=== PATIENT | male | born 1940 | race Caucasian/White ===

== ENCOUNTER 2016-11-15 19:16 | Inpatient (IN) ==
--- NOTE | 2016-11-15 20:10 | Emergency Department Note ---
Arrival - Arrival ED Nursing Triage Note: C/C Pt is being transferred from [facility] for Dx Bilat DVT in femoral arteries. Mode of Arrival: Stretcher - Arrival Chief Complaint: Extremity Problem Stated Complaint: DVT Time Seen by Provider: 11/15/16 19:52 - History of Present Illness HPI Narrative: Patient 76-year-old white male was transferred from [facility] with complaint of bilateral lower extremity pain. Patient was noted to have decreased flow in both superficial femoral arteries and was referred here to Dr. Stokes for further evaluation. Patient does have [id number] history of tobacco abuse but has quit smoking. He denies any trauma or injuries and states she is noticing increasing pain in his lower extremities with ambulation. (Juan J Jolly) Allergies/Adverse Reactions: Allergies Allergy/AdvReac Type Severity Reaction Status Date / Time No Known Allergies Allergy Unverified 11/15/16 19:31 Review of System - Review of System 12 point system: reviewed and no additional remarkable complaints except as stated - Review of System Cardiovascular: Absent: chest pain Gastrointestinal: Absent: abdominal pain, nausea, vomiting Musculoskeletal: Present: as per HPI, leg pain Medical,Surgical,& Family Hx - Medical History Cardio: History of: Hypertension Respiratory: History of: COPD, Respiratory Problems (Spotaneous Pneumo when young) Genitourinary: History of: Prostate Problems (BPH) Musculoskeletal: History of: Musculoskeletal Problems (left knee "cartiledge") - Surgical History Surgical History: noncontributory - Family History Family History: noncontributory - Social History Smoking Status: Current every day smoker Frequency of Alcohol Use: Frequently Type of Drug Use: None Exam - General General appearance: alert, in no apparent distress - Head Head exam: Present: normal inspection - Eye Eye exam: Present: PERRL, EOMI - ENT ENT exam: Present: normal exam, mucous membranes moist - Neck Neck exam: Present: normal inspection - Chest Chest inspection: Present: normal inspection - Respiratory Respiratory exam: Present: normal lung sounds bilaterally - Cardiovascular Cardiovascular exam: Present: regular rate, normal rhythm, normal heart sounds - Abdominal Exam Abdominal exam: Present: soft, normal bowel sounds. Absent: tenderness - Extremities Exam Extremities exam: Present: normal inspection, other (Pedal pulses are not palpable. Both feet are warm to touch) - Neurological Exam Neurological exam: Present: alert, oriented X3, CN II-XII intact. Absent: motor sensory deficit - Psychiatric Psychiatric exam: Present: normal affect - Skin Skin exam: Present: warm, dry Vital Signs: Vital Signs Temperature 100 F H 11/15/16 19:18 Pulse Rate 116 H 11/15/16 19:18 Respiratory Rate 18 11/15/16 19:18 Blood Pressure 117/68 11/15/16 19:18 O2 Sat by Pulse Oximetry 94 L 11/15/16 19:18 Course Course Narrative: Patient discussed with Dr. Jj and Dr. Yasir Wen. Patient be admitted and CTA will be ordered for the morning. CT of the abdomen and chest performed at the other facility are being reviewed by Dr. Wen. (Juan J Jolly) This patient was seen and examined. He has about a 1 month history of right foot numbness and difficulty moving his toes as well as intermittent sharp shooting pains in his right foot and his right buttock. He went to an outside hospital recently where it looked like he had evidence of urinary tract infection and also had chronic ischemic findings of his both feet and ultrasound Doppler with waveforms was performed showing what looked like chronic occlusions of both superficial femoral arteries that reconstituted in the tibial vessels and he did have flow in his feet. He was transferred here for further evaluation and management. Dr. Jolly has discussed the case with Dr. Stokes who agreed to admit the patient get a CT with runoff in the morning. I have examined the patient personally and he has no Doppler signal in his feet but he does have capillary refill and no evidence of acute limb threatening ischemia or gangrene. I do notice that his CK was elevated at the outside hospital but was improving on repeat labs. We will repeat his urinalysis here and get a repeat set of labs prior to another contrast load since he did get a CT scan with IV contrast of his chest abdomen and pelvis yesterday but his creatinine is normal so this should not be a problem to do a runoff CT on this admission. The patient was placed on Plavix and Pletal as well as heparin at the outside hospital. He does not appear to have anything that would require continuation of therapeutic anticoagulation at this time. ( Yasir Wen) Disposition Case discussed with: patient Time of Disposition: 20:12 Clinical Impression: Peripheral vascular disease
[2016-11-15] MEDS ORDERED: ONDANSETRON 4 MG/2 ML VIAL IV PRN (20:12)
[2016-11-15 20:42] LABS: Basophils % 0.1 % (0.0-0.8)
[2016-11-15 21:01] LABS: Hematocrit 51.7 VOL% (42.0-52.0); Hemoglobin 19.5 GM/DL (14.0-18.0); Immature Granulocytes % 0.5 %; Immature Granulocytes Absolute 0.04 #; Lymphocytes # 0.7 10*3/uL (1.4-4.0); Lymphocytes % 8.1 % (21.2-54.2); Mean Corpuscular HGB Conc 37.7 GM/DL (32-36); Mean Corpuscular Hemoglobin 40 PG (27-34); Mean Corpuscular Volume 105.3 FL (87-102); Mean Platelet Volume 9.6 FL (9.6-12.0); Monocytes # 0.5 10*3/uL (0.11-0.8); Monocytes % 5.6 % (1.7-12.7); Neutrophils # 7.1 10*3/uL (1.4-7.4); Neutrophils % 85.7 % (38.7-73.9); Platelet Count 150 T/CUMM (130-400); Red Blood Count 4.91 MC/CUMM (3.8-5.5); White Blood Count 8.2 T/CUMM (4-12)
[2016-11-15] MEDS ORDERED: ENOXAPARIN 60 MG/0.6 ML SYRINGE SUBCUT STA (21:01)
[2016-11-15] MEDS ORDERED: ENOXAPARIN 60 MG/0.6 ML SYRINGE ONE (21:05)
--- NOTE | 2016-11-15 21:05 | Event Note ---
The patient has no contraindications to therapeutic anticoagulation. I have gone over these with him including falls, recent surgery, head trauma. He has no hematuria. 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 He does have runoff to his posterior tibial artery on the left side to his foot but on the right side all 3 of his tibial arteries go out in his mid lower leg. Because of this we will go ahead and treat him with Lovenox therapeutic and allow Dr. Stokes review his images tomorrow.
--- NOTE | 2016-11-15 21:06 | Emergency Department Note ---
Marly Cordova Hilary, am scribing for, and in the presence of, Yasir Wen MD 20:22 . Behzad Cordova Hans, MD, personally performed the services described in this documentation, ascribed by Angeli Luke in my presence, and it is both accurate and complete . Arrival - Arrival Chief Complaint: Extremity Problem Stated Complaint: DVT ED Nursing Triage Note: C/C Pt is being transferred from [facility] for Dx Bilat DVT in femoral arteries. Mode of Arrival: Stretcher Limitations: No Limitations Source: Patient, RN Notes Reviewed Time Seen by Provider: 11/15/16 19:52 - History of Present Illness HPI Narrative: Pt is a 76 y/o male transferred from [facility] via EMS with Dx Bilat DVT in femoral arteries. Pt states that he hasn't had feeling in his feet or toes for 2 months and that he has had intermittent shooting pain down the backside of his legs when he bares weight on them. He reports this feeling getting progressively worse throughout the month and that he just "couldn't stand the pain". He also complaints or right buttocks pain but reports that it doesn't come with the leg pain. No other complaints or problems stated in the ED. Onset (ago): month(s) Consistency: intermittent Severity: moderate Severity scale (1-10): 2 Quality: sharp Allergies/Adverse Reactions: Allergies Allergy/AdvReac Type Severity Reaction Status Date / Time No Known Allergies Allergy Unverified 11/15/16 19:31 Review of System - Review of System 12 point system: reviewed and no additional remarkable complaints except as stated - Review of System Constitutional: Present: weakness. Absent: fever Cardiovascular: Absent: chest pain Musculoskeletal: Present: leg pain (bilaterally) Neurological: Present: weakness (in legs) Medical,Surgical,& Family Hx - Medical History Cardio: History of: Hypertension Respiratory: History of: COPD, Respiratory Problems (Spotaneous Pneumo when young) Genitourinary: History of: Prostate Problems (BPH) Musculoskeletal: History of: Musculoskeletal Problems (left knee "cartiledge") - Social History Smoking Status: Current every day smoker (a pack a day for 54 years) Frequency of Alcohol Use: Frequently Type of Drug Use: None Exam Vital Signs: Vital Signs Temperature 100 F H 07/28/17 19:18 Pulse Rate 116 H 11/15/16 19:18 Respiratory Rate 18 11/15/16 19:18 Blood Pressure 117/68 11/15/16 19:18 O2 Sat by Pulse Oximetry 94 L 11/15/16 19:18 - General General appearance: alert, in no apparent distress - Head Head exam: Present: atraumatic, normocephalic - Eye Eye exam: Present: normal appearance, PERRL, EOMI - ENT ENT exam: Present: mucous membranes moist, TM's normal bilaterally. Absent: mucous membranes dry - Neck Neck exam: Present: full ROM, trachea midline. Absent: tenderness - Chest Chest inspection: Present: symmetric chest wall rise - Respiratory Respiratory exam: Present: normal lung sounds bilaterally. Absent: respiratory distress - Cardiovascular Cardiovascular exam: Present: normal rhythm, tachycardia, normal heart sounds. Absent: murmur, rubs, gallop - Abdominal Exam Abdominal exam: Present: soft, normal bowel sounds. Absent: distention, tenderness - Extremities Exam Extremities exam: Present: full ROM, calf tenderness, other (Right leg is cooler than the left. 4/5 strength in toes and 5/5 dorsal. monophasic doppler in left but not in right leg. Palpable femoral artery. Capillary refill delayed but no doppler signal in right foot. ). Absent: tenderness - Back Exam Back exam: Present: full ROM. Absent: tenderness - Neurological Exam Neurological exam: Present: alert, oriented X3, CN II-XII intact. Absent: motor sensory deficit - Psychiatric Psychiatric exam: Present: normal affect, normal mood - Skin Skin exam: Present: warm, dry, intact, normal color. Absent: rash Course Course Narrative: Please see course narrative that was added to the note that was started by Dr. Jolly. Results - Labs CBC & BMP: 11/15/16 20:27 Lab Results: I have reviewed the patients labs Labs: Laboratory Tests 11/15/16 20:45 POC Creatinine 0.62 L POC Estimated GFR (eGFR) > 60 Disposition Clinical Impression: Peripheral vascular disease Disposition: Still a Patient Condition: Stable Time of Disposition: 21:06
[2016-11-15 21:20] LABS: Calcium 8.2 MG/DL (8.5-10.1); Magnesium 1.8 MG/DL (1.8-2.4); Osmolality,Calculated 270.8 MOS/KG (273-304); Potassium 3.1 MMOL/L (3.5-5.1)
[2016-11-16] MEDS: DEXTROSE 5% NACL 0.45% 1,000 ML IV SCH ×3 (00:07→16:50)
[2016-11-16] MEDS: ALBUTEROL/IPRATROPIUM 3 ML NEB RESP TX SCH ×4 (00:36→20:02)
[2016-11-16] MEDS: ACETAMINOPHEN 325 MG TABLET PO PRN (01:48)
[2016-11-16 04:26] LABS: Apearance,Urine CLEAR (Clear); Bilirubin,Urine Negative (Negative); Blood, Urine Large mg/dL (Negative); Glucose,Urine (UA) Negative (Negative); Ketones,Urine Negative (Negative); Nitrite,Urine Negative (Negative); Protein,Urine Negative; RBC,Urine 13 /HPF (0-4); Urine Color Yellow (Yellow); Urine Specific Gravity 1.006 (1.001-1.035); Urine Urobilinogen < 2.0 EU/DL (0.2-1.0); WBC,Urine 37 /HPF (0-6)
--- NOTE | 2016-11-16 08:10 | CT Report ---
CT angio abdomen/femoral Indication: Peripheral vascular disease. Right calf pain. Comparison: None. Technique: Following administration of intravenous contrast, multiple contiguous axial images were obtained from the mid to lower chest through the feet. Additionally, 3-D Volumetric reconstructions of the aorta and bilateral lower extremity arterial structures were performed. Coronal and sagittal MPR series were initially submitted. The CT examination was performed using one or more of the following dose reduction techniques: Automatic exposure control, adjustment of the mA and kV according to patient size, use of acute or iterative reconstruction techniques. Findings: Vascular findings: The right superficial femoral artery occludes at the origin. Branches of the deep femoral artery supplying intramuscular branches are widely patent and reconstituted flow is noted within the proximal to mid right popliteal artery. The right popliteal artery demonstrates diffuse disease with some areas of mild to moderate stenosis suggested. Below the level of the right knee, 3 vessel runoff to the right ankle is present with gradual diminution of contrast noted within the anterior tibial artery which is suggested to represent flow phenomenon. The left superficial femoral artery occludes at the origin. The left deep femoral artery is patent and provides multiple intramuscular collaterals. The left popliteal artery reconstitutes in the proximal to mid vessel and demonstrates moderate stenosis at the level of the femoral condyles. Flow level of the left knee, relatively minimal disease is present with three-vessel runoff to the left ankle demonstrated. Gradual diminution of contrast within the left anterior tibial artery likely represents flow phenomenon. Lower thoracic aorta demonstrates no significant abnormality. Suprarenal abdominal aorta demonstrates scattered intimal calcification. The celiac axis, common hepatic artery and proper hepatic artery, splenic artery, as well as superior mesenteric artery appear patent. There is moderate to severe stenosis of the splenic artery suggested within the mid vessel at the level of the pancreatic tail. The right renal artery demonstrates intimal calcification with multiple wilton renal arteries noted on the left. The infrarenal abdominal aorta demonstrates diffuse intimal calcification without evidence of aneurysm formation, significant stenosis, or occlusion. Common iliac arteries and external iliac arteries are widely patent. The distal common femoral arteries bilaterally demonstrate intimal calcification with minimal stenosis associated. Nonvascular findings: A large hiatal hernia is present within the chest. Centrilobular emphysematous changes appear moderately advanced. Heart size is normal. Dependently layering attenuation within the gallbladder fundus may reflect vicarious excretion of contrast or high attenuation sludge. No findings are present to suggest acute cholecystitis. Bilateral renal cysts are present. Numerous diverticula are present involving descending and sigmoid colon. No acute inflammatory changes to suggest acute diverticulitis are present. Serrano catheter decompresses the urinary bladder. The prostate appears upper limits of normal in size. Musculature of the lower extremities is bilaterally symmetric with no evidence of significant atrophy. Impression: 1. Bilateral superficial femoral artery occlusion is demonstrated with reperfusion of each popliteal artery arising from geniculate branches and deep muscular branches probably supplied from the deep femoral artery. 2. There appears to be relatively minimal disease below the level of each knee with three-vessel runoff likely. Gradual diminution of contrast within the anterior tibial arteries likely reflects flow phenomenon from flow limitation. 3. Nonvascular findings are present as detailed. 11/16/2016 8:01 AM PROCEDURE INTERPRETED AT [facility] DEPARTMENT OF RADIOLOGY Final Report Signed by: Dr. Brennen Pritchard
--- NOTE | 2016-11-16 09:12 | General Surg History&Physical ---
Assessment and Plan (1) Ischemia of right lower extremity Status: Acute Assessment and plan: Mr. Wilson appears to develop some acute on chronic ischemia of his right lower leg. He has tenderness but without swelling or firmness of the right calf he has coolness the foot and complains of paresthesia of the plantar surface of the foot he has good vein filling does not have clear evidence of deep vein thrombosis but I have some concerns that could be the onset of his acute pain. In review of the CT angiogram he appears to have acute appears to have chronic occlusion of both superficial femoral arteries but with reconstitution of contusion of the popliteals and flow into the tibial vessels at least to the ankle bilaterally. My plan will be to continue Lovenox and to get venous Dopplers this morning of the right leg to be certain there is not deep vein thrombosis. I have explained to Mr. Wilson that he is not in acute risk of limb loss but certainly a right femoral-popliteal bypass may be most appropriate to restore blood flow. I have also explained the necessity of smoking cessation which we will certainly began while here in the hospital. He has been admitted with a Serrano catheter states he has a history of BPH and takes Flomax and developed urinary retention while in the hospital layer I am going to try to take the Serrano catheter out and see if he can urinate without having to replace it during this hospitalization Current Visit: Yes History of Present Illness Chief complaint: painful right leg History of present illness: Mr. Robbins is a 76 year old male Referral [age]-year-old man who was hospitalized at [facility] by Dr. Becker with acute onset of right calf pain and numbness in his right foot he states this developed approximately a week ago. Reportedly there were ultrasounds and CT scans done and Haemophilus that indicated occlusion of the superficial femoral artery. Patient was transferred here yesterday to me after speaking with the hospital at [place] who was not sure that they had the ability to treat patient there. We have repeated a CT angiogram which basically shows an open aorta and iliacs to the common femoral bilateral occlusions of the superficial femorals with reconstitution of the popliteals and what looks like three-vessel runoff and to both lower ankles. Patient has acute pain in the calf and numbness and coolness in the right foot has no past history of deep vein thrombosis. I do not have any reports from [facility] that to tell me in the ultrasound of the veins were done there. Notably the patient has a long history of cigarette smoking and hypertension there is a family history of atherosclerosis he does not however give a history of heart disease heart failure or known pulmonary disease. He does report having some difficulties with BPH and urinary retention apparently had some difficulty when hospitalized and has come here with a Serrano catheter. Reports that he has had back troubles in the past that have caused him to have chronic pain Home Medications Medication Instructions Recorded Confirmed Type Amlodipine Besylate [Amlodipine 1 tablet PO DAILY 11/15/16 11/15/16 History Besylate] Cilostazol [Cilostazol] 1 tablet PO BID 11/15/16 11/15/16 History Fluoxetine HCl [Fluoxetine HCl] 1 caplet PO DAILY 11/15/16 11/15/16 History Hydrocodone/Acetaminophen 1 tablet PO BID PRN 11/15/16 11/15/16 History [Hydrocodon-Acetaminophn 10-325] Lisinopril/Hydrochlorothiazide 1 tablet PO DAILY 11/15/16 11/15/16 History [Lisinopril-Hctz 20-25 mg Tab] Tamsulosin HCl [Tamsulosin HCl] 1 caplet PO DAILY 11/15/16 11/15/16 History cephALEXin [Cephalexin] 1 capsule PO TID 11/15/16 11/15/16 History cloNIDine HCl [Clonidine HCl] 1 tablet PO DAILY 11/15/16 11/15/16 History Allergies Allergy/AdvReac Type Severity Reaction Status Date / Time No Known Allergies Allergy Unverified 11/15/16 19:31 Medical,Surgical,& Family Hx - Medical History Cardio: History of: Hypertension Psychological: History of: Anxiety Disorders, Depression HEENT: History of: Eye Problem ("drifting spots" in field of vision) Endocrine: History of: Dyslipidemia Respiratory: History of: COPD, Respiratory Problems (Spontaneous Pneumo when young (23 yr old)) Genitourinary: History of: Prostate Problems (BPH) Musculoskeletal: History of: Musculoskeletal Problems - Surgical History Abdominal Surgeries: Surgical HX of: Colonoscopy Orthopedic Surgeries: Surgical HX of;: Orthopedic Surgery (Avtar in right pinky, later removed) - Family History Family History: Reports;: Family Cancer (father, melanoma), Additional Family History (mother, aneurysm) - Social History Smoking Status: Current every day smoker Frequency of Alcohol Use: Frequently Type of Drug Use: None Exam - Constitutional Vitals: Period Temp Pulse Resp BP Sys/Sarmiento Pulse Ox Last 24 Hr 97.6 F-100 F 82-116 16-20 96-118/60-71 94-100 General appearance: mild distress, under weight - Head Head exam: Present: normal inspection - Eye Eye exam: Present: EOMI Pupils: Present: SAMEER - ENT Mouth exam: Present: normal voice - Neck Neck exam: Present: normal inspection, trachea midline - Respiratory Respiratory exam: Present: clear to auscultation bilaterally - Cardiovascular Cardiovascular exam: Present: carotid bruit (No carotid bruits), RRR - GI/Abdominal GI/Abdominal exam: Present: normal bowel sounds, soft - Expanded Right Lower Upper Leg exam: Present: normal inspection Knee exam: Present: normal inspection Lower leg exam: Present: tenderness Neuro vascular tendon exam: Present: decreased fine/light touch, extremity cold to touch, pulse deficit (Patient is tender in his calf complains of numbness on the plantar surface of the right foot the foot clearly is cooler than the left but does have reperfusion and is not acutely ischemic. He does not have any significant swelling or evidence of chronic venous stasis.) Gait: Present: not tested/not observed - Back Exam Back exam: Present: normal inspection - Neurological Exam Neurological exam: Present: alert, oriented X3 Speech: Present: normal - Skin Skin exam: Present: dry 12 point system: reviewed and no additional remarkable complaints except as stated Results - Labs CBC & BMP: 11/15/16 20:27 11/15/16 20:27
[2016-11-16] MEDS: PANTOPRAZOLE 40 MG TABLET PO SCH (09:16)
[2016-11-16] MEDS: ENOXAPARIN 60 MG/0.6 ML SYRINGE SUBCUT SCH ×2 (09:16→21:36)
[2016-11-16] MEDS: LISINOPRIL/HCTZ 20-25 MG TABLET PO SCH (10:39)
[2016-11-16] MEDS: amLODIPine 10 MG TABLET PO SCH (10:39)
[2016-11-16] MEDS: FLUoxetine 20 MG CAPSULE PO SCH (10:39)
[2016-11-16] MEDS: POTASSIUM CHLORIDE 20 MEQ TABLET PO SCH ×2 (10:40→21:37)
[2016-11-16] MEDS: TAMSULOSIN 0.4 MG CAPSULE PO SCH (10:40)
[2016-11-16] MEDS: cloNIDine 0.1 MG TABLET PO SCH (10:43)
--- NOTE | 2016-11-16 11:06 | Ultrasound Report ---
US venous doppler LE RT Indication: Acute right calf pain. Comparison: None. Technique: Using transcutaneous probe, color Doppler, spectral Doppler, and grayscale images prior to and following compression were obtained of the right lower extremity. Ultrasound images were captured and stored. Interrogated venous structures include the right common femoral vein, superficial femoral vein (proximal, mid, and distal), and popliteal vein. Findings: There is no evidence of thrombus within the interrogated right lower extremity venous structures. Spectral flow and color flow are present within the interrogated venous segments. Impression: 1. No evidence of venous thrombosis. 11/16/2016 11:03 AM PROCEDURE INTERPRETED AT [facility] DEPARTMENT OF RADIOLOGY Final Report Signed by: Dr. Brennen Pritchard
[2016-11-16] MEDS ORDERED: LORazepam 2 MG/1 ML VIAL IV PRN (18:51)
[2016-11-16] MEDS ORDERED: DIAZEPAM 10 MG/2 ML SYRINGE IM PRN (19:47)
--- NOTE | 2016-11-16 19:53 | Hospitalist Consult Note ---
Assessment and Plan (1) BPH (benign prostatic hyperplasia) Status: Acute Assessment and plan: The patient is admitted to the hospital with vascular insufficiency of the right lower extremity. The patient has developed agitation and symptoms which could be urinary retention. I am going to ask the nurses to obtain bladder scan and perform in and out bladder catheterization if the bladder is greater than 300 cc. Alternatively, the patient might be having withdrawal phenomena. I am going to order Valium oral and IM if necessary in order to improve agitation. Current Visit: Yes (2) Peripheral vascular disease Status: Acute Current Visit: Yes (3) Ischemia of right lower extremity Status: Acute Current Visit: Yes History of Present Illness - Data of Consult Patient: new to practice Consult date: 11/16/16 Requesting Physician: Joel Stokes - Consult Narrative Reason for consult: Agitation History of present illness: Mr. Robbins is a 76 year old male with history of benign prostatic hypertrophy. The patient was admitted to the hospital with concerns of arterial circulation insufficiency in the right leg. The patient has become anxious this afternoon and evening and less cooperative with care. The patient is sitting on toilet and trying to urinate repeatedly. The patient appears befuddled and mildly hypervigilant. The patient was not accusatory towards me or violent. The staff has noticed that he is tachycardic and blood pressure more elevated than before. Serrano catheter had been discontinued earlier in the day. CC: Joel Stokes MD - Home Medications and Allergies Home Medications: Home Medications Medication Instructions Recorded Confirmed Type Amlodipine Besylate [Amlodipine 1 tablet PO DAILY 11/15/16 11/15/16 History Besylate] Cilostazol [Cilostazol] 1 tablet PO BID 11/15/16 11/15/16 History Fluoxetine HCl [Fluoxetine HCl] 1 caplet PO DAILY 11/15/16 11/15/16 History Hydrocodone/Acetaminophen 1 tablet PO BID PRN 11/15/16 11/15/16 History [Hydrocodon-Acetaminophn 10-325] Lisinopril/Hydrochlorothiazide 1 tablet PO DAILY 11/15/16 11/15/16 History [Lisinopril-Hctz 20-25 mg Tab] Tamsulosin HCl [Tamsulosin HCl] 1 caplet PO DAILY 11/15/16 11/15/16 History cephALEXin [Cephalexin] 1 capsule PO TID 11/15/16 11/15/16 History cloNIDine HCl [Clonidine HCl] 1 tablet PO DAILY 11/15/16 11/15/16 History Allergies/Adverse Reactions: Allergies Allergy/AdvReac Type Severity Reaction Status Date / Time No Known Allergies Allergy Unverified 11/15/16 19:31 Medical,Surgical,& Family Hx - Medical History Cardio: History of: Hypertension Psychological: History of: Anxiety Disorders, Depression HEENT: History of: Eye Problem ("drifting spots" in field of vision) Endocrine: History of: Dyslipidemia Respiratory: History of: COPD, Respiratory Problems (Spontaneous Pneumo when young (23 yr old)) Genitourinary: History of: Prostate Problems (BPH) Musculoskeletal: History of: Musculoskeletal Problems - Surgical History Abdominal Surgeries: Surgical HX of: Colonoscopy Orthopedic Surgeries: Surgical HX of;: Orthopedic Surgery (Avtar in right pinky, later removed) - Family History Family History: Reports;: Family Cancer (father, melanoma), Additional Family History (mother, aneurysm) - Social History Smoking Status: Current every day smoker Frequency of Alcohol Use: Frequently Type of Drug Use: None Marital Status: Single Lives With:: Alone Functional capacity: independent ambulation 12 point system: reviewed and no additional remarkable complaints except as stated Exam - Constitutional Vitals: Period Temp Pulse Resp BP Sys/Sarmiento Pulse Ox Last 24 Hr 97.1 F-98.4 F 82-99 16-20 96-138/60-88 94-100 - Respiratory Respiratory exam: Present: clear to auscultation bilaterally - Cardiovascular Cardiovascular exam: Present: regular rate and rhythm - GI/Abdominal GI/Abdominal exam: Present: hypoactive bowel sounds - Neurological Exam Neurological exam: Present: alert, normal gait Results - Labs CBC & BMP: 11/15/16 20:27 11/15/16 20:27 Lab Results: I have reviewed the past 24 hour labs
[2016-11-16] MEDS ORDERED: ENOXAPARIN 60 MG/0.6 ML SYRINGE SUBCUT SCH (21:00)
[2016-11-16] MEDS: DIAZEPAM 5 MG TABLET PO PRN (21:37)
[2016-11-16] MEDS: CILOSTAZOL 100 MG TABLET PO SCH (21:37)
[2016-11-17] MEDS: ALBUTEROL/IPRATROPIUM 3 ML NEB RESP TX SCH ×5 (01:00→19:18)
[2016-11-17 03:17] LABS: Calcium 8.7 MG/DL (8.5-10.1); Magnesium 1.7 MG/DL (1.8-2.4); Osmolality,Calculated 263.2 MOS/KG (273-304); Potassium 3.4 MMOL/L (3.5-5.1)
[2016-11-17] MEDS: DIAZEPAM 5 MG TABLET PO PRN (03:39)
[2016-11-17] MEDS: PANTOPRAZOLE 40 MG TABLET PO SCH (09:12)
[2016-11-17] MEDS: FLUoxetine 20 MG CAPSULE PO SCH (09:12)
[2016-11-17] MEDS: amLODIPine 10 MG TABLET PO SCH (09:13)
[2016-11-17] MEDS: POTASSIUM CHLORIDE 20 MEQ TABLET PO SCH ×2 (09:13→20:28)
[2016-11-17] MEDS: LISINOPRIL/HCTZ 20-25 MG TABLET PO SCH (09:13)
[2016-11-17] MEDS: TAMSULOSIN 0.4 MG CAPSULE PO SCH (09:13)
[2016-11-17] MEDS: cloNIDine 0.1 MG TABLET PO SCH (09:13)
[2016-11-17] MEDS: CILOSTAZOL 100 MG TABLET PO SCH ×2 (09:13→20:28)
[2016-11-17] MEDS: LEVOFLOXACIN INJ 500 MG in PREMIX 1 EACH IV SCH (09:14)
[2016-11-17] MEDS: ENOXAPARIN 60 MG/0.6 ML SYRINGE SUBCUT SCH ×2 (09:14→20:28)
--- NOTE | 2016-11-17 09:26 | Hospitalist Progress Note ---
Assessment and Plan (1) BPH (benign prostatic hyperplasia) Status: Acute Assessment and plan: The patient is admitted to the hospital with vascular insufficiency of the right lower extremity. The patient had urinary retention yesterday and Serrano catheter is now in place. The patient has some symptoms of withdrawal which are improved using oral Valium. I coordinate care with the nurse and recommended that he keep the patient relatively sedated today. The patient himself is more rational and understands that he had some hallucinosis last night. Current Visit: Yes (2) Peripheral vascular disease Status: Acute Current Visit: Yes (3) Ischemia of right lower extremity Status: Acute Current Visit: Yes Hospitalist: Subjective Interval history: The patient is more rational this morning. The patient had postvoid residual greater than 400 yesterday and in and out cath was performed in the evening. He required an additional catheterization this morning and Serrano catheter was resumed. The patient complains of generalized pain. Exam - Constitutional Vitals: Period Temp Pulse Resp BP Sys/Sarmiento Pulse Ox Last 24 Hr 96.8 F-98.7 F 83-120 17-20 110-157/27-102 92-99 - Respiratory Respiratory exam: Present: clear to auscultation bilaterally - Cardiovascular Cardiovascular exam: Present: regular rate and rhythm - GI/Abdominal GI/Abdominal exam: Present: normal bowel sounds Results - Labs CBC & BMP: 11/15/16 20:27 11/17/16 02:10 Lab Results: I have reviewed the past 24 hour labs
--- NOTE | 2016-11-17 12:22 | General Surgery Progress Note ---
Assessment and Plan - Time spent with patient Time spent with patient: Less than 30 minutes (1) Ischemia of right lower extremity Status: Acute Assessment and plan: 11/17: I discussed the case with Dr. Jj. He does not need acute surgical intervention immediately. He is undergoing workup for his vascular insufficiency. He maybe had some alcohol withdrawal and some hallucinations last night. I appreciate the help from hospital medicine. Current Visit: Yes Subjective Patient reports: Present: no new complaints. Absent: still having pain, nausea , vomiting, shortness of breath Exam - Constitutional Vitals: Period Temp Pulse Resp BP Sys/Sarmietno Pulse Ox Last 24 Hr 96.8 F-98.7 F 83-120 17-20 110-157/27-102 92-100 General appearance: no acute distress - Respiratory Respiratory exam: Absent: accessory muscle use - Extremities Exam Extremities exam: Present: other (His lower extremities do not have any obvious signs of ischemia) - Neurological Exam Neurological exam: Present: alert, oriented X3 Results - Labs CBC & BMP: 11/15/16 20:27 11/17/16 02:10 Lab Results: I have reviewed the past 24 hour labs
[2016-11-17] MEDS: DEXTROSE 5% NACL 0.45% 1,000 ML IV SCH (13:35)
[2016-11-17] MEDS ORDERED: SODIUM CHLORIDE 0.9% 500 ML IV ONE (16:16)
[2016-11-18] MEDS: DIAZEPAM 5 MG TABLET PO PRN ×4 (00:40→18:42)
[2016-11-18] MEDS: DEXTROSE 5% NACL 0.45% 1,000 ML IV SCH ×3 (00:46→21:08)
[2016-11-18] MEDS: ALBUTEROL/IPRATROPIUM 3 ML NEB RESP TX SCH ×4 (00:47→19:27)
[2016-11-18 05:18] LABS: Basophils % 0.2 % (0.0-0.8); Eosinophils % 0.1 % (0.00-10.9); Hematocrit 50.6 VOL% (42.0-52.0); Immature Granulocytes % 0.7 %; Immature Granulocytes Absolute 0.06 #; Lymphocytes # 1.9 10*3/uL (1.4-4.0); Mean Corpuscular HGB Conc 37.5 GM/DL (32-36); Mean Corpuscular Hemoglobin 40 PG (27-34); Mean Corpuscular Volume 106.3 FL (87-102); Mean Platelet Volume 10.6 FL (9.6-12.0); Monocytes # 0.7 10*3/uL (0.11-0.8); Neutrophils # 5.7 10*3/uL (1.4-7.4); Platelet Count 150 T/CUMM (130-400); Red Blood Count 4.76 MC/CUMM (3.8-5.5); Red Cell Distribution Width 13.7 % (9.3-17.3); White Blood Count 8.4 T/CUMM (4-12)
[2016-11-18 05:24] LABS: Calcium 8.7 MG/DL (8.5-10.1); Magnesium 1.6 MG/DL (1.8-2.4); Osmolality,Calculated 265.2 MOS/KG (273-304); Potassium 3.7 MMOL/L (3.5-5.1)
[2016-11-18] MEDS: ENOXAPARIN 60 MG/0.6 ML SYRINGE SUBCUT SCH ×2 (08:30→21:54)
[2016-11-18] MEDS: CILOSTAZOL 100 MG TABLET PO SCH ×2 (08:31→21:05)
[2016-11-18] MEDS: LEVOFLOXACIN INJ 500 MG in PREMIX 1 EACH IV SCH (08:31)
[2016-11-18] MEDS: cloNIDine 0.1 MG TABLET PO SCH (08:32)
[2016-11-18] MEDS: amLODIPine 10 MG TABLET PO SCH (08:32)
[2016-11-18] MEDS: TAMSULOSIN 0.4 MG CAPSULE PO SCH ×2 (08:32→21:08)
[2016-11-18] MEDS: FLUoxetine 20 MG CAPSULE PO SCH (08:33)
[2016-11-18] MEDS: POTASSIUM CHLORIDE 20 MEQ TABLET PO SCH ×2 (08:33→21:05)
[2016-11-18] MEDS: PANTOPRAZOLE 40 MG TABLET PO SCH (08:33)
[2016-11-18] MEDS: LISINOPRIL/HCTZ 20-25 MG TABLET PO SCH (08:41)
--- NOTE | 2016-11-18 10:48 | Event Note ---
Mr. Wilson seems to be more calm today still complaining of a good bit of right foot and calf pains and continues to show evidence of more chronic ischemia than acute ischemia. With cancellation of major case at hope to do a femoral-popliteal bypass for him today but he had eaten a large breakfast and that is not going to be feasible I have a very busy schedule tomorrow and therefore will schedule a right femoral-popliteal bypass with in situ fastens saphenous vein for Friday. I have given Mr. Steve [place] patient information booklet and explained to him using the booklet the procedure that were planning to do the risk of bleeding infection restenosis or thrombosis and eventual potential for limb loss he understands and agrees with the plan and I will discuss with him again further tomorrow. In the meantime he was not able to adequately urinate without a catheter and it was replaced I am going to ask Dr. Jolly to see him about urinary retention he tells us that he has got a long history of enlarged prostate but this acute retention may be associated with the increasing narcotic usage for his lower leg pain. He is currently on Levaquin which we will continue but I will also give Ancef concrete block maker for some increased coverage on Friday.
[2016-11-18] MEDS: oxyCODONE/ACETAMINOPHEN 5-325 MG TABLET PO PRN ×2 (12:47→18:41)
--- NOTE | 2016-11-18 12:50 | Physician Query Form ---
CLICK EDIT DOCUMENT TO SELECT QUERY ANSWER --> OK --> SIGN Daisy Sears RN Clinical Electrician Substation Supervisor W) [phone] (f) [phone] [email or web address]: Make your selection(s) from the choices in EACH section by typing an "x" and enter comments in the comment section. Please use your independent medical judgment in providing your response. This request does not imply that any particular answer is desired or expected. CLINICAL INDICATORS: (Providers should not edit this section) Height: 6ft Weight: 119 lbs Dental Financial Coordinator BMI: 17.4 Nutritional supplements: Did not offer supplement as patient stated he had eaten 100% of his breakfast Photo Graphics Librarian notes: Underweight. Loss of body fat. Loss of muscle mass. Generalized muscle weakness Based on the above, which following choice most accurately represents the patient's nutritional status? ( ) Malnutrition ( ) mild ( ) moderate ( ) severe (x ) Protein calorie malnutrition (x ) mild ( ) moderate ( ) severe ( ) Emaciation due to malnutrition ( ) Nutritional marasmus ( ) Cachexia ( ) Underweight ( ) No nutritional deficiency ( ) Other, please specify: ( ) Clinically unable to determine Mild Malnutrition (BMI < 18.5, % Normal Body Weight 85-95%) Moderate Malnutrition (BMI < 17, % Normal Body Weight 75-85%) Severe Malnutrition (BMI < 16, % Normal Body Weight < 75%) Source: Dejah COMMENTS: PLEASE ALSO DOCUMENT RESPONSE IN PROGRESS NOTES AND/OR DISCHARGE SUMMARY Use of terms such as suspected, likely, or probable (associated with a specific diagnosis that is being evaluated, monitored, or treated as if it exists) are acceptable and can be restated in the discharge summary if not ruled out. MTDD
--- NOTE | 2016-11-18 12:54 | Physician Query Form ---
CLICK EDIT DOCUMENT TO SELECT QUERY ANSWER --> OK --> SIGN Daisy Sears RN Clinical Hat Sizer W) [phone] (f) [phone] [email or web address] PROVIDERS: Make your selection(s) from the choices in EACH section by typing an "x" and enter comments in the comment section. Please use your independent medical judgment in providing your response. This request does not imply that any particular answer is desired or expected. CLINICAL INDICATORS: (Providers should not edit this section) Based on documentation in ER record of "He went to an outside hospital recently where it looked like he had evidence of urinary tract infection". Urinalysis showed large leukocytes. Pt. treated with IV Levaquin. Based on the above, could you clarify the appropriate diagnosis, if significant , that supports the above abnormalities and additional evaluation, monitoring, and/or treatment rendered: (x ) Pt. treated for UTI ( ) Pt. not treated for UTI ( ) Other, please specify: ( ) Clinically unable to determine COMMENTS: PLEASE ALSO DOCUMENT RESPONSE IN PROGRESS NOTES AND/OR DISCHARGE SUMMARY Use of terms such as suspected, likely, or probable (associated with a specific diagnosis that is being evaluated, monitored, or treated as if it exists) are acceptable and can be restated in the discharge summary if not ruled out. MTDD
--- NOTE | 2016-11-18 13:12 | Urology Consultation ---
History of Present Illness - Data of Consult Consult date: 11/18/16 - Consult Narrative History of present illness: Mr. Robbins is a 76 year old male This 76-year-old white male has a past history of BPH and is been on Flomax for 2-3 years. We was initially hospitalized he was having difficulty voiding and was catheterized which gave him relief but now the catheter is been in several days and is starting to have what sounds like it may be bladder spasms. He has had several bladder scans to indicate a low residual urine which would indicate there is no obstruction to the Serrano. He is also should develop some blood at the meatus that I think is due to catheter irritation. I am going recommend that we continue Flomax and I am going to DC his Serrano for trial of voiding with intermittent catheterization if he has recurrent retention CC: Joel Stokes MD - Home Medications and Allergies Home Medications: Home Medications Medication Instructions Recorded Confirmed Type Amlodipine Besylate [Amlodipine 1 tablet PO DAILY 11/15/16 11/15/16 History Besylate] Cilostazol [Cilostazol] 1 tablet PO BID 11/15/16 11/15/16 History Fluoxetine HCl [Fluoxetine HCl] 1 caplet PO DAILY 11/15/16 11/15/16 History Hydrocodone/Acetaminophen 1 tablet PO BID PRN 11/15/16 11/15/16 History [Hydrocodon-Acetaminophn 10-325] Lisinopril/Hydrochlorothiazide 1 tablet PO DAILY 11/15/16 11/15/16 History [Lisinopril-Hctz 20-25 mg Tab] Tamsulosin HCl [Tamsulosin HCl] 1 caplet PO DAILY 11/15/16 11/15/16 History cephALEXin [Cephalexin] 1 capsule PO TID 11/15/16 11/15/16 History cloNIDine HCl [Clonidine HCl] 1 tablet PO DAILY 11/15/16 11/15/16 History Allergies/Adverse Reactions: Allergies Allergy/AdvReac Type Severity Reaction Status Date / Time No Known Allergies Allergy Unverified 11/15/16 19:31 Exam - Constitutional Vitals: Period Temp Pulse Resp BP Sys/Sarmiento Pulse Ox Last 24 Hr 97.8 F-99.0 F 62-115 18-21 87-112/54-70 90-100 Results - Labs CBC & BMP: 11/18/16 03:33 11/18/16 03:33
--- NOTE | 2016-11-18 18:23 | Hospitalist Progress Note ---
Hospitalist: Subjective Interval history: The patient is complaining of some pain in his lower extremities but is otherwise comfortable Exam - Constitutional Vitals: Period Temp Pulse Resp BP Sys/Sarmiento Pulse Ox Last 24 Hr 97.6 F-98.7 F 91-111 18-21 87-112/54-70 90-100 Exam: General: No Acute Distress HEENT: Normocephalic, atraumatic, Extra ocular movements intact Neck: Supple, No JVD Chest: Clear to auscultation B/L CV: S1 + S2 audible without murmur, gallop or rub Abd: soft, NT, Non-distended, BS + Ext: No edema Skin: No purpura, bruising or rash Rheumatologic: No Joint deformities Neurologic: Alert Results - Labs CBC & BMP: 11/18/16 03:33 11/18/16 03:33 - Impressions Assessment and Plan (1) BPH (benign prostatic hyperplasia) with obstruction Status: Acute Assessment and plan: He is on Flomax and Dr. Bashir from Urology is following him for trial of voiding. Intermittent catheterization Current Visit: Yes (2) Peripheral vascular disease Status: Acute Current Visit: Yes (3) Ischemia of right lower extremity/peripheral vascular disease Status: Acute Current Visit: Yes Vascular surgery is planning femoral-popliteal bypass soon
[2016-11-19] MEDS: DIAZEPAM 5 MG TABLET PO PRN ×5 (00:28→20:34)
[2016-11-19] MEDS: ALBUTEROL/IPRATROPIUM 3 ML NEB RESP TX SCH ×4 (00:36→19:09)
[2016-11-19] MEDS: oxyCODONE/ACETAMINOPHEN 5-325 MG TABLET PO PRN ×4 (01:39→17:38)
--- NOTE | 2016-11-19 07:55 | Urology Progress Note ---
Urology - PN: Subj Interval history: The patient's PSA is 3.2 and is now on Flomax twice a day. He is not able to void much he has an elevated residual urine. I am going to add Avodart and continue intermittent catheterization Exam - Constitutional Vitals: Period Temp Pulse Resp BP Sys/Sarmiento Pulse Ox Last 24 Hr 97.5 F-98.9 F 80-125 16-20 81-124/54-70 90-100 Results - Labs CBC & BMP: 11/18/16 03:33 11/18/16 03:33
[2016-11-19] MEDS: LEVOFLOXACIN INJ 500 MG in PREMIX 1 EACH IV SCH (08:11)
[2016-11-19] MEDS: FLUoxetine 20 MG CAPSULE PO SCH (08:12)
[2016-11-19] MEDS: amLODIPine 10 MG TABLET PO SCH (08:12)
[2016-11-19] MEDS: PANTOPRAZOLE 40 MG TABLET PO SCH (08:12)
[2016-11-19] MEDS: TAMSULOSIN 0.4 MG CAPSULE PO SCH ×3 (08:12→21:45)
[2016-11-19] MEDS: cloNIDine 0.1 MG TABLET PO SCH (08:12)
[2016-11-19] MEDS: POTASSIUM CHLORIDE 20 MEQ TABLET PO SCH ×2 (08:12→20:35)
[2016-11-19] MEDS: DUTASTERIDE 0.5 MG CAPSULE PO SCH (08:12)
[2016-11-19] MEDS: LISINOPRIL/HCTZ 20-25 MG TABLET PO SCH (08:12)
[2016-11-19] MEDS: CILOSTAZOL 100 MG TABLET PO SCH ×2 (08:12→20:34)
[2016-11-19] MEDS: DEXTROSE 5% NACL 0.45% 1,000 ML IV SCH (08:14)
--- NOTE | 2016-11-19 08:25 | EKG Report ---
Stationary ECG Study [facility] Test Date: 11/19/2016 8:24:04 AM Pat Name: KIKO IZQUIERDO Department: Room: 339 Gender: M Adolescent Psychiatrist: ANGEL : 1940 Requested by: Campbell Turner Order Number: [id number] Reading MD: CHIDI MONAE Intervals [place] Rate: 125 P: 66 MI: 146 QRS: 63 QRSD: 76 T: 70 QT: 312 QTc: 386 Interpretive Statements SINUS TACHYCARDIA at 125 bpm Mild NST Electronically Signed On 11-19-16 08:27:50 CDT by CHIDI MONAE [email or web address]
--- NOTE | 2016-11-19 08:27 | XRay Report ---
XR chest 1V portable Indication: Preop Comparison: Chest x-ray dated November 14, 2016 Technique: Single frontal view of the chest. Findings: Heart size within normal limits. Moderate hiatal hernia. Chronic change of the lungs without focal consolidation, pleural effusion, or pneumothorax. Visualized osseous and surrounding soft tissue structures appear grossly unchanged. IMPRESSION: No acute cardiopulmonary process demonstrated. Moderate hiatal hernia. PROCEDURE INTERPRETED AT [facility] DEPARTMENT OF RADIOLOGY Final Report Signed by: Dr Garland Lyons
[2016-11-19] MEDS ORDERED: BISACODYL 10 MG SUPP RECTAL PRN (09:17)
[2016-11-19] MEDS: ENOXAPARIN 60 MG/0.6 ML SYRINGE SUBCUT SCH ×2 (10:01→20:35)
--- NOTE | 2016-11-19 17:26 | Event Note ---
MrEddie generally appears to be more comfortable today and is prepared for a right femoral-popliteal bypass with in situ vein tomorrow this should improve perfusion of his right lower leg and hopefully resolve the discomfort. He indicated he understands the risk of bleeding infection thrombosis and possible limb loss and agrees with the plan
--- NOTE | 2016-11-19 18:07 | Hospitalist Progress Note ---
Hospitalist: Subjective Interval history: His pain in lower extremities is quite well controlled today and he appears very comfortable. Exam - Constitutional Vitals: Period Temp Pulse Resp BP Sys/Sarmiento Pulse Ox Last 24 Hr 97.5 F-98.9 F 80-125 16-20 81-124/56-70 92-100 Exam: General: No Acute Distress HEENT: Normocephalic, atraumatic, Extra ocular movements intact Neck: Supple, No JVD Chest: Clear to auscultation B/L CV: S1 + S2 audible without murmur, gallop or rub Abd: soft, NT, Non-distended, BS + Ext: No edema Skin: No purpura, bruising or rash Rheumatologic: No Joint deformities Neurologic: Alert Results - Labs CBC & BMP: 11/18/16 03:33 11/18/16 03:33 - Impressions Assessment and Plan (1) BPH (benign prostatic hyperplasia) with obstruction Status: Acute Assessment and plan: He is on Flomax and Avodart and Dr. Bashir from Urology is following him for trial of voiding. Intermittent catheterization Current Visit: Yes (2) Peripheral vascular disease Status: Acute Current Visit: Yes (3) Ischemia of right lower extremity/peripheral vascular disease Status: Acute Current Visit: Yes Vascular surgery is planning femoral-popliteal bypass in the morning
--- NOTE | 2016-11-19 18:09 | Hospitalist Progress Note ---
Hospitalist: Subjective Interval history: Patient still has some pain in her lower extremities especially on trying to walk, she feels quite deconditioned as well Exam - Constitutional Vitals: Period Temp Pulse Resp BP Sys/Sarmiento Pulse Ox Last 24 Hr 97.5 F-98.9 F 80-125 16-20 81-124/56-70 92-100 Exam: General: No Acute Distress HEENT: Normocephalic, atraumatic, Extra ocular movements intact Neck: Supple, No JVD Chest: Clear to auscultation B/L CV: S1 + S2 audible without murmur, gallop or rub Abd: soft, NT, Non-distended, BS + Ext: No edema Skin: No purpura, bruising or rash Rheumatologic: No Joint deformities Neurologic: Alert Results - Labs CBC & BMP: 11/18/16 03:33 11/18/16 03:33 - Impressions (1) Deep vein thrombosis (DVT) of both lower extremities Status: Acute She has been started on Eliquis 10 mg twice daily for 1 week then was switched to 5 mg twice daily on November 25. vegetable harvest worker is working on placing her in a rehab or swing bed
[2016-11-19] MEDS: ACETAMINOPHEN 325 MG TABLET PO PRN (20:34)
[2016-11-20] MEDS: ALBUTEROL/IPRATROPIUM 3 ML NEB RESP TX SCH ×4 (02:08→19:09)
[2016-11-20] MEDS: oxyCODONE/ACETAMINOPHEN 5-325 MG TABLET PO PRN ×2 (02:19→14:40)
[2016-11-20 05:58] LABS: Calcium 8.2 MG/DL (8.5-10.1); Magnesium 1.7 MG/DL (1.8-2.4); Osmolality,Calculated 265.1 MOS/KG (273-304); Potassium 3.5 MMOL/L (3.5-5.1)
[2016-11-20 06:40] LABS: INR 1.2; PT Patient Result 12.8 SECS
--- NOTE | 2016-11-20 07:44 | Urology Progress Note ---
Urology - PN: Subj Interval history: The patient had 350 cc residual when catheterized yesterday and will probably go back to a Serrano postop until he recovers Exam - Constitutional Vitals: Period Temp Pulse Resp BP Sys/Sarmiento Pulse Ox Last 24 Hr 97.8 F-98.9 F 80-121 16-20 92-144/61-77 88-100 Results - Labs CBC & BMP: 11/18/16 03:33 11/20/16 05:16
[2016-11-20] MEDS: PANTOPRAZOLE 40 MG TABLET PO SCH (08:17)
[2016-11-20] MEDS ORDERED: LEVOFLOXACIN INJ 100 ML IV ONE (09:00)
[2016-11-20] MEDS: LEVOFLOXACIN INJ 500 MG in PREMIX 1 EACH IV SCH (09:08)
[2016-11-20] MEDS: POTASSIUM CHLORIDE 20 MEQ TABLET PO SCH ×2 (09:30→21:04)
[2016-11-20] MEDS: LISINOPRIL/HCTZ 20-25 MG TABLET PO SCH (09:30)
[2016-11-20] MEDS: CILOSTAZOL 100 MG TABLET PO SCH ×2 (09:30→21:04)
[2016-11-20] MEDS: amLODIPine 10 MG TABLET PO SCH (09:30)
[2016-11-20] MEDS: TAMSULOSIN 0.4 MG CAPSULE PO SCH ×3 (09:30→21:05)
[2016-11-20] MEDS: ENOXAPARIN 60 MG/0.6 ML SYRINGE SUBCUT SCH ×2 (09:30→21:16)
[2016-11-20] MEDS: FLUoxetine 20 MG CAPSULE PO SCH (09:30)
[2016-11-20] MEDS: DUTASTERIDE 0.5 MG CAPSULE PO SCH (09:30)
[2016-11-20] MEDS: cloNIDine 0.1 MG TABLET PO SCH (09:30)
[2016-11-20] MEDS ORDERED: PHENYLEPHRINE DRIP 20 MG/250 ML PREMIX IV ONE (10:42)
[2016-11-20] MEDS ORDERED: HEPARIN 5,000 UNIT/1 ML VIAL ONE ×2 (10:48→10:50)
[2016-11-20] MEDS ORDERED: VANCOMYCIN 1,000 MG VIAL ONE (10:51)
[2016-11-20] MEDS ORDERED: TISSUE ADHESIVE 1 EACH APPLICATOR TOP ONE (11:42)
[2016-11-20] MEDS ORDERED: ONDANSETRON 4 MG/2 ML VIAL IV PRN ×2 (11:46→12:37)
[2016-11-20] MEDS ORDERED: NALOXONE 0.4 MG/ML VIAL IV PRN (11:51)
--- NOTE | 2016-11-20 11:57 | Operative Note ---
Date of procedure: 11/20/16 Procedure: Dr. Stokes operative report Ilir Robbins. Surgeon: Kike Anesthesia: Bird general endotracheal Preoperative diagnosis: Ischemic right lower leg with superficial femoral artery occlusion. Postoperative diagnosis: Same Procedure: A right femoral-popliteal bypass with in situ saphenous vein Indication for the procedure Mr. Wilson is a 76-year-old man with ischemic right lower extremity associated with right superficial femoral occlusion I offered a right femoral-popliteal bypass I have explained the alternatives risks and complications which he understands fully and accepts Description of the procedure: After the induction of general endotracheal anesthesia the patient's lower abdomen right groin and thigh and lower leg are prepped with ChloraPrep and Ioban draped in usual fashion the foot was placed in an isolation bag I began by making an incision over the saphenous vein at the pump distal popliteal space I dissected out a satisfactory cephalic vein and controlled it but did not divide it at this point time branches were hemoclipped and divided I then dissected into the popliteal space locating a good popliteal artery that would be satisfactory for bypassing it was controlled with small vessel loops. Then turned my attention to the right groin made an incision over the femoral canal and dissected out the proximal saphenous vein and the common femoral artery are noted that the common femoral artery had a moderate amount of plaquing but had a soft location just above the profunda due to the plaquing I actually control the external iliac artery. The patient received 5000 units of intravenous heparin I used a Satinsky over the saphenofemoral junction divided the saphenofemoral junction and repaired the femoral vein with a running 5-0 Prolene suture performed proximal valve lysis anastomosis the proximal saphenous vein to the common femoral artery with a running 5-0 Prolene suture under loupe magnification. This restored flow into the upper saphenous vein but branches valves were intact I then turned by attention to the lower vein divided it after hemoclipping the distal portion venography was carried out to sade what appeared to be 3 branches it would be fistulous these were simply marked at this stage of then performed valve lysis with a low matrix valvulotome obtained good flow at the distal and. The vein was trimmed appropriately and the popliteal artery was controlled with Vesseloops a arteriotomy was made on the medial aspect of the popliteal artery the vein was anastomosed end-to-side with a running 6-0 Prolene suture under loupe magnification. 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 Completion arteriogram was carried out which showed no further fistulas good flow into the distal popliteal artery and starting into the trifurcation vessels there was good flow by Doppler as well. Hemostasis was good I therefore did not reverse heparin . The incisions were irrigated with vancomycin and the groin incision was closed with 2 layers of running 2-0 Monocryl the popliteal incision with a running 3-0 Monocryl in the subcu skin incisions were all closed with clips blood loss is estimated at 150 cc sponge needle aspirate counts are correct and the patient taken to recovery in good condition Surgeon / Physician: Joel Stokes Results - Labs CBC & BMP: 11/18/16 03:33 11/20/16 05:16 Discharge Plan - Discharge Medications No Action cloNIDine HCl [Clonidine HCl] 1 tablet PO DAILY cephALEXin [Cephalexin] 1 capsule PO TID Tamsulosin HCl [Tamsulosin HCl] 1 caplet PO DAILY Lisinopril/Hydrochlorothiazide [Lisinopril-Hctz 20-25 mg Tab] 1 tablet PO DAILY Hydrocodone/Acetaminophen [Hydrocodon-Acetaminophn 10-325] 1 tablet PO BID PRN PRN Reason: Pain Fluoxetine HCl [Fluoxetine HCl] 1 caplet PO DAILY Amlodipine Besylate [Amlodipine Besylate] 1 tablet PO DAILY Cilostazol [Cilostazol] 1 tablet PO BID - Follow Up or Referral - Forms/Instructions
--- NOTE | 2016-11-20 12:16 | Anesthesia Post-Op ---
Anesthesia Post OP - Post Ansesthetic Evaluation Patient seen in post op: Yes Resp: within normal limits CV: within normal limits Mental: within normal limits Temp: within normal limits [id number]: within normal limits Nausea and Vomiting: within normal limits Pain: within normal limits
[2016-11-20] MEDS ORDERED: HEPARIN/NACL 0.9% 2 UNITS/ML 500 ML IV ONE (12:26)
[2016-11-20] MEDS ORDERED: PHENYLEPHRINE IV ONE (12:26)
[2016-11-20] MEDS ORDERED: PROPOFOL 200 MG/20 ML VIAL IV ONE (12:26)
[2016-11-20] MEDS ORDERED: HEPARIN 10,000 UNIT/10 ML VIAL ONE (12:26)
[2016-11-20] MEDS ORDERED: SEVOFLURANE 1 UNIT/15 MINUTE INH ONE (12:26)
[2016-11-20] MEDS ORDERED: GLYCOPYRROLATE 0.4 MG/2 ML VIAL ONE (12:27)
[2016-11-20] MEDS ORDERED: ONDANSETRON 4 MG/2 ML VIAL ONE ×2 (12:27→12:38)
[2016-11-20] MEDS ORDERED: MIDAZOLAM 2 MG/2 ML VIAL ONE (12:27)
[2016-11-20] MEDS ORDERED: ACETAMINOPHEN 1,000 MG/100 ML VIAL IV ONE (12:27)
[2016-11-20] MEDS ORDERED: fentaNYL 100 MCG/2 ML VIAL ONE (12:27)
[2016-11-20] MEDS ORDERED: ROCURONIUM 100 MG/10 ML VIAL IV ONE (12:28)
[2016-11-20 12:29] LABS: Hematocrit 50.8 VOL% (42.0-52.0); Hemoglobin 18.9 GM/DL (14.0-18.0)
[2016-11-20] MEDS ORDERED: HYDROmorphone 2 MG/1 ML VIAL IV PRN (12:37)
[2016-11-20] MEDS ORDERED: HYDROmorphone 2 MG/1 ML VIAL ONE (12:38)
[2016-11-20] MEDS ORDERED: HYDROmorphone PCA 30 MG/30 ML SYRINGE IV ONE (12:57)
[2016-11-20] MEDS: HYDROmorphone PCA 30 MG/30 ML SYRINGE IV SCH (12:58)
[2016-11-20] MEDS: ASPIRIN CHEW 81 MG TABLET PO SCH (13:00)
--- NOTE | 2016-11-20 15:28 | Event Note ---
Janial still fairly sleepy but his foot is warm and pink and well perfused not sure I can palpate pedal pulses now I thought I might have felt a dorsalis pedis and recovery no significant hematomas developing at any of the incisions are good pulse in the vein graft itself
--- NOTE | 2016-11-20 15:49 | Hospitalist Progress Note ---
Assessment and Plan (1) BPH (benign prostatic hyperplasia) Status: Acute Assessment and plan: The patient is admitted to the hospital with vascular insufficiency of the right lower extremity. The patient has had the peripheral vascular bypass. The patient required in and out bladder catheterization this morning. Current Visit: Yes (2) Peripheral vascular disease Status: Acute Current Visit: Yes (3) Ischemia of right lower extremity Status: Acute Current Visit: Yes Hospitalist: Subjective Interval history: The patient had right leg peripheral artery bypass today. The patient is awake and alert. The patient has some disorientation concerning time. Exam - Constitutional Vitals: Period Temp Pulse Resp BP Sys/Sarmiento Pulse Ox Last 24 Hr 97.0 F-98.9 F 94-121 16-20 101-144/57-91 88-100 General appearance: mild distress - Respiratory Respiratory exam: Present: clear to auscultation bilaterally - Cardiovascular Cardiovascular exam: Present: regular rate and rhythm Results - Labs CBC & BMP: 11/20/16 12:23 11/20/16 05:16 Lab Results: I have reviewed the past 24 hour labs Quality Measures - VTE Contraindication to Pharmacological VTE Prophylaxis: High Risk of Bleeding
[2016-11-20] MEDS: DOCUSATE SODIUM 100 MG CAPSULE PO SCH (21:04)
[2016-11-20] MEDS: DEXTROSE 5% NACL 0.45% 1,000 ML IV SCH (21:19)
[2016-11-20] MEDS: ZINC OXIDE 16% PASTE 57 GM TUBE TOP SCH (21:28)
[2016-11-21] MEDS: ALBUTEROL/IPRATROPIUM 3 ML NEB RESP TX SCH ×4 (01:05→20:01)
[2016-11-21 05:41] LABS: Hemoglobin 18.2 GM/DL (14.0-18.0)
[2016-11-21 06:18] LABS: Calcium 7.8 MG/DL (8.5-10.1); Osmolality,Calculated 265.1 MOS/KG (273-304); Potassium 3.6 MMOL/L (3.5-5.1)
--- NOTE | 2016-11-21 07:26 | Urology Progress Note ---
Urology - PN: Subj Interval history: Last residual was 375 cc. Continue Flomax twice a day and Avodart. We will see if patient can do self-catheterization as he may need this post discharge Exam - Constitutional Vitals: Period Temp Pulse Resp BP Sys/Sarmiento Pulse Ox Last 24 Hr 97.0 F-98.7 F 94-122 16-20 106-148/57-91 94-100 Results - Labs CBC & BMP: 11/21/16 04:46 11/21/16 04:46
[2016-11-21] MEDS: TAMSULOSIN 0.4 MG CAPSULE PO SCH ×3 (09:12→21:44)
[2016-11-21] MEDS: DUTASTERIDE 0.5 MG CAPSULE PO SCH (09:12)
[2016-11-21] MEDS: amLODIPine 10 MG TABLET PO SCH (09:13)
[2016-11-21] MEDS: LISINOPRIL/HCTZ 20-25 MG TABLET PO SCH (09:13)
[2016-11-21] MEDS: cloNIDine 0.1 MG TABLET PO SCH (09:14)
[2016-11-21] MEDS: CILOSTAZOL 100 MG TABLET PO SCH (09:15)
[2016-11-21] MEDS: ASPIRIN CHEW 81 MG TABLET PO SCH (09:15)
[2016-11-21] MEDS: DOCUSATE SODIUM 100 MG CAPSULE PO SCH ×2 (09:15→21:47)
[2016-11-21] MEDS: POTASSIUM CHLORIDE 20 MEQ TABLET PO SCH ×2 (09:15→21:44)
[2016-11-21] MEDS: FLUoxetine 20 MG CAPSULE PO SCH (09:15)
[2016-11-21] MEDS: LEVOFLOXACIN INJ 500 MG in PREMIX 1 EACH IV SCH (09:16)
[2016-11-21] MEDS: PANTOPRAZOLE 40 MG TABLET PO SCH (09:17)
[2016-11-21] MEDS: ENOXAPARIN 60 MG/0.6 ML SYRINGE SUBCUT SCH ×2 (09:25→21:44)
--- NOTE | 2016-11-21 11:03 | Event Note ---
Mr. Wilson's foot is warm and well-perfused he states feels more comfortable has mild edema has a very weakly palpable dorsalis pedis pulse femoral- popliteal graft looks good with no hematoma. Still having difficulty with urinating and having to do in and out catheterization. Dr. Bashir is suggesting patient learn how to do that himself before discharge. I think the situation for Mr. Rodriguez is very tenuous at home he states he lives in a trailer camper has go up and down steps into it think we need to look at finding him a swing bed for the next several weeks. Also would like physical therapy to start ambulating him. I will keep his IV fluids going through today but will stop them in the [employer]AF[employer] tomorrow. I am also going to stop Pletal as we have revascularized and there is complication of Pletal along with Levaquin
[2016-11-21] MEDS: HYDROmorphone PCA 30 MG/30 ML SYRINGE IV SCH (12:40)
[2016-11-21] MEDS: ZINC OXIDE 16% PASTE 57 GM TUBE TOP SCH ×2 (17:25→21:45)
--- NOTE | 2016-11-21 20:23 | Hospitalist Progress Note ---
Hospitalist: Subjective Interval history: Pain is is better controlled today. Exam - Constitutional Vitals: Period Temp Pulse Resp BP Sys/Sarmiento Pulse Ox Last 24 Hr 97.7 F-98.3 F 97-119 16-20 88-141/59-87 94-100 Exam: General: No Acute Distress HEENT: Normocephalic, atraumatic, Extra ocular movements intact Neck: Supple, No JVD Chest: Clear to auscultation B/L CV: S1 + S2 audible without murmur, gallop or rub Abd: soft, NT, Non-distended, BS + Ext: No edema Skin: No purpura, bruising or rash Rheumatologic: No Joint deformities Neurologic: Alert Results - Labs CBC & BMP: 11/21/16 04:46 11/21/16 04:46 - Impressions Assessment and Plan (1) BPH (benign prostatic hyperplasia) Status: Acute Assessment and plan: The patient is admitted to the hospital with vascular insufficiency of the right lower extremity. The patient has had the peripheral vascular bypass. The patient required in and out bladder catheterization this morning. Current Visit: Yes (2) Peripheral vascular disease Status: Acute Current Visit: Yes (3) Ischemia of right lower extremity Status: Acute Current Visit: Yes (4) BPH with obstruction Status: Acute Current Visit: Yes Continue Flomax and Avodart and intermittent catheterization Patient may need to go to swing bed. My last note dated November 19 was entered in error was made for different patient but I do not find any option to cancel it. Quality Measures - VTE Contraindication to Pharmacological VTE Prophylaxis: High Risk of Bleeding
[2016-11-22] MEDS: ALBUTEROL/IPRATROPIUM 3 ML NEB RESP TX SCH ×3 (01:56→13:01)
--- NOTE | 2016-11-22 07:43 | Urology Progress Note ---
Urology - PN: Subj Interval history: The patient's residual urine is still above 300. He may need self- catheterization once or twice a day post discharge and I am asked the nurses to work with him to learn how to do this Exam - Constitutional Vitals: Period Temp Pulse Resp BP Sys/Sarmiento Pulse Ox Last 24 Hr 97.8 F-99.4 F 98-118 16-20 88-104/58-70 93-100 Results - Labs CBC & BMP: 11/21/16 04:46 11/21/16 04:46
[2016-11-22] MEDS ORDERED: LEVOFLOXACIN 500 MG TABLET PO SCH ×2 (09:00)
[2016-11-22] MEDS: DEXTROSE 5% NACL 0.45% 1,000 ML IV SCH ×2 (09:03→09:04)
[2016-11-22] MEDS: ENOXAPARIN 60 MG/0.6 ML SYRINGE SUBCUT SCH (09:15)
[2016-11-22] MEDS: DUTASTERIDE 0.5 MG CAPSULE PO SCH (09:15)
[2016-11-22] MEDS: TAMSULOSIN 0.4 MG CAPSULE PO SCH ×2 (09:15→09:16)
[2016-11-22] MEDS: POTASSIUM CHLORIDE 20 MEQ TABLET PO SCH (09:15)
[2016-11-22] MEDS: LISINOPRIL/HCTZ 20-25 MG TABLET PO SCH (09:15)
[2016-11-22] MEDS: ZINC OXIDE 16% PASTE 57 GM TUBE TOP SCH (09:16)
[2016-11-22] MEDS: amLODIPine 10 MG TABLET PO SCH (09:16)
[2016-11-22] MEDS: FLUoxetine 20 MG CAPSULE PO SCH (09:16)
[2016-11-22] MEDS: DOCUSATE SODIUM 100 MG CAPSULE PO SCH (09:16)
[2016-11-22] MEDS: cloNIDine 0.1 MG TABLET PO SCH (09:16)
[2016-11-22] MEDS: ASPIRIN CHEW 81 MG TABLET PO SCH (09:16)
[2016-11-22] MEDS: PANTOPRAZOLE 40 MG TABLET PO SCH (09:17)
--- NOTE | 2016-11-22 11:03 | Discharge Summary ---
Hospital Course - Hospital Course Hospital Course: Ilir Robbins is a 76-year-old man referred to us from Dr. Rocky Crowe with an acutely painful right lower leg that was ischemic although not with limb threatening ischemia. Initial CT angiogram indicated occlusion of bilateral superficial femoral arteries with actually reasonable popliteals and runoff. The right leg was symptomatic the left was not. He was not a candidate for endovascular repair therefore I performed a right femoral- popliteal bypass on 12-05. Using in situ saphenous vein. This is working well his foot is immediately warmer pinker have intermittently been able to palpate the dorsalis pedis pulses he has a good pulse in the graft is palpable he has some contusion around the leg but no significant hematomas. He complains of pain between his eyes and the back of his neck along the leg his pain and discomfort in the foot and posterior calf seem to be resolved. He is also had a great deal of difficulty with urinary retention and is seen Dr. Bashir who feels that we are going to have to do intermittent catheterizations in addition to the Flomax and Avodart he was previously on Flomax and had a normal history of BPH but it became acutely worse with this hospitalization problem. This point his incisions look good and I think he will be a good candidate to go to the swing bed. He tells me that he is living in a camper because of home he was living in his become unlivable due to this repair. There was question of alcohol withdrawal initially when he came here that was controlled with Ativan and there was also is a heavy cigarette usage prior to admission. Apparently we have found a swing bed placement in [place] and will have him transferred there. I would like to see him week after next for staple removal. Swing bed he should continue aspirin and first Plavix I will stop the Pletal that he was previously on he was on Levaquin I do not know that we need to continue that certainly not for his leg. I will see him for staple removal in approximately 10-12 days. Diagnosis - Discharge Diagnosis (1) Ischemia of right lower extremity Status: Acute Discharge Plan - Discharge Data Disposition: Swing Bed, Hos Based, [facility] Condition at Discharge: Stable Discharge Diet: advance to your usual diet Activity: as per physical therapy Hygiene: may shower Weight Bearing at Discharge: full weight bearing Driving: not until seen by doctor Contact your physician if you experience:: fever over 101, Redness or swelling, Bleeding Wound / Dressing Care Instructions: shower daily, dry incisions with alcohol. apply light dressing - Discharge Medications New Albuterol/Ipratropium Neb [Duoneb] 3 ml RESP TX RT Q6H Diazepam Tab [Valium Tab] 10 mg PO Q2H PRN tablet PRN Reason: Anxiety Docusate Sodium Cap [Colace Cap] 100 mg PO BID capsule FLUoxetine [PROzac] 40 mg PO DAILY capsule Lisinopril/Hctz 20-25 [Prinzide 20-25] 1 tablet PO DAILY tablet oxyCODONE/ACETAMINOPHEN 5-325 [Percocet 5-325] 2 tablet PO Q6H PRN tablet PRN Reason: Pain Moderate (4-7) Potassium Chloride Cap/Tab [K Dur] 20 meq PO BID tablet Zinc Oxide 16% Paste [Myra's Butt Paste] 1 applic TOP BID applic Aspirin Chew Tab 81 mg PO DAILY tablet Dutasteride [Avodart] 0.5 mg PO DAILY capsule Tamsulosin [Flomax] 0.4 mg PO BID capsule Continue cloNIDine HCl [Clonidine HCl] 1 tablet PO DAILY Amlodipine Besylate 1 tablet PO DAILY Discontinued cephALEXin [Cephalexin] 1 capsule PO TID Tamsulosin HCl [Tamsulosin HCl] 1 caplet PO DAILY Lisinopril/Hydrochlorothiazide [Lisinopril-Hctz 20-25 mg Tab] 1 tablet PO DAILY Hydrocodone/Acetaminophen [Hydrocodon-Acetaminophn 10-325] 1 tablet PO BID PRN PRN Reason: Pain Fluoxetine HCl [Fluoxetine HCl] 1 caplet PO DAILY Cilostazol [Cilostazol] 1 tablet PO BID - Follow Up or Referral Follow Up: Joel Stokes MD [Physician] - 12/03/16 - Forms/Instructions Exam - Constitutional Vitals: Period Temp Pulse Resp BP Sys/Sarmiento Pulse Ox Last 24 Hr 97.8 F-99.4 F 99-118 16-20 88-104/58-70 93-100 Discharge Results Procedures and tests throughout hospitalization: Pending Orders 11/22/16 07:41 UA [Urinalysis] Routine DS: Provider Date of admission: 11/15/16 20:12 Primary care physician: . No PCP Attending physician on admission: Joel Stokes MD Consults: 11/15/16 23:37 Consult to Dietitian [CONS] Routine Reason for Dietitian: Other 11/16/16 08:58 PT [Consult to Physical Therapy] [CONS] Routine Reason for Physical Therapy: Ambulation 11/16/16 18:54 Consult to Physician [CONS] Routine Comment: Consulting Provider: Consult to Specialist Group: Hospitalist When should Consulting Provider be notified: Now Person Notified: Dr. Bajwa Date Notified: 11/16/16 Time Notified: 18:58 11/18/16 10:39 Consult to Physician [CONS] Routine Comment: urinary retention Consulting Provider: Wayne Jolly Consulting Provider Notified: Yes When should Consulting Provider be notified: Now Person Notified: carie baldwin Date Notified: 11/18/16 Time Notified: 10:50 11/21/16 11:01 Consult to Case Mgmt/Social Srvs [CONS] Routine Reason for Case Mgmt/Social Srvs: Discharge Planning 11/21/16 14:45 Consult to Case Mgmt/Social Srvs [CONS] Routine Reason for Case Mgmt/Social Srvs: Swingbed/SNF/Group Home Discharging clinician: Joel Stokes MD
--- NOTE | 2016-11-22 11:25 | Case Mgmt Physician Query Form ---
TB Signs and Symptoms Screening ([place]) INSTRUCTIONS: To be completed annually on residents/staff with a significant Tuberculin Skin Test (TST) upon admission/hire or a prior significant TST. To be completed on all staff at hire. Please respond to each listed symptom with an (X) in either the "YES" or "NO" box. Do you currently have any of the following symptoms: YES NO ( ) (x ) A cough If yes, is it: ( ) Productive ( ) Non- productive ( ) (x ) Hemoptysis (spitting up blood) ( ) (x ) Chest pains ( ) (x ) Weight Loss ( ) (x ) Fever ( ) (x ) Night Sweats ( ) (x ) Weakness ( ) (x ) Loss of Appetite ( ) (x ) Difficulty Breathing If you answered YES" to any of the above questions, how long have symptoms been present? Comments: If you have any questions, please contact me. Thank you, Bia Smith RN, Office : [phone] Email : [email or web address]
[2016-11-22] MEDS: HYDROmorphone PCA 30 MG/30 ML SYRINGE IV SCH (11:53)
[2016-11-22] MEDS ORDERED: TUBERCULIN SKIN TEST 0.1 ML SYRINGE INTRADERM ONE (12:00)
[2016-11-22 15:06] LABS: Apearance,Urine CLEAR (Clear); Bacteria,Urine Occasional /HPF (Few); Bilirubin,Urine Negative (Negative); Blood, Urine Moderate mg/dL (Negative); Glucose,Urine (UA) Negative (Negative); Ketones,Urine Negative (Negative); Mucus,Urine Occasional /LPF (Occasional); Nitrite,Urine Negative (Negative); Protein,Urine Negative; RBC,Urine 3 /HPF (0-4); Urine Color Yellow (Yellow); Urine Specific Gravity 1.005 (1.001-1.035); WBC,Urine 2 /HPF (0-6)
[2016-11-22 17:15] VITALS: BP 121/71
== END 2016-11-22 17:30 | disposition swing bed (61) | DRG 253 ==
LOC: N.ED 19:16 → N.EDINP 20:12 → N.3E 21:28
PROVIDERS: ADMIT Surgery; ATTEND Surgery

== ENCOUNTER 2016-12-19 01:04 | Inpatient (IN) ==
--- NOTE | 2016-12-19 01:24 | Emergency Department Note ---
Arrival - Arrival Chief Complaint: Post Surgical Stated Complaint: fem pop bleed ED Nursing Triage Note: Patient to ED from [facility] ED for further evaluation of bleeding from right fem pop that was performed per Dr Jj on 05/2016. Patient lives in [place] [facility] where is was found in a pool off blood. estimated blood loss is 2L. Patient was transferred to the closest ED and was given a total of 4L fluid and 2 units of PRBC, o neg. Patient arrives with CAT tourniquet in place to right fem artery. Mode of Arrival: Stretcher Time Seen by Provider: 12/19/16 01:15 - History of Present Illness HPI Narrative: This is a 76-year-old white male who had a femoral-popliteal bypass surgery using a saphenous vein graft on December 05, 2016 who had been transferred to a rehab facility in [place] who developed brisk bleeding from the incision site earlier today and was transferred to a local hospital with a blood pressure of 70. The patient was given 2 units of O- blood and 4 units of intravenous fluids with the tourniquet being placed above the incision site. The tourniquet has been in place for approximately 2 hours at the time the patient arrived in the emergency department. The case was discussed with who agreed to come in and see the patient for evaluation. Blood pressure on arrival was 130 systolic Allergies/Adverse Reactions: Allergies Allergy/AdvReac Type Severity Reaction Status Date / Time Cephalosporins AdvReac Unknown/Unable Verified 12/19/16 01:21 to obtain Home Medications: Home Medications Medication Instructions Recorded Confirmed Type Amlodipine Besylate 1 tablet PO DAILY 11/15/16 11/15/16 History cloNIDine HCl [Clonidine HCl] 1 tablet PO DAILY 11/15/16 11/15/16 History Albuterol/Ipratropium Neb [Duoneb] 3 ml RESP TX RT Q6H 11/22/16 Rx Aspirin Chew Tab 81 mg PO DAILY tablet 11/22/16 Rx Diazepam Tab [Valium Tab] 10 mg PO Q2H PRN tablet 11/22/16 Rx Docusate Sodium Cap [Colace Cap] 100 mg PO BID capsule 11/22/16 Rx Dutasteride [Avodart] 0.5 mg PO DAILY capsule 11/22/16 Rx FLUoxetine [PROzac] 40 mg PO DAILY capsule 11/22/16 Rx Lisinopril/Hctz 20-25 [Prinzide 1 tablet PO DAILY tablet 11/22/16 Rx 20-25] Potassium Chloride Cap/Tab [K Dur] 20 meq PO BID tablet 11/22/16 Rx Tamsulosin [Flomax] 0.4 mg PO BID capsule 11/22/16 Rx Zinc Oxide 16% Paste [Myra's 1 applic TOP BID applic 11/22/16 Rx Butt Paste] oxyCODONE/ACETAMINOPHEN 5-325 2 tablet PO Q6H PRN tablet 11/22/16 Rx [Percocet 5-325] Review of System - Review of System Constitutional: Absent: fever, night sweats Eyes: Absent: redness, other Head/Ears/Nose/Throat: Absent: epistaxis, nasal drainage Respiratory: Absent: respiratory distress, wheezing Cardiovascular: Absent: dyspnea on exertion, edema Gastrointestinal: Absent: diarrhea, constipation, hematemesis Genitourinary male: Absent: hematuria, discharge, testicular pain Musculoskeletal: Absent: joint swelling, lower back pain, leg pain Skin: Absent: change in color, change in hair/nails Neurological: Absent: numbness, paresthesias Psychiatric: Absent: anxiety, suicidal thoughts Endocrine: Absent: heat intolerance, polydipsia Hematological/Lymphatic: Absent: easy bruising, lymphadenopathy Allergic/Immunologic: Absent: urticaria, itchy eyes Medical,Surgical,& Family Hx - Medical History Cardio: History of: Hypertension Psychological: History of: Anxiety Disorders, Depression HEENT: History of: Eye Problem ("drifting spots" in field of vision) Endocrine: History of: Dyslipidemia Respiratory: History of: COPD, Respiratory Problems (Spontaneous Pneumo when young (23 yr old)) Genitourinary: History of: Prostate Problems (BPH) Musculoskeletal: History of: Musculoskeletal Problems - Surgical History Abdominal Surgeries: Surgical HX of: Colonoscopy Orthopedic Surgeries: Surgical HX of;: Orthopedic Surgery (Avtar in right pinky, later removed) - Family History Family History: Reports;: Family Cancer (father, melanoma) - Social History Smoking Status: Never smoker Frequency of Alcohol Use: None Type of Drug Use: None Exam Vital Signs: Vital Signs Temperature 98.7 F 12/19/16 01:04 Pulse Rate 90 12/19/16 01:04 Respiratory Rate 17 12/19/16 01:04 Blood Pressure 144/77 12/19/16 01:04 O2 Sat by Pulse Oximetry 100 12/19/16 01:04 - General Exam limited due to: ALOC - Head Head exam: Present: atraumatic, normocephalic - Eye Eye exam: Present: PERRL, EOMI - ENT ENT exam: Present: normal exam - Neck Neck exam: Present: normal inspection, full ROM - Chest Chest inspection: Present: normal inspection - Cardiovascular Cardiovascular exam: Present: regular rate, normal rhythm - Abdominal Exam Abdominal exam: Present: soft, normal bowel sounds - Extremities Exam Extremities exam: Present: other (The right leg is warm and pink.) Course Course Narrative: The patient had the tourniquet removed and the bleeding has stopped and the vein graft is intact. The patient will be admitted to the hospital by Dr. Stokes. Disposition Clinical Impression: Post-op bleeding Disposition: Still a Patient Additional Instructions: The patient had the tourniquet removed and the bleeding has stopped and the vein graft is intact. The patient will be admitted to the hospital by Dr. Stokes.
--- NOTE | 2016-12-19 01:35 | General Surg History&Physical ---
Assessment and Plan (1) bleeding femoral popliteal graft Status: Acute Assessment and plan: I suspect this is a sentinel hemorrhage from the vein graft in the open wound that was healing in by secondary intention. It appears the bleeding is under control at this point time with flow in the vein graft. I will maintain her dressing on the graft tonight and plan exploration later in the morning during regular surgical hours. I explained this plane plan to the patient and he agrees. Current Visit: Yes History of Present Illness Chief complaint: bleeding femoral popliteal graft History of present illness: Mr. Robbins is a 76 year old male Mr. Jennifer Wilson is a 76-year-old man approximately 3-4 weeks postop right in situ femoral popliteal bypass. He had had an open wound from a vein like branch ligation site in the right upper leg that was healing and doing well but apparently began to bleed profusely at his rehabilitation side tonight. He had a tourniquet placed prepped and transferred here. States his foot still feels well but complains of back and neck pain which is a chronic problem for him I have removed his tourniquet and restored flow into the vein graft and does not appear to be any active bleeding from the site. Vein graft continues to have a pulsatile flow distal to the site and the fourth tourniquet had been placed. Patient's vital signs at this point appear to be reasonably stable he is awake and talking appropriately. Home Medications Medication Instructions Recorded Confirmed Type Amlodipine Besylate 1 tablet PO DAILY 11/15/16 11/15/16 History cloNIDine HCl [Clonidine HCl] 1 tablet PO DAILY 11/15/16 11/15/16 History Albuterol/Ipratropium Neb [Duoneb] 3 ml RESP TX RT Q6H 11/22/16 Rx Aspirin Chew Tab 81 mg PO DAILY tablet 11/22/16 Rx Diazepam Tab [Valium Tab] 10 mg PO Q2H PRN tablet 11/22/16 Rx Docusate Sodium Cap [Colace Cap] 100 mg PO BID capsule 11/22/16 Rx Dutasteride [Avodart] 0.5 mg PO DAILY capsule 11/22/16 Rx FLUoxetine [PROzac] 40 mg PO DAILY capsule 11/22/16 Rx Lisinopril/Hctz 20-25 [Prinzide 1 tablet PO DAILY tablet 11/22/16 Rx 20-25] Potassium Chloride Cap/Tab [K Dur] 20 meq PO BID tablet 11/22/16 Rx Tamsulosin [Flomax] 0.4 mg PO BID capsule 11/22/16 Rx Zinc Oxide 16% Paste [Myra's 1 applic TOP BID applic 11/22/16 Rx Butt Paste] oxyCODONE/ACETAMINOPHEN 5-325 2 tablet PO Q6H PRN tablet 11/22/16 Rx [Percocet 5-325] Allergies Allergy/AdvReac Type Severity Reaction Status Date / Time Cephalosporins AdvReac Unknown/Unable Verified 12/19/16 01:21 to obtain Medical,Surgical,& Family Hx - Medical History Cardio: History of: Hypertension Psychological: History of: Anxiety Disorders, Depression HEENT: History of: Eye Problem ("drifting spots" in field of vision) Endocrine: History of: Dyslipidemia Respiratory: History of: COPD, Respiratory Problems (Spontaneous Pneumo when young (23 yr old)) Genitourinary: History of: Prostate Problems (BPH) Musculoskeletal: History of: Musculoskeletal Problems - Surgical History Abdominal Surgeries: Surgical HX of: Colonoscopy Orthopedic Surgeries: Surgical HX of;: Orthopedic Surgery (Avtar in right pinky, later removed) - Family History Family History: Reports;: Family Cancer (father, melanoma) - Social History Smoking Status: Never smoker Frequency of Alcohol Use: None Type of Drug Use: None Exam - Constitutional Vitals: Period Temp Pulse Resp BP Sys/Sarmiento Pulse Ox Last 24 Hr 98.7 F 90 17 144/77 100 General appearance: mild distress, under weight - Head Head exam: Present: normal inspection - ENT Mouth exam: Present: normal voice - Neck Neck exam: Present: normal inspection, other (No carotid bruits) - Respiratory Respiratory exam: Present: clear to auscultation bilaterally - Cardiovascular Cardiovascular exam: Present: RRR - GI/Abdominal GI/Abdominal exam: Present: normal bowel sounds, soft - Expanded Right Lower Hip exam: Present: deformity (Right upper leg shows recent surgeries appear to be healing well except the wound where the bleeding has occurred this is not actively bleeding I have not remove the dressing tonight I am able to palpate pulse in the femoral-popliteal graft his foot is warm has good motion and no deficit on his toes or foot. Has edema that has been present in the right lower leg as a expected part of his postsurgical situation.) Gait: Present: not tested/not observed
[2016-12-19] MEDS ORDERED: KETOROLAC 30 MG/1 ML VIAL IV STA (01:43)
[2016-12-19] MEDS ORDERED: VANCOMYCIN INJ 750 MG in SODIUM CHLORIDE 0.9% 250 ML IV SCH (02:00)
[2016-12-19] MEDS ORDERED: KETOROLAC 30 MG/1 ML VIAL ONE (02:10)
[2016-12-19 02:31] LABS: Basophils % 0.4 % (0.0-0.8); Eosinophils # 0.2 10*3/uL (0.0-0.87); Eosinophils % 1.9 % (0.00-10.9); Hematocrit 35.5 VOL% (42.0-52.0); Hemoglobin 12.5 GM/DL (14.0-18.0); Immature Granulocytes % 0.5 %; Immature Granulocytes Absolute 0.04 #; Lymphocytes # 1.9 10*3/uL (1.4-4.0); Lymphocytes % 21.9 % (21.2-54.2); Mean Corpuscular HGB Conc 35.2 GM/DL (32-36); Mean Corpuscular Hemoglobin 35 PG (27-34); Mean Corpuscular Volume 99.7 FL (87-102); Mean Platelet Volume 11.1 FL (9.6-12.0); Monocytes # 0.6 10*3/uL (0.11-0.8); Monocytes % 7.2 % (1.7-12.7); Neutrophils # 5.8 10*3/uL (1.4-7.4); Neutrophils % 68.1 % (38.7-73.9); Platelet Count 154 T/CUMM (130-400); Red Blood Count 3.56 MC/CUMM (3.8-5.5); Red Cell Distribution Width 17.2 % (9.3-17.3); White Blood Count 8.5 T/CUMM (4-12)
[2016-12-19 02:51] LABS: INR 1.1; PT Patient Result 11.5 SECS; Partial Thromboplastin Time 25.5 SECS (0-40)
[2016-12-19 03:02] LABS: Albumin 2.2 G/DL (3.4-5.0); Bilirubin,Total 0.6 MG/DL (0.2-1.0); Calcium 7.4 MG/DL (8.5-10.1); Osmolality,Calculated 287.1 MOS/KG (273-304); Potassium 3.5 MMOL/L (3.5-5.1); Total Protein 4.4 G/DL (6.4-8.3)
[2016-12-19] MEDS ORDERED: TISSUE ADHESIVE 1 EACH APPLICATOR TOP ONE (03:49)
--- NOTE | 2016-12-19 04:08 | Event Note ---
Mr. Wilson began bleeding again profusely on return to the floor became unresponsive code was called and not require intubation or CPR. Has been moved back to the ER and I will take him urgently to the operating room for control of the bleeding
[2016-12-19] MEDS ORDERED: BUPIVACAINE 0.5% 50 ML VIAL ONE (04:26)
[2016-12-19] MEDS ORDERED: THROMBIN TOPICAL (RECOMBINANT) 5,000 UNIT VIAL TOP ONE (04:26)
[2016-12-19] MEDS ORDERED: HEPARIN 5,000 UNIT/1 ML VIAL ONE (04:26)
[2016-12-19] MEDS ORDERED: VANCOMYCIN 500 MG VIAL ONE ×2 (04:26→04:49)
[2016-12-19] MEDS ORDERED: VANCOMYCIN 1,000 MG VIAL ONE (04:27)
[2016-12-19] MEDS ORDERED: ETOMIDATE 20 MG/10 ML VIAL IV ONE (04:37)
[2016-12-19] MEDS ORDERED: PROPOFOL 200 MG/20 ML VIAL IV ONE (04:37)
[2016-12-19] MEDS ORDERED: PHENYLEPHRINE 1 MG/10 ML SYRINGE IV ONE (04:37)
[2016-12-19] MEDS ORDERED: HEPARIN 10,000 UNIT/10 ML VIAL ONE (04:37)
[2016-12-19] MEDS ORDERED: LIDOCAINE 2% 5 ML VIAL ONE (04:37)
[2016-12-19] MEDS ORDERED: PHENYLEPHRINE 50 MG/5 ML VIAL ONE (04:37)
[2016-12-19] MEDS ORDERED: VANCOMYCIN INJ 1,000 MG in SODIUM CHLORIDE 0.9% 250 ML IV ONE (04:51)
--- NOTE | 2016-12-19 06:01 | EKG Report ---
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
--- NOTE | 2016-12-19 06:25 | Operative Note ---
Date of procedure: 12/19/16 Procedure: Dr. Stokes operative report Ilir Robbins. Surgeon: Parviz Anesthesia: Lubricants general LMA Preoperative diagnosis bleeding saphenous vein femoral-popliteal graft Postoperative diagnosis exposed bleeding saphenous vein femoral-popliteal graft Procedure: Control of bleeding and revision of saphenous vein femoral-popliteal graft with interposition 6 mm [place]-Saroj graft. Indications for the procedure Mr. Wilson is a 76-year-old man who approximately a month ago had a right femoral-popliteal bypass had an incision that had been used for branch ligation, open this is been healing and granulating but developed sudden severe bleeding during the night I have recommended exploration and repair as indicated I have explained the procedure and risks to Mr. Wilson he understands and agrees Description after the induction of LMA LMA anesthesia the patient's right leg was prepped with Betadine soap and solution Hibiclens Ioban was placed over the upper abdomen the foot was placed in isolation bag I explored the wound in the mid thigh and found that there was a portion of the saphenous vein graft that was uncovered from the granulation tissue and had active bleeding we were able to control with pressure just above this I attempted to suture repaired initially but the vein was disintegrating I therefore ligated the vein graft with 5-0 Prolene suture then felt that I could do an interposition graft of 6 mm [place]-Saroj between the 2 segments of the femoral-popliteal graft keeping it away from this open wound therefore tunnel exposed the vein graft above the knee and just below the groin incision tunnel between the 2 incisions with a 6 mm thin-walled [place]-Saroj graft. This was anastomosed end-to-side to the saphenous vein just above the knee with running 6 oh cortex under loupe magnification and I then ligated our then anastomosed it end-to-side to the vein graft just below the groin with 6-0 [place]-Saroj suture I had run a 3 [place] down the distal portion of the graft return was fresh clot and active arterial bleeding. Flow was established and was noted to be good by Doppler ligated the vein graft just proximal and distal to the anastomoses of the distal and proximal anastomosis respectively. Patient had received 5000 units of heparin and this was then reversed with 25 mg protamine I spent a bit of time holding pressure for control of bleeding at the anastomosis through the needle hole sites this was eventually achieved with Tisseel and Surgicel and protamine. The incisions were irrigated and closed with 3-0 Monocryl and skin clips the incision that have been previously opened that the bleeding site was left open and packed with Betadine soaked gauze. Acute blood loss is approximately 200 cc sponge needle aspirate counts correct patient was noted to have good pink foot at the completion of the procedure. Taken to recovery in guarded condition Surgeon / Physician: Joel Stokes Results - Labs CBC & BMP: 12/19/16 02:19 12/19/16 02:19 Discharge Plan - Discharge Medications No Action cloNIDine HCl [Clonidine HCl] 1 tablet PO DAILY Amlodipine Besylate 1 tablet PO DAILY Albuterol/Ipratropium Neb [Duoneb] 3 ml RESP TX RT Q6H Diazepam Tab [Valium Tab] 10 mg PO Q2H PRN tablet PRN Reason: Anxiety Docusate Sodium Cap [Colace Cap] 100 mg PO BID capsule FLUoxetine [PROzac] 40 mg PO DAILY capsule Lisinopril/Hctz 20-25 [Prinzide 20-25] 1 tablet PO DAILY tablet oxyCODONE/ACETAMINOPHEN 5-325 [Percocet 5-325] 2 tablet PO Q6H PRN tablet PRN Reason: Pain Moderate (4-7) Potassium Chloride Cap/Tab [K Dur] 20 meq PO BID tablet Zinc Oxide 16% Paste [Myra's Butt Paste] 1 applic TOP BID applic Aspirin Chew Tab 81 mg PO DAILY tablet Dutasteride [Avodart] 0.5 mg PO DAILY capsule Tamsulosin [Flomax] 0.4 mg PO BID capsule - Follow Up or Referral - Forms/Instructions
[2016-12-19] MEDS ORDERED: fentaNYL 100 MCG/2 ML VIAL ONE (06:57)
[2016-12-19] MEDS ORDERED: SEVOFLURANE 1 UNIT/15 MINUTE INH ONE (06:57)
[2016-12-19] MEDS ORDERED: ePHEDrine 50 MG/ML AMP ONE (06:58)
[2016-12-19] MEDS ORDERED: SODIUM CHLORIDE 0.9% 750 ML IV ONE (06:58)
[2016-12-19] MEDS ORDERED: MIDAZOLAM 2 MG/2 ML VIAL ONE (06:58)
[2016-12-19] MEDS ORDERED: SODIUM CHLORIDE 0.9% 3,000 ML IV ONE (06:58)
[2016-12-19] MEDS ORDERED: SODIUM CHLORIDE 0.9% 250 ML IV PRN (07:02)
[2016-12-19] MEDS ORDERED: ONDANSETRON 4 MG/2 ML VIAL ONE (07:23)
[2016-12-19] MEDS ORDERED: ONDANSETRON 4 MG/2 ML VIAL IV ONE (07:54)
[2016-12-19 08:01] LABS: Hematocrit 33.1 VOL% (42.0-52.0); Hemoglobin 11.3 GM/DL (14.0-18.0)
[2016-12-19] MEDS: ALBUTEROL/IPRATROPIUM 3 ML NEB RESP TX SCH ×3 (09:51→20:16)
[2016-12-19] MEDS: DUTASTERIDE 0.5 MG CAPSULE PO SCH (10:32)
[2016-12-19] MEDS: DOCUSATE SODIUM 100 MG CAPSULE PO SCH ×2 (10:32→22:07)
[2016-12-19] MEDS: PANTOPRAZOLE 40 MG TABLET PO SCH (10:32)
[2016-12-19] MEDS: ASPIRIN CHEW 81 MG TABLET PO SCH (10:32)
[2016-12-19] MEDS: FLUoxetine 20 MG CAPSULE PO SCH (10:32)
[2016-12-19] MEDS: POTASSIUM CHLORIDE 20 MEQ TABLET PO SCH ×2 (10:33→22:07)
[2016-12-19] MEDS: HYDROmorphone 2 MG/1 ML VIAL IV PRN (11:02)
[2016-12-19] MEDS: DIAZEPAM 5 MG TABLET PO PRN ×2 (12:53→22:07)
[2016-12-19] MEDS: ACETAMINOPHEN 325 MG TABLET PO PRN (12:54)
--- NOTE | 2016-12-19 13:18 | Event Note ---
Mr. Wilson is awake alert doing well except being bothered by delay by the Serrano catheter. I think I can safely remove it his right foot is warm with weakly palpable dorsalis pedis incisions look good with no active evidence of active bleeding. Going to plan for him to stay in CCU today and probably move upstairs tomorrow.
--- NOTE | 2016-12-19 15:08 | Anesthesia Post-Op ---
Anesthesia Post OP - Post Ansesthetic Evaluation Patient seen in post op: Yes Resp: within normal limits CV: within normal limits Mental: within normal limits Temp: within normal limits Bbjy-Gk-[id number]: within normal limits Nausea and Vomiting: within normal limits Pain: within normal limits
[2016-12-19 17:03] LABS: Hematocrit 33.6 VOL% (42.0-52.0)
[2016-12-19] MEDS: VANCOMYCIN INJ 750 MG in SODIUM CHLORIDE 0.9% 250 ML IV SCH (17:18)
[2016-12-20] MEDS: ALBUTEROL/IPRATROPIUM 3 ML NEB RESP TX SCH ×4 (00:38→18:54)
[2016-12-20 05:24] LABS: Basophils % 0.3 % (0.0-0.8); Eosinophils # 0.2 10*3/uL (0.0-0.87); Eosinophils % 1.5 % (0.00-10.9); Hematocrit 28.3 VOL% (42.0-52.0); Hemoglobin 10.1 GM/DL (14.0-18.0); Immature Granulocytes % 0.3 %; Immature Granulocytes Absolute 0.03 #; Lymphocytes # 1.6 10*3/uL (1.4-4.0); Mean Corpuscular HGB Conc 35.7 GM/DL (32-36); Mean Corpuscular Hemoglobin 33 PG (27-34); Mean Corpuscular Volume 91.6 FL (87-102); Mean Platelet Volume 12.2 FL (9.6-12.0); Monocytes # 0.4 10*3/uL (0.11-0.8); Monocytes % 4.1 % (1.7-12.7); Neutrophils # 7.5 10*3/uL (1.4-7.4); Neutrophils % 77.8 % (38.7-73.9); Platelet Count 114 T/CUMM (130-400); Red Blood Count 3.09 MC/CUMM (3.8-5.5); Red Cell Distribution Width 18.7 % (9.3-17.3); White Blood Count 9.7 T/CUMM (4-12)
[2016-12-20] MEDS: VANCOMYCIN INJ 750 MG in SODIUM CHLORIDE 0.9% 250 ML IV SCH ×2 (05:34→18:35)
[2016-12-20 05:58] LABS: Calcium 7.2 MG/DL (8.5-10.1); Magnesium 1.7 MG/DL (1.8-2.4); Osmolality,Calculated 284.1 MOS/KG (273-304); Potassium 3.4 MMOL/L (3.5-5.1)
[2016-12-20 06:16] LABS: Band Neutrophils 1 % (0-10); Eosinophils 2 % (0-10); Hypochromasia 1+; Lymphocytes 9 % (20-55); Platelet Estimate Decreased; Segmented Neutrophils 86 % (50-85); Total Cells Counted 100
[2016-12-20 06:17] LABS: Giant Platelets Few; Ovalocytes Slight
[2016-12-20] MEDS: PANTOPRAZOLE 40 MG TABLET PO SCH (09:33)
[2016-12-20] MEDS: FLUoxetine 20 MG CAPSULE PO SCH (09:33)
[2016-12-20] MEDS: DUTASTERIDE 0.5 MG CAPSULE PO SCH (09:33)
[2016-12-20] MEDS: ASPIRIN CHEW 81 MG TABLET PO SCH (09:34)
[2016-12-20] MEDS: DOCUSATE SODIUM 100 MG CAPSULE PO SCH ×2 (09:34→20:22)
[2016-12-20] MEDS: POTASSIUM CHLORIDE 20 MEQ TABLET PO SCH ×2 (09:34→20:21)
--- NOTE | 2016-12-20 09:38 | Event Note ---
Mr. Wilson is awake alert this morning and back to his normal complaints of pain in the foot and the leg and the back. Complaining the disc it is not on his breakfast I think he is back to himself. He has a palpable dorsalis pedis pulse the edema of the leg is expected he has got a bit of erythema in the thigh watch this a little extra carefully I am going to keep him on vancomycin over the weekend. Hematocrit is down to 28 but I doubt it will follow much further. I will move him upstairs and stop IV fluids today he was in the swing bed and [facility] but I am concerned about about referring him back over there over the weekend
--- NOTE | 2016-12-20 11:22 | Physician Query Form ---
CLICK EDIT DOCUMENT TO SELECT QUERY ANSWER --> OK --> SIGN Ana Brink RN Clinical Senior Insight Manager W) [phone] (f) [phone] [email or web address] PROVIDERS: Make your selection(s) from the choices in EACH section by typing an "x" and enter comments in the comment section. Please use your independent medical judgment in providing your response. This request does not imply that any particular answer is desired or expected. CLINICAL INDICATORS: (Providers should not edit this section) Based on documentation of "Acute Bleeding Femoral Popliteal Graft" "Bleeding again profusely. became unresponsive. code called" "Will take him urgent to the operating room for control of the bleeding. On 100% NRB. BP as low as 79/ 39. Transfused 4 units PRBC, and 2 units FFP. Please clarify which, if any, of the following is the etiology of the above symptoms and treatment rendered: ( ) Hypovolemic shock ( ) Septic shock ( ) Cardiogenic shock (x ) Hemorrhagic shock ( ) Traumatic shock ( ) Shock due to, please specify etiology: ( ) Shock, unknown etiology ( ) Drug induced, please specify substance: ( ) Iatrogenic Hypotension ( ) Orthostatic Hypotension ( ) Hypotension, unknown etiology ( ) Other, please specify: ( ) Clinically unable to determine COMMENTS: PLEASE ALSO DOCUMENT RESPONSE IN PROGRESS NOTES AND/OR DISCHARGE SUMMARY Use of terms such as suspected, likely, or probable (associated with a specific diagnosis that is being evaluated, monitored, or treated as if it exists) are acceptable and can be restated in the discharge summary if not ruled out. MTDD
--- NOTE | 2016-12-20 11:24 | Physician Query Form ---
CLICK EDIT DOCUMENT TO SELECT QUERY ANSWER --> OK --> SIGN Ana Brink RN Clinical Commercial Print Salesman W) [phone] (f) [phone] [email or web address] PROVIDERS: Make your selection(s) from the choices in EACH section by typing an "x" and enter comments in the comment section. Please use your independent medical judgment in providing your response. This request does not imply that any particular answer is desired or expected. CLINICAL INDICATORS: (Providers should not edit this section) Based on documentation of "Acute Bleeding Femoral Popliteal Graft" "Bleeding again profusely. became unresponsive. code called" "Will take him urgent to the operating room for control of the bleeding. Transfused 4 units PRBC, and 2 units FFP. Based on the above, could you clarify which of the following conditions you are evaluating, treating, and/or monitoring? ( ) Blood loss anemia ( x) acute ( ) chronic ( ) acute on chronic ( ) Acute blood loss anemia on baseline chronic anemia ( ) Acute blood loss anemia as a complication of a procedure ( ) Iron deficiency anemia not associated with blood loss ( ) Dilutional anemia due to IV fluids ( ) Hemolytic anemia ( ) immune ( ) non-immune - please specify cause: ( ) Anemia due to other condition, please specify: ( ) Clinically unable to determine COMMENTS: PLEASE ALSO DOCUMENT RESPONSE IN PROGRESS NOTES AND/OR DISCHARGE SUMMARY Use of terms such as suspected, likely, or probable (associated with a specific diagnosis that is being evaluated, monitored, or treated as if it exists) are acceptable and can be restated in the discharge summary if not ruled out. MTDD
[2016-12-20] MEDS: HYDROmorphone 2 MG/1 ML VIAL IV PRN (11:35)
[2016-12-20] MEDS: ONDANSETRON 4 MG/2 ML VIAL IV PRN ×2 (11:43→20:15)
[2016-12-20] MEDS: KETOROLAC 10 MG TABLET PO SCH ×2 (15:28→17:57)
[2016-12-20] MEDS: TAMSULOSIN 0.4 MG CAPSULE PO SCH ×2 (15:28→20:22)
[2016-12-20] MEDS: ZINC OXIDE 16% PASTE 57 GM TUBE TOP SCH ×2 (15:32→20:22)
[2016-12-21] MEDS: ALBUTEROL/IPRATROPIUM 3 ML NEB RESP TX SCH ×4 (00:33→18:52)
[2016-12-21] MEDS: KETOROLAC 10 MG TABLET PO SCH ×4 (00:57→17:54)
[2016-12-21 04:33] LABS: Basophils % 0.1 % (0.0-0.8); Eosinophils % 0.5 % (0.00-10.9); Hematocrit 25.5 VOL% (42.0-52.0); Hemoglobin 9.1 GM/DL (14.0-18.0); Immature Granulocytes % 0.7 %; Immature Granulocytes Absolute 0.06 #; Lymphocytes # 1.1 10*3/uL (1.4-4.0); Lymphocytes % 12.9 % (21.2-54.2); Mean Corpuscular HGB Conc 35.7 GM/DL (32-36); Mean Corpuscular Hemoglobin 32 PG (27-34); Mean Corpuscular Volume 90.4 FL (87-102); Mean Platelet Volume 12.2 FL (9.6-12.0); Monocytes # 0.4 10*3/uL (0.11-0.8); Monocytes % 5.1 % (1.7-12.7); Neutrophils # 6.7 10*3/uL (1.4-7.4); Neutrophils % 80.7 % (38.7-73.9); Platelet Count 116 T/CUMM (130-400); Red Blood Count 2.82 MC/CUMM (3.8-5.5); Red Cell Distribution Width 17.7 % (9.3-17.3); White Blood Count 8.3 T/CUMM (4-12)
[2016-12-21 05:15] LABS: Calcium 7.4 MG/DL (8.5-10.1); Magnesium 1.6 MG/DL (1.8-2.4); Osmolality,Calculated 276.5 MOS/KG (273-304); Potassium 3.7 MMOL/L (3.5-5.1)
[2016-12-21] MEDS: VANCOMYCIN INJ 750 MG in SODIUM CHLORIDE 0.9% 250 ML IV SCH ×2 (06:26→17:58)
[2016-12-21] MEDS: DOCUSATE SODIUM 100 MG CAPSULE PO SCH ×2 (10:47→20:05)
[2016-12-21] MEDS: ASPIRIN CHEW 81 MG TABLET PO SCH (10:47)
[2016-12-21] MEDS: POTASSIUM CHLORIDE 20 MEQ TABLET PO SCH ×2 (10:48→20:06)
[2016-12-21] MEDS: DUTASTERIDE 0.5 MG CAPSULE PO SCH (10:48)
[2016-12-21] MEDS: ZINC OXIDE 16% PASTE 57 GM TUBE TOP SCH ×2 (10:48→20:07)
[2016-12-21] MEDS: PANTOPRAZOLE 40 MG TABLET PO SCH (10:48)
[2016-12-21] MEDS: FLUoxetine 20 MG CAPSULE PO SCH (10:48)
[2016-12-21] MEDS: TAMSULOSIN 0.4 MG CAPSULE PO SCH ×2 (10:48→20:05)
[2016-12-21] MEDS: HYDROmorphone 2 MG/1 ML VIAL IV PRN (11:30)
[2016-12-21] MEDS: ONDANSETRON 4 MG/2 ML VIAL IV PRN ×2 (11:32→17:56)
--- NOTE | 2016-12-21 13:13 | Event Note ---
Afebrile vital signs stable. Foot is warm. He complains of some pain at the incisions. We will add Ophir to see if that helps with his pain. He is currently getting Dilaudid as needed. Open wound on his right inner thigh is clean. We will continue local wound care.
[2016-12-21] MEDS ORDERED: FUROSEMIDE 20 MG/2 ML VIAL IV ONE (16:59)
[2016-12-22] MEDS: KETOROLAC 10 MG TABLET PO SCH ×4 (00:28→18:00)
[2016-12-22] MEDS: ALBUTEROL/IPRATROPIUM 3 ML NEB RESP TX SCH ×4 (00:30→19:28)
[2016-12-22] MEDS: DIAZEPAM 5 MG TABLET PO PRN (00:30)
[2016-12-22] MEDS: VANCOMYCIN INJ 750 MG in SODIUM CHLORIDE 0.9% 250 ML IV SCH ×2 (06:48→18:01)
[2016-12-22] MEDS: POTASSIUM CHLORIDE 20 MEQ TABLET PO SCH ×2 (10:16→21:07)
[2016-12-22] MEDS: ASPIRIN CHEW 81 MG TABLET PO SCH (10:16)
[2016-12-22] MEDS: DUTASTERIDE 0.5 MG CAPSULE PO SCH (10:16)
[2016-12-22] MEDS: PANTOPRAZOLE 40 MG TABLET PO SCH (10:17)
[2016-12-22] MEDS: ZINC OXIDE 16% PASTE 57 GM TUBE TOP SCH ×2 (10:17→21:07)
[2016-12-22] MEDS: TAMSULOSIN 0.4 MG CAPSULE PO SCH ×2 (10:17→21:07)
[2016-12-22] MEDS: FLUoxetine 20 MG CAPSULE PO SCH (10:17)
[2016-12-22] MEDS: DOCUSATE SODIUM 100 MG CAPSULE PO SCH ×2 (10:17→21:07)
[2016-12-22] MEDS: HYDROmorphone 2 MG/1 ML VIAL IV PRN ×3 (11:12→21:02)
--- NOTE | 2016-12-22 11:13 | Event Note ---
Afebrile vital signs stable. Patient had some upper extremity edema and some shortness of breath yesterday. Lasix was given and this has improved. His main complaint is of pain from the ankle down on the right foot. His foot is warm and he has a palpable dorsalis pedis pulse. Right leg wound is clean and the incisions look good. He has had a bowel movement and his abdomen is nontender. Will consult pulmonary. He says the Dilaudid works but he has not been asking for it. He was instructed he can have it every 4 hours for his breakthrough pain.
--- NOTE | 2016-12-22 15:03 | Pulmonology Consult Note ---
History of Present Illness Chief complaint: Generalized edema. Pneumonia. CHF. History of present illness: Mr. Robbins is a 76 year old white male whom I been asked to see in pulmonary consultation for evaluation and treatment. The patient is in the hospital for lower extremity arterial surgery which is already been done. New complaint was some mild shortness of breath and generalized edema. Patient had been given to Lasix and the edema has improved somewhat. The patient does not seem particularly concerned about his edema. He denies any shortness of breath orthopnea. He denies any cardiac angina. He says he has never had any heart problems and he has never been a smoker. He does have a history of spontaneous pneumothorax is on the right and the left. Patient denies a cough and he denies sputum production. He has had no hemoptysis. Patient did say that he has to write things down in order to remember them. He was actively doing this before I came into the room and while I was talking to him Even though the patient denies any known pulmonary problems his home medicines suggest he has at least bronchospastic disease The remainder of the review of systems is negative. Allergies. Cephalosporins. Patient does not remember what symptoms he had. Home medicines. Norvasc 1 daily clonidine 1 daily nebulizer with duo nebs. Baby aspirin once a day. Valium 10 mg as needed. Colace 100 twice daily. Avodart 0.5 daily. Prozac 40 daily. KCl 20 mEq twice daily Flomax 0.4 mg twice daily. Hood's Butt paste. Percocet 5/325 Past history. High blood pressure. Depression. Hyperlipidemia. Bronchospastic disease. BPH. History of right and left spontaneous pneumothoraces. Social history. Never smoked. Lives in a snf. Denies drug use. 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 Note that a consult done 11/16/2016 said that this patient was sent every day smoker. Also said that he used alcohol frequently. Family history. His father had a melanoma. Chest x-ray. 12/22/2016. My interpretation. Normal size heart. Right upper lung infiltrate with air bronchograms and volume loss. Possible early infiltrate inferior and lateral to the right hilum. Bilateral pleural effusions greater on the left than the right. Bilateral apical capping. Lab. Natruretic peptide is elevated at 511. Electrolytes are normal. Creatinine is 0.5 with a BUN of 18. Calcium is low at 7.6. Magnesium is low at 1.6. Total protein and albumin are low at 4.4 and 2.2 respectively. Last H& H was 9.1/25.5. White count is 8300 with 81% segs and 19% lymphs INR is 1.1 Physical exam. Vital signs. See below. Onset of elevated temps 12/19/2016. Highest recorded temp was 100.4092 2016. O2 sat have varied between 90 and 99%. It appears that a 99% 98% with both on FiO2 28%. Psychiatric. Oriented 3. Pleasant and easy to talk to. Neurologic. Poor memory. Cranial nerves are intact. Patient moves all 4 extremities. Face. Symmetrical. No edema of the lips or tongue. Neck. Symmetrical kyphotic with no meningismus or masses. Thyroid was not palpated Lymphatics. No submandibular cervical supraclavicular or epitrochlear adenopathy. Chest. Fairly clear. Heart. Heart sounds are distant. I cannot hear murmur or gallop. Abdomen. Nontender. Edge of the liver feels normal. Bowel sounds are present. and rectal deferred Extremities. In the upper extremities patient has good bit of edema that localizes around the elbow areas and this may very well be positional. Lower extremities reveal +2/4 pedal and pretibial edema that extends at least to the tibial plateaus bilaterally. This has a spongy quality so we should consider the possibility that this is related to lisinopril. (MONTSE inhibitor) The remainder the physical exam is negative. Impression. 1. Acute right upper lung pneumonia. 2. Probable history of bronchospastic disease. 3. Congestive heart failure. 4. Significant bilateral lower extremity edema and edema about the elbows and both arms. Some of this could be due to his low proteins and albumin. Spongy quality of edema in the lower extremities could possibly be secondary to Procardia so consider possibility of stopping this. 5. Peripheral artery disease. Recent surgery. 6. High blood pressure 7. History of hyperlipidemia 8. BPH Plan. 1. Sputum for Gram stain culture and sensitive 3.Echocardiogram. 2. Follow-up chest x-ray 4. Cold agglutinins 5. Inhalation therapy 6. Lasix 20 IV push every 6 hours. He does not diuresis we could consider salt poor albumin 25 g IV piggyback followed by 20 mg of Lasix IV push immediately afterwards on a q. 8 hour basis 7. Consider stoppingACE inhibitor 8. Blood cultures #9. See orders per Home Medications Medication Instructions Recorded Confirmed Type Albuterol/Ipratropium Neb [Duoneb] 3 ml RESP TX RT Q6H 11/22/16 12/20/16 Rx Docusate Sodium Cap [Colace Cap] 100 mg PO BID capsule 11/22/16 12/20/16 Rx Dutasteride [Avodart] 0.5 mg PO DAILY capsule 11/22/16 12/20/16 Rx FLUoxetine [PROzac] 40 mg PO DAILY capsule 11/22/16 12/20/16 Rx Lisinopril/Hctz 20-25 [Prinzide 1 tablet PO DAILY tablet 11/22/16 12/20/16 Rx 20-25] Tamsulosin [Flomax] 0.4 mg PO BID capsule 11/22/16 12/20/16 Rx Zinc Oxide 16% Paste [Myra's 1 applic TOP BID applic 11/22/16 12/20/16 Rx Butt Paste] oxyCODONE/ACETAMINOPHEN 5-325 2 tablet PO Q6H PRN tablet 11/22/16 12/20/16 Rx [Percocet 5-325] Clopidogrel [Plavix] 75 mg PO DAILY 12/20/16 12/20/16 History Cyproheptadine Tab [Periactin Tab] 4 mg PO BEDTIME 12/20/16 12/20/16 History Gabapentin Cap/Tab [Neurontin 300 mg PO 12/20/16 12/20/16 History Cap/Tab] Gabapentin Cap/Tab [Neurontin 600 mg PO BEDTIME 12/20/16 12/20/16 History Cap/Tab] Ibuprofen 400 mg PO Q6H PRN 12/20/16 12/20/16 History Omeprazole [Prilosec] 20 mg PO DAILY 12/20/16 12/20/16 History Potassium Chloride 20 meq PO DAILY 12/20/16 12/20/16 History diazePAM [Valium] 10 mg PO Q12H PRN 12/20/16 12/20/16 History Allergies Allergy/AdvReac Type Severity Reaction Status Date / Time Cephalosporins AdvReac Unknown/Unable Verified 12/19/16 01:21 to obtain Exam (Pulmonay) H&P - Constitutional Vitals: Period Temp Pulse Resp BP Sys/Sarmiento Pulse Ox Last 24 Hr 98.1 F-100.4 F 85-108 17-21 107-162/60-84 78-99 Medical,Surgical,& Family Hx - Medical History Cardio: History of: Hypertension Psychological: History of: Anxiety Disorders, Depression HEENT: History of: Eye Problem ("drifting spots" in field of vision) Endocrine: History of: Dyslipidemia Respiratory: History of: COPD, Respiratory Problems (Spontaneous Pneumo when young (23 yr old)) Genitourinary: History of: Prostate Problems (BPH) Musculoskeletal: History of: Musculoskeletal Problems - Surgical History Cardiac Surgeries: Sugical HX of: Femoral-Popliteal Bypass Graft Patient Denies: Cardiac Catheterization Abdominal Surgeries: Surgical HX of: Colonoscopy Orthopedic Surgeries: Surgical HX of;: Orthopedic Surgery (Avtar in right pinky, later removed) - Family History Family History: Reports;: Family Cancer (father, melanoma) - Social History Smoking Status: Never smoker Frequency of Alcohol Use: None Type of Drug Use: None Results - Labs CBC & BMP: 12/21/16 03:08 12/21/16 03:08 Quality Measures - VTE Contraindication to Pharmacological VTE Prophylaxis: High Risk of Bleeding Specialty Discharge - Follow Up or Referrals Follow up with: Joel Stokes MD [Physician] -
[2016-12-22] MEDS: LEVOFLOXACIN INJ 500 MG in PREMIX 1 EACH IV SCH (15:15)
[2016-12-22] MEDS: FUROSEMIDE 20 MG/2 ML VIAL IV SCH (15:17)
--- NOTE | 2016-12-22 16:37 | XRay Report ---
Portable chest December 22, 2016 Indication: Pre-op Comparison images November 19, 2016 Findings: The mediastinal contours are normal. Increased perihilar interstitial prominence. Developed right upper lobe consolidation with parenchymal and pleural densities within the right lung base. Trace left pleural effusion. Stable small hiatal hernia Impression: Development of right upper and lower lobe pneumonia with bilateral pleural effusions, right greater than left PROCEDURE INTERPRETED AT [facility] DEPARTMENT OF RADIOLOGY Final Report Signed by: Brennen Singh
[2016-12-23] MEDS: ALBUTEROL/IPRATROPIUM 3 ML NEB RESP TX SCH ×4 (00:29→19:36)
[2016-12-23] MEDS: FUROSEMIDE 20 MG/2 ML VIAL IV SCH ×3 (00:44→15:56)
[2016-12-23] MEDS: KETOROLAC 10 MG TABLET PO SCH ×4 (01:13→18:10)
[2016-12-23] MEDS: HYDROmorphone 2 MG/1 ML VIAL IV PRN ×4 (02:59→21:00)
[2016-12-23 03:52] LABS: Calcium 7.6 MG/DL (8.5-10.1); Magnesium 1.6 MG/DL (1.8-2.4); Osmolality,Calculated 277.8 MOS/KG (273-304); Potassium 3.4 MMOL/L (3.5-5.1)
[2016-12-23] MEDS: VANCOMYCIN INJ 750 MG in SODIUM CHLORIDE 0.9% 250 ML IV SCH ×2 (05:55→19:13)
[2016-12-23] MEDS: DOCUSATE SODIUM 100 MG CAPSULE PO SCH ×2 (08:53→21:00)
[2016-12-23] MEDS: ASPIRIN CHEW 81 MG TABLET PO SCH (08:53)
[2016-12-23] MEDS: DUTASTERIDE 0.5 MG CAPSULE PO SCH (08:53)
[2016-12-23] MEDS: TAMSULOSIN 0.4 MG CAPSULE PO SCH ×2 (08:54→21:00)
[2016-12-23] MEDS: POTASSIUM CHLORIDE 20 MEQ TABLET PO SCH ×2 (08:54→21:00)
[2016-12-23] MEDS: PANTOPRAZOLE 40 MG TABLET PO SCH (08:54)
[2016-12-23] MEDS: FLUoxetine 20 MG CAPSULE PO SCH (08:55)
--- NOTE | 2016-12-23 09:35 | Event Note ---
Pt is POD #4. Pain persistent in RLE but improved. Continues on vancomycin per Dr. Stokes and levafloxacin added per Dr. Tran. Afebrible overnight. Tolerating oral intake. No additional complaints. VSS RLE: surgical incisions c/d/i; open wound of medial thigh with viable tissue present - no evidence of drainage, necrosis, erythema or malodor. Extremity is warm distally with cap refill of toes >4 sec; DP palpable. RLE edema 1+. Labs reviewed. A/P POD #4. Stable. Continue IV abx and local wound care. Check venous doppler. Pt with RUL PNA and CHF exacerbation - management per Dr. Tran.
--- NOTE | 2016-12-23 10:06 | XRay Report ---
Portable chest December 23, 2016 at 0607 hours Indication: Difficulty breathing Comparison images from previous day at 1154 hours Findings: Perihilar and right upper lobe consolidations are relatively unchanged in the interim. Slight worsening of the volume loss and pleural effusion obscuring the right hemidiaphragm. Left pleural effusion is relatively stable. No acute osseous abnormalities. Impression: Stable perihilar and right upper lobe consolidations with progressed right basilar volume loss and pleural effusion PROCEDURE INTERPRETED AT [facility] [place] DEPARTMENT OF RADIOLOGY Final Report Signed by: Brennen Singh
--- NOTE | 2016-12-23 11:04 | Ultrasound Report ---
Exam: US venous doppler LE RT Indication: Swelling and pain Date: 12/23/2016 9:31 AM Findings: The right common femoral, superficial femoral, popliteal and proximal saphenous saphenous veins are patent with normal waveform phasicity and augmentation as well as complete vessel compressibility. There is no evidence of popliteal or Ramirez's cyst. Impression: No evidence of deep venous thrombosis within right lower extremity Ultrasound images were captured and stored. PROCEDURE INTERPRETED AT [facility] DEPARTMENT OF RADIOLOGY Final Report Signed by: Brennen Singh
--- NOTE | 2016-12-23 13:09 | Pulmonology Progress Note ---
Pulmonary - PN: Subj Interval history: This is a 76-year-old white male whom I saw in pulmonary consultation on 2016. This man has a very poor memory. My impressions were. 1. Acute right upper lung pneumonia. 2. Probable history of bronchospastic disease. 3. Congestive heart failure. 4. Significant bilateral lower extremity edema and edema about the elbows and both arms. Some of this could be due to his low proteins and albumin. Spongy quality of edema in the lower extremities could possibly be secondary to Procardia so consider possibility of stopping this. 5. Peripheral artery disease. Recent surgery. 6. High blood pressure 7. History of hyperlipidemia 8. BPH 12/23/2016. Doppler venograms are negative for deep venous thrombophlebitis.Today 's chest x-ray shows the right upper lung infiltrate is smaller than before. It is alveolar in character and has air bronchograms. There is a pleural effusion at the right costophrenic angle. This involves the major fissure. There is slight blunting of the left costophrenic angle. There is apparent bilateral perihilar fullness. There is a background of interstitial scarring and this is a portable film. I think we are dealing with a right upper lung pneumonia and a right-sided pleural effusion. I think the patient's congestive heart failure for all practical purposes is resolved. Natruretic peptide is dropped to 308. Sodium is 134. Potassium 3.4. Creatinine is 0.7 with a BUN of 20. T4 is low normal range. Last H&H was 9.1/25.5. I have ordered repeat lab. We will repeat his chest x-ray tomorrow. Also repeat lab Physical exam. Vital signs. Low-grade fever. Psychiatric. He is alert. His memory is almost nonexistent. Face is symmetrical. There is no edema of the lips or tongue. Neck. Symmetrical. No meningismus. Chest. Surprisingly clear. Heart. Distant heart sounds Abdomen. Nontender. Bowel sounds are present Extremities. Patient has +2/4 right lower extremity edema that extends to the tibial plateau. There is been venous harvesting on the side. Edema previously noted on the left side has resolved. Patient does have sacral edema and he has edema about both elbows. Plan. 12/22/2016 1. Sputum for Gram stain culture and sensitive 3.Echocardiogram. 2. Follow-up chest x-ray 4. Cold agglutinins 5. Inhalation therapy 6. Lasix 20 IV push every 8 hours. He does not diuresis we could consider salt poor albumin 25 g IV piggyback followed by 20 mg of Lasix IV push immediately afterwards on a q. 8 hour basis 7. Consider stoppingACE inhibitor 8. Blood cultures #9. See orders per. 12/23/2016. 1. Hold Lasix 20 IV push every 8 hours. Watch renal status closely. 2. Edema in the left leg has resolved. Edema remains in right leg. Both elbows are edematous. Chest x-ray is better 3. Anemia. 4. Dementia. 5. Cultures pending 6. Chest x-ray and lab ordered for tomorrow Exam (Progress Note) - Constitutional Vitals: Period Temp Pulse Resp BP Sys/Sarmiento Pulse Ox Last 24 Hr 97.2 F-99.7 F 86-108 18-20 99-137/59-96 88-99 Results - Labs CBC & BMP: 12/21/16 03:08 12/23/16 02:50 Specialty Discharge - Follow Up or Referrals Follow up with: Joel Stokes MD [Physician] -
[2016-12-23 14:11] LABS: Basophils % 0.3 % (0.0-0.8); Eosinophils # 0.3 10*3/uL (0.0-0.87); Hematocrit 25.7 VOL% (42.0-52.0); Hemoglobin 9.2 GM/DL (14.0-18.0); Immature Granulocytes % 0.3 %; Immature Granulocytes Absolute 0.02 #; Lymphocytes # 1.2 10*3/uL (1.4-4.0); Mean Corpuscular HGB Conc 35.8 GM/DL (32-36); Mean Corpuscular Hemoglobin 33 PG (27-34); Mean Corpuscular Volume 91.5 FL (87-102); Mean Platelet Volume 11.2 FL (9.6-12.0); Monocytes # 0.5 10*3/uL (0.11-0.8); Monocytes % 7.9 % (1.7-12.7); Neutrophils # 4.5 10*3/uL (1.4-7.4); Neutrophils % 69.5 % (38.7-73.9); Platelet Count 185 T/CUMM (130-400); Red Blood Count 2.81 MC/CUMM (3.8-5.5); Red Cell Distribution Width 16.4 % (9.3-17.3); White Blood Count 6.5 T/CUMM (4-12)
--- NOTE | 2016-12-23 14:39 | ECHO Report ---
Gamal Robbins Exam Date: 12/22/2016 15:29 Referring Physician: Technologist: Nereyda Plata Age: 76 Ht (in): 72 Wt (lb): 151 Gender: M Exam Location: [facility] Echo Indications: CHF, generalized edema, pneumonia BP: 125 / 80 HR: 98 Rhythm: Sinus Technical Quality: Technically difficult study IMPRESSIONS This study is technically limited. Left ventricular ejection fraction is estimated at 55-60 %. Grade II/IV diastolic dysfunction, moderately elevated filling pressures. The left atrium is mildly enlarged. Moderately thickened and calcified mitral valve with trace -mild mitral regurgitation. Mild aortic valve sclerosis without stenosis or regurgitation. Trace to mild tricuspid valve regurgitation. MEASUREMENTS (Male / Female) Normal Values 2D ECHO LV Diastolic Diameter PLAX 4.0 cm 4.2 - 5.9 / 3.9 - 5.3 cm LV Systolic Diameter PLAX 1.8 cm LV Fractional Shortening PLAX 54.7 % IVS Diastolic Thickness 1.0 cm 0.6 - 1.0 / 0.6 - 0.9 cm LVPW Diastolic Thickness 1.0 cm 0.6 - 1.0 / 0.6 - 0.9 cm Aortic Root Diameter 2.0 cm LA Systolic Diameter LX 4.2 cm 3.0 - 4.0 / 2.7 - 3.8 cm DOPPLER TR Peak Velocity 250.0 cm/s TR Peak Gradient 25.0 mmHg FINDINGS Left Ventricle Normal left ventricular cavity size. Grade II/IV diastolic dysfunction, moderately elevated filling pressures. Left ventricular ejection fraction is estimated at 55-60 %. Right Ventricle Grossly normal right ventricular size. Right Atrium Grossly normal right atrial size. Left Atrium The left atrium is mildly enlarged. Mitral Valve Moderately thickened and calcified mitral valve with trace -mild mitral regurgitation. Aortic Valve Mild aortic valve sclerosis without stenosis or regurgitation. Tricuspid Valve Morphologically normal tricuspid valve. Trace to mild tricuspid valve regurgitation. Tricuspid regurgitation velocities suggest a PAP of 25.0 mmHg + RAP. Pulmonic Valve Pulmonic valve not well visualized. Pericardium No pericardial effusion. Aorta Normal size aortic root and proximal ascending aorta. Darwin Junior (Electronically Signed) Final Date: 23 December 2016 14:38
[2016-12-23] MEDS: LEVOFLOXACIN INJ 500 MG in PREMIX 1 EACH IV SCH (16:00)
[2016-12-23] MEDS: ZINC OXIDE 16% PASTE 57 GM TUBE TOP SCH ×2 (16:08→21:00)
[2016-12-24] MEDS: FUROSEMIDE 20 MG/2 ML VIAL IV SCH ×3 (00:18→15:01)
[2016-12-24] MEDS: KETOROLAC 10 MG TABLET PO SCH ×4 (00:25→18:42)
[2016-12-24] MEDS: ALBUTEROL/IPRATROPIUM 3 ML NEB RESP TX SCH ×4 (01:58→19:22)
[2016-12-24] MEDS: HYDROmorphone 2 MG/1 ML VIAL IV PRN ×3 (02:01→20:04)
[2016-12-24] MEDS: HYDROcod/ACETAMIN 7.5-325 MG/15 ML UDCUP PO PRN ×2 (05:15→14:57)
[2016-12-24] MEDS: VANCOMYCIN INJ 750 MG in SODIUM CHLORIDE 0.9% 250 ML IV SCH ×2 (06:03→18:43)
[2016-12-24 06:52] LABS: Basophils % 0.4 % (0.0-0.8); Eosinophils # 0.3 10*3/uL (0.0-0.87); Eosinophils % 3.7 % (0.00-10.9); Hematocrit 26.9 VOL% (42.0-52.0); Hemoglobin 9.6 GM/DL (14.0-18.0); Immature Granulocytes % 0.4 %; Immature Granulocytes Absolute 0.03 #; Lymphocytes # 1.2 10*3/uL (1.4-4.0); Lymphocytes % 16.5 % (21.2-54.2); Mean Corpuscular HGB Conc 35.7 GM/DL (32-36); Mean Corpuscular Hemoglobin 33 PG (27-34); Mean Corpuscular Volume 91.5 FL (87-102); Mean Platelet Volume 11.3 FL (9.6-12.0); Monocytes # 0.6 10*3/uL (0.11-0.8); Monocytes % 7.8 % (1.7-12.7); Neutrophils % 71.2 % (38.7-73.9); Platelet Count 243 T/CUMM (130-400); Red Blood Count 2.94 MC/CUMM (3.8-5.5); Red Cell Distribution Width 16.3 % (9.3-17.3)
[2016-12-24 07:23] LABS: Calcium 7.8 MG/DL (8.5-10.1); Magnesium 1.5 MG/DL (1.8-2.4); Potassium 3.3 MMOL/L (3.5-5.1)
[2016-12-24] MEDS: DUTASTERIDE 0.5 MG CAPSULE PO SCH (08:26)
[2016-12-24] MEDS: POTASSIUM CHLORIDE 20 MEQ TABLET PO SCH ×3 (08:26→20:11)
[2016-12-24] MEDS: PANTOPRAZOLE 40 MG TABLET PO SCH (08:27)
[2016-12-24] MEDS: FLUoxetine 20 MG CAPSULE PO SCH (08:27)
[2016-12-24] MEDS: ASPIRIN CHEW 81 MG TABLET PO SCH (08:27)
[2016-12-24] MEDS: DOCUSATE SODIUM 100 MG CAPSULE PO SCH ×2 (08:27→20:11)
[2016-12-24] MEDS: TAMSULOSIN 0.4 MG CAPSULE PO SCH ×2 (08:27→20:11)
--- NOTE | 2016-12-24 08:30 | XRay Report ---
Exam: XR chest 1V portable Date: 12/24/2016 4:00 AM Indication: Shortness of breath Comparison: 12/23/2016 Technical: AP Findings: Low volume effusions are present. Persistent infiltrate present in the right upper middle and lower lobe and left infrahilar and basal region. Bony structures are intact. The heart is normal in size. ASVD is present. The heart is normal in size. Mediastinum is intact Impression: 1. Low volume effusions with interstitial alveolar edema and infiltrates present in the right upper middle and lower lobe and left infrahilar and basilar regions PROCEDURE INTERPRETED AT [facility] DEPARTMENT OF RADIOLOGY Final Report Signed by: Dr. Angel Aburto
[2016-12-24] MEDS: ZINC OXIDE 16% PASTE 57 GM TUBE TOP SCH (11:36)
--- NOTE | 2016-12-24 12:32 | Event Note ---
Mr. Wilson continues to be a challenging patient. He is complaining bitterly of pain in his right foot prior to admission he had had pain in the right foot since prior to his femoral-popliteal bypass and he may have a reflex sympathetic dystrophy. He is also complained of fairly severe pain of the neck and the lower back prior to admission. I had started Neurontin before he was admitted but he does not feel it has provided any improvement in his pain he is requesting Dilaudid every 4 hours routinely and watching the clock to be sure he gets it. I have tried to encourage him about not using the stronger narcotics and I am going to ask pain management to come work with him to see what kind of plan we can come up with and get away from this degree of narcotic usage. He has also developed scrotal edema and his Serrano catheter is in place not sure that was replaced yesterday are stated and over the weekend he requested it due to urinary retention. He had seen Dr. Bashir during his prior admission been placed on Avodart which he is continuing but I will ask Dr. Bashir to see him again and so hopefully we can get the Serrano catheter out and get the scrotal edema down. He has developed apparently a right-sided pneumonia and pleural effusions Dr. Edwards is managing that he is currently on Levaquin for that. He had had a blood culture drawn on 12 22 that was reported as positive for gram-positive cocci but it appears that our initial reading is negative for staph or MRSA. I had put him on vancomycin at the time of his admission and surgery for coverage of the wounds these are actually looking clean and dry with no sign of infection he really does not appear to have any infection of the open wound that he came into the hospital with. I will continue the vancomycin for the time being and he is currently on Levaquin as well. There is no reason for him not to be up and out of the bed moving about and moving back toward going toward his swing bed at [place] but [place] where he has been staying.
--- NOTE | 2016-12-24 13:26 | Urology Consultation ---
History of Present Illness - Data of Consult Consult date: 12/24/16 - Consult Narrative History of present illness: Mr. Robbins is a 76 year old male This 76-year-old white male is known to me. He has a history of BPH and is been on Avodart and Flomax twice a day. He has recently developed some edema in his penis and scrotum I am going to recommend we keep the scrotum elevated. I will remove the Serrano tomorrow for trial of voiding and will start intermittent catheterization as needed CC: Joel Stokes MD - Home Medications and Allergies Home Medications: Home Medications Medication Instructions Recorded Confirmed Type Albuterol/Ipratropium Neb [Duoneb] 3 ml RESP TX RT Q6H 11/22/16 12/20/16 Rx Docusate Sodium Cap [Colace Cap] 100 mg PO BID capsule 11/22/16 12/20/16 Rx Dutasteride [Avodart] 0.5 mg PO DAILY capsule 11/22/16 12/20/16 Rx FLUoxetine [PROzac] 40 mg PO DAILY capsule 11/22/16 12/20/16 Rx Lisinopril/Hctz 20-25 [Prinzide 1 tablet PO DAILY tablet 11/22/16 12/20/16 Rx 20-25] Tamsulosin [Flomax] 0.4 mg PO BID capsule 11/22/16 12/20/16 Rx Zinc Oxide 16% Paste [Myra's 1 applic TOP BID applic 11/22/16 12/20/16 Rx Butt Paste] oxyCODONE/ACETAMINOPHEN 5-325 2 tablet PO Q6H PRN tablet 11/22/16 12/20/16 Rx [Percocet 5-325] Clopidogrel [Plavix] 75 mg PO DAILY 12/20/16 12/20/16 History Cyproheptadine Tab [Periactin Tab] 4 mg PO BEDTIME 12/20/16 12/20/16 History Gabapentin Cap/Tab [Neurontin 300 mg PO 12/20/16 12/20/16 History Cap/Tab] Gabapentin Cap/Tab [Neurontin 600 mg PO BEDTIME 12/20/16 12/20/16 History Cap/Tab] Ibuprofen 400 mg PO Q6H PRN 12/20/16 12/20/16 History Omeprazole [Prilosec] 20 mg PO DAILY 12/20/16 12/20/16 History Potassium Chloride 20 meq PO DAILY 12/20/16 12/20/16 History diazePAM [Valium] 10 mg PO Q12H PRN 12/20/16 12/20/16 History Allergies/Adverse Reactions: Allergies Allergy/AdvReac Type Severity Reaction Status Date / Time Cephalosporins AdvReac Unknown/Unable Verified 12/19/16 01:21 to obtain Medical,Surgical,& Family Hx - Medical History Cardio: History of: Hypertension Psychological: History of: Anxiety Disorders, Depression HEENT: History of: Eye Problem ("drifting spots" in field of vision) Endocrine: History of: Dyslipidemia Respiratory: History of: COPD, Respiratory Problems (Spontaneous Pneumo when young (23 yr old)) Genitourinary: History of: Prostate Problems (BPH) Musculoskeletal: History of: Musculoskeletal Problems - Surgical History Cardiac Surgeries: Sugical HX of: Femoral-Popliteal Bypass Graft Patient Denies: Cardiac Catheterization Abdominal Surgeries: Surgical HX of: Colonoscopy Orthopedic Surgeries: Surgical HX of;: Orthopedic Surgery (Avtar in right pinky, later removed) - Family History Family History: Reports;: Family Cancer (father, melanoma) - Social History Smoking Status: Never smoker Frequency of Alcohol Use: None Type of Drug Use: None Exam - Constitutional Vitals: Period Temp Pulse Resp BP Sys/Sarmiento Pulse Ox Last 24 Hr 97.5 F-100.6 F 86-106 18-20 95-151/51-94 91-98 Results - Labs CBC & BMP: 12/24/16 05:53 12/24/16 05:53 Specialty Discharge - Follow Up or Referrals Follow up with: Joel Stokes MD [Physician] -
--- NOTE | 2016-12-24 13:58 | Ultrasound Report ---
Indication: Edema Duplex scan of the left lower extremity veins Technique: Duplex scan of the left lower extremity veins using B-mode/grayscale imaging and Doppler spectral analysis and color flow Findings: Major venous structures of the left lower extremity demonstrate a normal course and caliber. There is no evidence of deep vein thrombosis. No abnormal intrinsic echogenic lesions are demonstrated in the scanned blood vessels. Veins demonstrate good compressibility with normal color flow study and spectral analysis. Impression: Unremarkable duplex imaging of the left lower extremity veins. No evidence of DVT PROCEDURE INTERPRETED AT [facility] DEPARTMENT OF RADIOLOGY Final Report Signed by: Thierno Bolden
--- NOTE | 2016-12-24 14:15 | Pulmonology Progress Note ---
Pulmonary - PN: Subj Interval history: Dukejudy Lakhani, AGNP-, acting as scribe for Dr. Angel Tran This is a 76-year-old white male who we saw in pulmonary consultation on 2016. This man has a very poor memory. At the time of our initial consultation, our impressions were: 1. Acute right upper lung pneumonia. 2. Probable history of bronchospastic disease. 3. Congestive heart failure. 4. Significant bilateral lower extremity edema and edema about the elbows and both arms. Some of this could be due to his low proteins and albumin. Spongy quality of edema in the lower extremities could possibly be secondary to Procardia so consider possibility of stopping this. 5. Peripheral artery disease. Recent surgery. 6. High blood pressure 7. History of hyperlipidemia 8. BPH 12/23/2016. Doppler venograms are negative for deep venous thrombophlebitis.Today 's chest x-ray shows the right upper lung infiltrate is smaller than before. It is alveolar in character and has air bronchograms. There is a pleural effusion at the right costophrenic angle. This involves the major fissure. There is slight blunting of the left costophrenic angle. There is apparent bilateral perihilar fullness. There is a background of interstitial scarring and this is a portable film. I think we are dealing with a right upper lung pneumonia and a right-sided pleural effusion. I think the patient's congestive heart failure for all practical purposes is resolved. Natruretic peptide is dropped to 308. Sodium is 134. Potassium 3.4. Creatinine is 0.7 with a BUN of 20. T4 is low normal range. Last H&H was 9.1/25.5. I have ordered repeat lab. We will repeat his chest x-ray tomorrow. Also repeat lab. 12/24/2016. Patient's chest x-ray is stable today. Patient's memory appears better today. He states yesterday "was really bad day". Upon further questioning today, he states that he does have a history of tobacco use. When asked when he quit, he states "approximately 30 days ago". He also confirms reflux. He has difficulty swallowing as well. He states he has to have his main ground up, but most of this is secondary to "bad teeth". He previously had a Doppler of the right lower extremity, but left lower extremity was not done. We will obtain Doppler of the left lower extremity for completeness. He does have edema on the left as well. BNP has fallen to 198. He is on Lasix 20 mg IV every 8 hours. Sputum for Gram stain, culture and sensitivity has been ordered, however, thus far has not been collected. MRSA screen of the nares is positive. We have started Bactroban today. 1 of 2 blood cultures obtained at admission is growing a gram-positive cocci. It is possible that this is a contaminant. Final ID and sensitivities are pending. Cold agglutinins are negative. Medications have been reviewed. Labs been reviewed. White count is 7000 with 71.2% segs; H&H 9.6/26.9; platelet count 243,000; creatinine 0.60, BUN 15, sodium 136, potassium 3.3 ( hypokalemia); magnesium 1.5 (hypomagnesemia); BNP 198 Exam (Progress Note) - Constitutional Vitals: Period Temp Pulse Resp BP Sys/Sarmiento Pulse Ox Last 24 Hr 97.5 F-100.6 F 86-106 18-20 95-151/51-94 91-100 Exam: Chest is clear Heart with distant sounds Abdomen is nontender and nondistended; bowel sounds are positive 4 Extremities see above Psychiatric alert with improved memory today Neurologic unchanged Plan: Doppler venogram of the left lower extremity today. Echocardiogram. Increase potassium to 3 times daily. Start Slow-Mag 64 mg twice daily. Follow- up labs and x-rays. See orders. Results - Labs CBC & BMP: 12/24/16 05:53 12/24/16 05:53 Specialty Discharge - Follow Up or Referrals Follow up with: Joel Stokes MD [Physician] -
[2016-12-24] MEDS: MAGNESIUM CHLORIDE 64 MG TABLET PO SCH ×2 (14:59→20:10)
[2016-12-24] MEDS: LEVOFLOXACIN INJ 500 MG in PREMIX 1 EACH IV SCH (15:07)
--- NOTE | 2016-12-24 16:18 | Pain Management Consult Note ---
Assessment and Plan (1) Leg pain, diffuse Status: Acute Assessment and plan: Pain is not radicular in nature and his LBP is not currently an issue. Concerned about tourniquets and ensuing neuropathic pain. Good pulses and color in the right foot makes ischemic pain less likely. Will add Lyrica to IV Dilaudid, he is reluctant to come off this for oral percocet at this time. Was using hydrocodone outpatient prior to his fem pop, although [employer] prescription monitoring does not indicate his Rx source. Offered lumbar sympathetic block tomorrow noon if no response to Lyrica, he agrees. Not on blood thinners, anemic from recent bleeding episode, coags normal. Current Visit: Yes History of Present Illness Chief complaint: right foot and leg pain History of present illness: Mr. Robbins is a 76 year old male post right fem pop with venous graft bleed requiring tiurnaquit, now stable with good pulses, right pneumonia resolving, chronic opioids for LBP and tooth pain. Pain is burning stinging with swelling, also some in his left foot. Able to move all muscles in leg and foot, was bending over to the floor in the room when I came in and no obvious back pain. Home Medications Medication Instructions Recorded Confirmed Type Albuterol/Ipratropium Neb [Duoneb] 3 ml RESP TX RT Q6H 11/22/16 12/20/16 Rx Docusate Sodium Cap [Colace Cap] 100 mg PO BID capsule 11/22/16 12/20/16 Rx Dutasteride [Avodart] 0.5 mg PO DAILY capsule 11/22/16 12/20/16 Rx FLUoxetine [PROzac] 40 mg PO DAILY capsule 11/22/16 12/20/16 Rx Lisinopril/Hctz 20-25 [Prinzide 1 tablet PO DAILY tablet 11/22/16 12/20/16 Rx 20-25] Tamsulosin [Flomax] 0.4 mg PO BID capsule 11/22/16 12/20/16 Rx Zinc Oxide 16% Paste [Myra's 1 applic TOP BID applic 11/22/16 12/20/16 Rx Butt Paste] oxyCODONE/ACETAMINOPHEN 5-325 2 tablet PO Q6H PRN tablet 11/22/16 12/20/16 Rx [Percocet 5-325] Clopidogrel [Plavix] 75 mg PO DAILY 12/20/16 12/20/16 History Cyproheptadine Tab [Periactin Tab] 4 mg PO BEDTIME 12/20/16 12/20/16 History Gabapentin Cap/Tab [Neurontin 300 mg PO 12/20/16 12/20/16 History Cap/Tab] Gabapentin Cap/Tab [Neurontin 600 mg PO BEDTIME 12/20/16 12/20/16 History Cap/Tab] Ibuprofen 400 mg PO Q6H PRN 12/20/16 12/20/16 History Omeprazole [Prilosec] 20 mg PO DAILY 12/20/16 12/20/16 History Potassium Chloride 20 meq PO DAILY 12/20/16 12/20/16 History diazePAM [Valium] 10 mg PO Q12H PRN 12/20/16 12/20/16 History Allergies Allergy/AdvReac Type Severity Reaction Status Date / Time Cephalosporins AdvReac Unknown/Unable Verified 12/19/16 01:21 to obtain Medical,Surgical,& Family Hx - Medical History Cardio: History of: Hypertension Psychological: History of: Anxiety Disorders, Depression HEENT: History of: Eye Problem ("drifting spots" in field of vision) Endocrine: History of: Dyslipidemia Respiratory: History of: COPD, Respiratory Problems (Spontaneous Pneumo when young (23 yr old)) Genitourinary: History of: Prostate Problems (BPH) Musculoskeletal: History of: Musculoskeletal Problems - Surgical History Cardiac Surgeries: Sugical HX of: Femoral-Popliteal Bypass Graft Patient Denies: Cardiac Catheterization Abdominal Surgeries: Surgical HX of: Colonoscopy Orthopedic Surgeries: Surgical HX of;: Orthopedic Surgery (Avtar in right pinky, later removed) - Family History Family History: Reports;: Family Cancer (father, melanoma) - Social History Smoking Status: Never smoker Frequency of Alcohol Use: None Type of Drug Use: None Quality Measures - VTE Contraindication to Pharmacological VTE Prophylaxis: High Risk of Bleeding Exam - Constitutional Vitals: Period Temp Pulse Resp BP Sys/Sarmiento Pulse Ox Last 24 Hr 97.5 F-100.6 F 86-106 18-20 95-151/51-94 91-100 Results - Labs CBC & BMP: 12/24/16 05:53 12/24/16 05:53 Specialty Discharge - Follow Up or Referrals Follow up with: Joel Stokes MD [Physician] -
[2016-12-24] MEDS: MUPIROCIN 2% OINT 22 GM TUBE TOP SCH (16:29)
[2016-12-24] MEDS: PREGABALIN 75 MG CAPSULE PO SCH ×2 (17:07→20:11)
[2016-12-25] MEDS: ALBUTEROL/IPRATROPIUM 3 ML NEB RESP TX SCH ×4 (00:40→19:42)
[2016-12-25] MEDS: KETOROLAC 10 MG TABLET PO SCH ×3 (00:42→13:39)
[2016-12-25] MEDS: FUROSEMIDE 20 MG/2 ML VIAL IV SCH ×4 (00:47→23:55)
[2016-12-25] MEDS: MUPIROCIN 2% OINT 22 GM TUBE TOP SCH ×3 (00:48→21:02)
[2016-12-25] MEDS: ZINC OXIDE 16% PASTE 57 GM TUBE TOP SCH ×3 (00:48→21:02)
[2016-12-25 03:35] LABS: Basophils % 0.4 % (0.0-0.8); Eosinophils # 0.3 10*3/uL (0.0-0.87); Eosinophils % 6.6 % (0.00-10.9); Hematocrit 24.2 VOL% (42.0-52.0); Hemoglobin 8.5 GM/DL (14.0-18.0); Immature Granulocytes % 0.6 %; Immature Granulocytes Absolute 0.03 #; Lymphocytes # 1.5 10*3/uL (1.4-4.0); Lymphocytes % 30.1 % (21.2-54.2); Mean Corpuscular HGB Conc 35.1 GM/DL (32-36); Mean Corpuscular Hemoglobin 32 PG (27-34); Mean Corpuscular Volume 91.3 FL (87-102); Mean Platelet Volume 11.1 FL (9.6-12.0); Monocytes # 0.4 10*3/uL (0.11-0.8); Monocytes % 8.1 % (1.7-12.7); Neutrophils # 2.6 10*3/uL (1.4-7.4); Neutrophils % 54.2 % (38.7-73.9); Platelet Count 245 T/CUMM (130-400); Red Blood Count 2.65 MC/CUMM (3.8-5.5); Red Cell Distribution Width 16.3 % (9.3-17.3); White Blood Count 4.8 T/CUMM (4-12)
[2016-12-25 04:01] LABS: Calcium 7.8 MG/DL (8.5-10.1); Magnesium 1.7 MG/DL (1.8-2.4); Osmolality,Calculated 277.5 MOS/KG (273-304); Potassium 3.3 MMOL/L (3.5-5.1)
[2016-12-25 04:02] LABS: Calcium 7.7 MG/DL (8.5-10.1); Osmolality,Calculated 276.5 MOS/KG (273-304); Potassium 3.4 MMOL/L (3.5-5.1)
[2016-12-25] MEDS: VANCOMYCIN INJ 750 MG in SODIUM CHLORIDE 0.9% 250 ML IV SCH ×2 (05:19→18:16)
--- NOTE | 2016-12-25 07:18 | XRay Report ---
Exam: XR chest 1V portable Date: 12/25/2016 4:00 AM Indication: Follow-up respiratory failure Comparison: 12/24/2016 Technical: AP Findings: Diffuse alveolar interstitial densities are present throughout the right chest and bibasilar effusions are present with some thickening of interstitial markings in the left and right perihilar regions. Arthritic change present. No pneumothorax. ASVD is present. Impression: 1. Bibasilar effusions and atelectatic change and infiltrates right greater than left 2. No obvious endotracheal tube present PROCEDURE INTERPRETED AT [facility] DEPARTMENT OF RADIOLOGY Final Report Signed by: Dr. Angel Aburto
--- NOTE | 2016-12-25 07:29 | Urology Progress Note ---
Urology - PN: Subj Interval history: We will take the patient's Serrano out today and give him a trial of voiding Exam - Constitutional Vitals: Period Temp Pulse Resp BP Sys/Sarmiento Pulse Ox Last 24 Hr 97.8 F-99.8 F 78-100 16-20 102-128/51-70 91-100 Results - Labs CBC & BMP: 12/25/16 02:41 12/25/16 02:41 Specialty Discharge - Follow Up or Referrals Follow up with: Joel Stokes MD [Physician] -
[2016-12-25] MEDS: TAMSULOSIN 0.4 MG CAPSULE PO SCH ×2 (08:08→21:02)
[2016-12-25] MEDS: HYDROmorphone 2 MG/1 ML VIAL IV PRN (08:12)
[2016-12-25] MEDS: ASPIRIN CHEW 81 MG TABLET PO SCH (08:28)
[2016-12-25] MEDS: PREGABALIN 75 MG CAPSULE PO SCH ×2 (08:28→21:03)
[2016-12-25] MEDS: DUTASTERIDE 0.5 MG CAPSULE PO SCH (08:29)
[2016-12-25] MEDS: POTASSIUM CHLORIDE 20 MEQ TABLET PO SCH ×3 (08:29→21:02)
[2016-12-25] MEDS: FLUoxetine 20 MG CAPSULE PO SCH (08:29)
[2016-12-25] MEDS: DOCUSATE SODIUM 100 MG CAPSULE PO SCH ×2 (08:29→21:02)
[2016-12-25] MEDS: MAGNESIUM CHLORIDE 64 MG TABLET PO SCH ×2 (08:29→21:02)
[2016-12-25] MEDS: PANTOPRAZOLE 40 MG TABLET PO SCH (08:29)
[2016-12-25] MEDS ORDERED: BUPIVACAINE 0.5% 50 ML VIAL ONE (10:55)
--- NOTE | 2016-12-25 11:25 | Pulmonology Progress Note ---
Pulmonary - PN: Subj Interval history: Dukejudy Lakhani, AGNP-, acting as scribe for Dr. Angel Tran This is a 76-year-old white male who we saw in pulmonary consultation on 2016. This man has a very poor memory. At the time of our initial consultation, our impressions were: 1. Acute right upper lung pneumonia. 2. Probable history of bronchospastic disease. 3. Congestive heart failure. 4. Significant bilateral lower extremity edema and edema about the elbows and both arms. Some of this could be due to his low proteins and albumin. Spongy quality of edema in the lower extremities could possibly be secondary to Procardia so consider possibility of stopping this. 5. Peripheral artery disease. Recent surgery. 6. High blood pressure 7. History of hyperlipidemia 8. BPH 12/23/2016. Doppler venograms are negative for deep venous thrombophlebitis.Today 's chest x-ray shows the right upper lung infiltrate is smaller than before. It is alveolar in character and has air bronchograms. There is a pleural effusion at the right costophrenic angle. This involves the major fissure. There is slight blunting of the left costophrenic angle. There is apparent bilateral perihilar fullness. There is a background of interstitial scarring and this is a portable film. I think we are dealing with a right upper lung pneumonia and a right-sided pleural effusion. I think the patient's congestive heart failure for all practical purposes is resolved. Natruretic peptide is dropped to 308. Sodium is 134. Potassium 3.4. Creatinine is 0.7 with a BUN of 20. T4 is low normal range. Last H&H was 9.1/25.5. I have ordered repeat lab. We will repeat his chest x-ray tomorrow. Also repeat lab. 12/24/2016. Patient's chest x-ray is stable today. Patient's memory appears better today. He states yesterday "was really bad day". Upon further questioning today, he states that he does have a history of tobacco use. When asked when he quit, he states "approximately 30 days ago". He also confirms reflux. He has difficulty swallowing as well. He states he has to have his main ground up, but most of this is secondary to "bad teeth". He previously had a Doppler of the right lower extremity, but left lower extremity was not done. We will obtain Doppler of the left lower extremity for completeness. He does have edema on the left as well. BNP has fallen to 198. He is on Lasix 20 mg IV every 8 hours. Sputum for Gram stain, culture and sensitivity has been ordered, however, thus far has not been collected. MRSA screen of the nares is positive. We have started Bactroban today. 1 of 2 blood cultures obtained at admission is growing a gram-positive cocci. It is possible that this is a contaminant. Final ID and sensitivities are pending. Cold agglutinins are negative. Medications have been reviewed. Labs been reviewed. White count is 7000 with 71.2% segs; H&H 9.6/26.9; platelet count 243,000; creatinine 0.60, BUN 15, sodium 136, potassium 3.3 ( hypokalemia); magnesium 1.5 (hypomagnesemia); BNP 198 12/25/2016. Patient was seen today along with his nurse. Patient appears to be doing reasonably well today. He has been seen in pain management consultation by Dr. Avery. His note has been reviewed. He is for possible lumbar sympathetic nerve block today secondary to leg pain. Chest x-ray today shows central vascular engorgement on the left and the right. The infiltrate in the right upper lung is resolving. There is also evidence of chronic volume loss because the minor fissure is elevated. There is also a new fairly dense infiltrate in the right lower leg. This raises the question whether or not this patient is an aspirator. Please see the note dated 12/24/2016 regarding patient's gastroesophageal reflux and dysphasia. The changes noted on his x-ray , will proceed with fiberoptic bronchoscopy tomorrow. This is been scheduled and orders have been placed in the EMR. Should the patient require any other procedures, we have notified the nursing staff at the time of our fiberoptic bronchoscopy can be adjusted depending they need only let us know. Of note, he did report a cough today, but states that it is nonproductive. Doppler venogram of the left lower extremity yesterday showed no DVT. Echocardiogram done 12/22/[address] Junior showed an EF 55-60%, grade 2 diastolic dysfunction with moderately elevated filling pressures, mildly enlarged left atrium, moderately thickened and calcified mitral valve with trace to mild mitral regurgitation, mild aortic valve sclerosis without stenosis or regurgitation, and trace to mild tricuspid valve regurgitation with a pulmonary artery pressure of 25 mmHg + the right atrial pressure. Medications have been reviewed. We made no changes today. Labs been reviewed. White count is 4800 with a normal differential; H&H has dropped slightly to 8.5/24.2; platelet count 245,000; creatinine 0.60, BUN 16, sodium 139, potassium 3.4, magnesium 1.7; BNP 217 Exam (Progress Note) - Constitutional Vitals: Period Temp Pulse Resp BP Sys/Sarmiento Pulse Ox Last 24 Hr 97.8 F-99.8 F 78-100 16-20 111-128/59-70 93-100 Exam: Chest is wheeze free Heart with distant sounds Abdomen is nontender and nondistended; bowel sounds are positive 4 Extremities see above Psychiatric alert with fair memory today Neurologic unchanged Plan: We will proceed with fiberoptic bronchoscopy tomorrow. Continue potassium and magnesium replacements. Continue other present treatment. See orders. Results - Labs CBC & BMP: 12/25/16 02:41 12/25/16 02:41 Specialty Discharge - Follow Up or Referrals Follow up with: Joel Stokes MD [Physician] -
--- NOTE | 2016-12-25 11:48 | Event Note ---
Right lumbar sympathetic block accomplished for RLE neuropathic pain separately dictated, results to be determined. Will wean from IV opioids. Continue Lyrica.
[2016-12-25] MEDS ORDERED: fentaNYL 100 MCG/2 ML VIAL ONE (12:59)
[2016-12-25] MEDS ORDERED: KETAMINE 500 MG/10 ML VIAL ONE (12:59)
[2016-12-25] MEDS ORDERED: MIDAZOLAM 2 MG/2 ML VIAL ONE (13:00)
--- NOTE | 2016-12-25 13:25 | Anesthesia Post-Op ---
Anesthesia Post OP - Post Ansesthetic Evaluation Patient seen in post op: Yes Resp: within normal limits CV: within normal limits Mental: within normal limits Temp: within normal limits [id number]: within normal limits Nausea and Vomiting: within normal limits Pain: within normal limits
[2016-12-25] MEDS: oxyCODONE IR 5 MG TABLET PO PRN ×2 (14:09→21:01)
[2016-12-25] MEDS: LEVOFLOXACIN INJ 500 MG in PREMIX 1 EACH IV SCH (15:01)
[2016-12-25] MEDS: ONDANSETRON 4 MG/2 ML VIAL IV PRN (15:02)
[2016-12-25] MEDS ORDERED: MAGNESIUM HYDROXIDE SUSP 30 ML UDCUP PO PRN (16:54)
--- NOTE | 2016-12-25 16:56 | Event Note ---
Mr. Wilson had a lumbar sympathetic block earlier today states he still having severe pain in his foot although the foot itself looks adequately perfused and the edema is not impressive for the surgery that he is have his incisions along the thigh or healing with no sign of infection he is complaining a bit of constipation so I will add milk of magnesia which she can have tonight will resume his diet and will get his Serrano catheter out as has not been removed yet today. He is running fever which I suspect is coming from the long as it appears to be increasing in the infiltrate in the effusion. The MRSA that was found was actually in the nares on admission to the ICU and has not been in the blood culture that was read as positive third
[2016-12-25] MEDS: ENOXAPARIN 30 MG/0.3 ML SYRINGE SUBCUT SCH (21:02)
[2016-12-25] MEDS: DIAZEPAM 5 MG TABLET PO PRN (21:29)
[2016-12-26] MEDS: DIAZEPAM 5 MG TABLET PO PRN (00:07)
[2016-12-26] MEDS: VANCOMYCIN INJ 750 MG in SODIUM CHLORIDE 0.9% 250 ML IV SCH ×2 (05:41→18:23)
[2016-12-26 06:39] LABS: Basophils % 0.5 % (0.0-0.8); Eosinophils # 0.4 10*3/uL (0.0-0.87); Eosinophils % 5.7 % (0.00-10.9); Hematocrit 25.6 VOL% (42.0-52.0); Hemoglobin 8.9 GM/DL (14.0-18.0); Immature Granulocytes % 1.3 %; Immature Granulocytes Absolute 0.08 #; Lymphocytes # 1.8 10*3/uL (1.4-4.0); Lymphocytes % 28.7 % (21.2-54.2); Mean Corpuscular HGB Conc 34.8 GM/DL (32-36); Mean Corpuscular Hemoglobin 32 PG (27-34); Mean Corpuscular Volume 92.8 FL (87-102); Mean Platelet Volume 10.7 FL (9.6-12.0); Monocytes # 0.4 10*3/uL (0.11-0.8); Neutrophils # 3.6 10*3/uL (1.4-7.4); Neutrophils % 57.8 % (38.7-73.9); Platelet Count 304 T/CUMM (130-400); Red Blood Count 2.76 MC/CUMM (3.8-5.5); Red Cell Distribution Width 16.2 % (9.3-17.3); White Blood Count 6.1 T/CUMM (4-12)
[2016-12-26] MEDS: ALBUTEROL/IPRATROPIUM 3 ML NEB RESP TX SCH ×4 (06:40→20:02)
[2016-12-26 06:53] LABS: INR 1.1; PT Patient Result 12.1 SECS; Partial Thromboplastin Time 31.3 SECS (0-40)
[2016-12-26] MEDS: FUROSEMIDE 20 MG/2 ML VIAL IV SCH ×3 (07:00→22:57)
[2016-12-26 07:03] LABS: Magnesium 1.8 MG/DL (1.8-2.4); Osmolality,Calculated 276.8 MOS/KG (273-304); Potassium 3.9 MMOL/L (3.5-5.1)
[2016-12-26 07:13] LABS: Osmolality,Calculated 276.8 MOS/KG (273-304); Potassium 3.9 MMOL/L (3.5-5.1)
--- NOTE | 2016-12-26 07:33 | Urology Progress Note ---
Urology - PN: Subj Interval history: The patient thinks that he is voiding well with the Serrano out but no residual urines were reported. Exam - Constitutional Vitals: Period Temp Pulse Resp BP Sys/Sarmiento Pulse Ox Last 24 Hr 98.0 F-101.2 F 52-106 14-20 111-162/60-92 91-97 Results - Labs CBC & BMP: 12/26/16 06:01 12/26/16 06:01 Specialty Discharge - Follow Up or Referrals Follow up with: Joel Stokes MD [Physician] -
[2016-12-26] MEDS ORDERED: LIDOCAINE 2% 20 ML VIAL RESP TX ONE (08:00)
[2016-12-26] MEDS ORDERED: LIDOCAINE 2% VISCOUS 100 ML BOTTLE SWISH/SPIT ONE (08:00)
[2016-12-26] MEDS ORDERED: LIDOCAINE 1% 20 ML VIAL MISC INJ ONE (08:00)
[2016-12-26] MEDS: oxyCODONE IR 5 MG TABLET PO PRN ×3 (08:37→21:13)
[2016-12-26] MEDS: TAMSULOSIN 0.4 MG CAPSULE PO SCH ×2 (08:37→21:13)
[2016-12-26] MEDS: PANTOPRAZOLE 40 MG TABLET PO SCH (08:37)
[2016-12-26] MEDS: DUTASTERIDE 0.5 MG CAPSULE PO SCH (08:37)
[2016-12-26] MEDS: DOCUSATE SODIUM 100 MG CAPSULE PO SCH ×2 (08:37→21:12)
[2016-12-26] MEDS: POTASSIUM CHLORIDE 20 MEQ TABLET PO SCH ×3 (08:37→21:11)
[2016-12-26] MEDS: MAGNESIUM CHLORIDE 64 MG TABLET PO SCH ×2 (08:37→21:13)
[2016-12-26] MEDS: ASPIRIN CHEW 81 MG TABLET PO SCH (08:37)
[2016-12-26] MEDS: FLUoxetine 20 MG CAPSULE PO SCH (08:37)
[2016-12-26] MEDS: ZINC OXIDE 16% PASTE 57 GM TUBE TOP SCH ×2 (08:38→21:24)
[2016-12-26] MEDS: MUPIROCIN 2% OINT 22 GM TUBE TOP SCH ×2 (08:38→21:24)
[2016-12-26] MEDS: MULTIVITAMIN (INTRINSIC) CAPSULE PO SCH ×2 (09:34→21:13)
[2016-12-26] MEDS: PREGABALIN 75 MG CAPSULE PO SCH ×3 (09:34→21:12)
[2016-12-26] MEDS: ENOXAPARIN 30 MG/0.3 ML SYRINGE SUBCUT SCH ×2 (09:36→21:25)
--- NOTE | 2016-12-26 11:16 | XRay Report ---
Exam: XR chest 1V portable Date: 12/26/2016 9:54 AM Indication: Pneumonia Comparison: 12/25/2016 Technical: AP Findings: Low volume right effusion and left effusion present with underlying atelectatic change and infiltrates with improving aeration and decreasing alveolar edema or infiltrates in the upper lobe on the right and the left base and right infrahilar region. ASVD. The heart is normal in size. Impression: 1. Low volume effusions and atelectatic change infiltrates with the basilar regions with overall improving aeration in the lung teague bilaterally. PROCEDURE INTERPRETED AT [facility] DEPARTMENT OF RADIOLOGY Final Report Signed by: Dr. Angel Aburto
[2016-12-26] MEDS ORDERED: DIAZEPAM 5 MG TABLET PO ONE (11:26)
--- NOTE | 2016-12-26 11:30 | Pain Management Progress Note ---
Assessment and Plan (1) Leg pain, diffuse Status: Acute Assessment and plan: Pain in foot and leg definately improved from sympathetic block, could be repeated in a week as needed. Despite his c/o continued pain, I reminded him he' s no longer on IV dialudid. He's been up and around the halls with PT, now recurrence of chronic LBP. Will check L/S MRI. Continue Percocet 10mg q6 prn and increase Lyrica to 75 tid. Current Visit: Yes Pain - Subjective Interval history: Pain and attitude much improved. Exam - Constitutional Vitals: Period Temp Pulse Resp BP Sys/Sarmiento Pulse Ox Last 24 Hr 98.0 F-101.2 F 52-106 14-20 111-162/60-92 91-98 Results - Labs CBC & BMP: 12/26/16 06:01 12/26/16 06:01 Quality Measures - VTE Contraindication to Pharmacological VTE Prophylaxis: High Risk of Bleeding Specialty Discharge - Follow Up or Referrals Follow up with: Joel Stokes MD [Physician] -
--- NOTE | 2016-12-26 12:16 | Pulmonology Progress Note ---
Pulmonary - PN: Subj Interval history: Dukejudy Lakhani, AGNP-, acting as scribe for Dr. Angel Tran This is a 76-year-old white male who we saw in pulmonary consultation on 2016. This man has a very poor memory. At the time of our initial consultation, our impressions were: 1. Acute right upper lung pneumonia. 2. Probable history of bronchospastic disease. 3. Congestive heart failure. 4. Significant bilateral lower extremity edema and edema about the elbows and both arms. Some of this could be due to his low proteins and albumin. Spongy quality of edema in the lower extremities could possibly be secondary to Procardia so consider possibility of stopping this. 5. Peripheral artery disease. Recent surgery. 6. High blood pressure 7. History of hyperlipidemia 8. BPH 12/23/2016. Doppler venograms are negative for deep venous thrombophlebitis.Today 's chest x-ray shows the right upper lung infiltrate is smaller than before. It is alveolar in character and has air bronchograms. There is a pleural effusion at the right costophrenic angle. This involves the major fissure. There is slight blunting of the left costophrenic angle. There is apparent bilateral perihilar fullness. There is a background of interstitial scarring and this is a portable film. I think we are dealing with a right upper lung pneumonia and a right-sided pleural effusion. I think the patient's congestive heart failure for all practical purposes is resolved. Natruretic peptide is dropped to 308. Sodium is 134. Potassium 3.4. Creatinine is 0.7 with a BUN of 20. T4 is low normal range. Last H&H was 9.1/25.5. I have ordered repeat lab. We will repeat his chest x-ray tomorrow. Also repeat lab. 12/24/2016. Patient's chest x-ray is stable today. Patient's memory appears better today. He states yesterday "was really bad day". Upon further questioning today, he states that he does have a history of tobacco use. When asked when he quit, he states "approximately 30 days ago". He also confirms reflux. He has difficulty swallowing as well. He states he has to have his main ground up, but most of this is secondary to "bad teeth". He previously had a Doppler of the right lower extremity, but left lower extremity was not done. We will obtain Doppler of the left lower extremity for completeness. He does have edema on the left as well. BNP has fallen to 198. He is on Lasix 20 mg IV every 8 hours. Sputum for Gram stain, culture and sensitivity has been ordered, however, thus far has not been collected. MRSA screen of the nares is positive. We have started Bactroban today. 1 of 2 blood cultures obtained at admission is growing a gram-positive cocci. It is possible that this is a contaminant. Final ID and sensitivities are pending. Cold agglutinins are negative. Medications have been reviewed. Labs been reviewed. White count is 7000 with 71.2% segs; H&H 9.6/26.9; platelet count 243,000; creatinine 0.60, BUN 15, sodium 136, potassium 3.3 ( hypokalemia); magnesium 1.5 (hypomagnesemia); BNP 198 12/25/2016. Patient was seen today along with his nurse. Patient appears to be doing reasonably well today. He has been seen in pain management consultation by Dr. Avery. His note has been reviewed. He is for possible lumbar sympathetic nerve block today secondary to leg pain. Chest x-ray today shows central vascular engorgement on the left and the right. The infiltrate in the right upper lung is resolving. There is also evidence of chronic volume loss because the minor fissure is elevated. There is also a new fairly dense infiltrate in the right lower leg. This raises the question whether or not this patient is an aspirator. Please see the note dated 12/24/2016 regarding patient's gastroesophageal reflux and dysphasia. The changes noted on his x-ray , will proceed with fiberoptic bronchoscopy tomorrow. This is been scheduled and orders have been placed in the EMR. Should the patient require any other procedures, we have notified the nursing staff at the time of our fiberoptic bronchoscopy can be adjusted depending they need only let us know. Of note, he did report a cough today, but states that it is nonproductive. Doppler venogram of the left lower extremity yesterday showed no DVT. Echocardiogram done 12/22/[address] Junior showed an EF 55-60%, grade 2 diastolic dysfunction with moderately elevated filling pressures, mildly enlarged left atrium, moderately thickened and calcified mitral valve with trace to mild mitral regurgitation, mild aortic valve sclerosis without stenosis or regurgitation, and trace to mild tricuspid valve regurgitation with a pulmonary artery pressure of 25 mmHg + the right atrial pressure. Medications have been reviewed. We made no changes today. Labs been reviewed. White count is 4800 with a normal differential; H&H has dropped slightly to 8.5/24.2; platelet count 245,000; creatinine 0.60, BUN 16, sodium 139, potassium 3.4, magnesium 1.7; BNP 217 12/26/2016. The patient was seen today along with physical therapy. Yesterday we discussed fiberoptic bronchoscopy with the patient, however, he did not remember this and therefore refused to sign the consent today. Again, today we discussed the need for bronchoscopy and the rationale for this and he again is agreeable. We have rescheduled bronchoscopy for tomorrow. We discussed this with his nurse and hopefully he will remember that he agreed today. Overall, the patient seems to be doing reasonably well. We have again placed bronchoscopy orders in the EMR. The patient was febrile yesterday with a high temperature up to 101.2. He has since become afebrile. Medications have been reviewed. We made no changes today. Labs been reviewed. White count is 6100 with a normal differential; H&H 8.9/ 25.6; platelet count 304,000; INR 1.1; creatinine 0.70, BUN 18, electrolytes are normal; BNP 147 Exam (Progress Note) - Constitutional Vitals: Period Temp Pulse Resp BP Sys/Sarmiento Pulse Ox Last 24 Hr 98.0 F-101.2 F 52-106 18-20 111-137/60-92 91-98 Exam: Chest is wheeze free; loose large airway congestion Heart with distant sounds Abdomen is nontender and nondistended; bowel sounds are positive 4 Extremities see above; improving Psychiatric alert with fair memory today Neurologic unchanged Plan: We will proceed with fiberoptic bronchoscopy tomorrow. Continue potassium and magnesium replacements. Continue other present treatment. See orders. Results - Labs CBC & BMP: 12/26/16 06:01 12/26/16 06:01 Specialty Discharge - Follow Up or Referrals Follow up with: Joel Stokes MD [Physician] -
--- NOTE | 2016-12-26 13:24 | Magnetic Resonance Report ---
History: Severe pain in foot in patient who earlier underwent sympathetic block Date: 12/26/2016 Study: MRI lumbar spine without IV contrast Comparison exam: No previous lumbar MRI available The lumbar spine was imaged in the sagittal and axial planes on a 1.5 Marcia magnet without IV contrast. Sequences include T1, T2, and STIR images. There is no obvious acute compression fracture. There is no spondylolisthesis. Schmorl's nodes are noted inferiorly at L2-L4. There are type I and II Modic endplate changes at L2-L3 through L4-L5. There is scattered mild to moderate degenerative disc narrowing, more prominent at L2-L3 and L3-L4. There is scattered mild to moderate lumbar spondylosis. The conus medullaris terminates at the lower L1 level and is without gross mass lesion. There is no lumbar level epidural abscess or epidural hematoma. T12-L1: No significant spinal or neural foraminal stenosis L1-L2: No significant spinal or neural foraminal stenosis. Mild ligamentum flavum and facet hypertrophy L2-L3: Minimal narrowing of spinal canal related to mild posterior diffuse bulging disc and vertebral body osteophyte. There is no high-grade neural foraminal narrowing. There is mild ligament flavum and facet hypertrophy L3-L4: Minimal narrowing of the spinal canal related to mild posterior bulging disc and osteophyte, slightly lateralized to the left. There is moderate narrowing of the inferior recess of either neural foramen secondary to posterior lateral bulging disc and osteophyte, left more than right. There is mild ligamentum flavum and facet hypertrophy L4-L5: Minimal posterior bulging disc and osteophyte without high-grade spinal stenosis. There is moderate left greater than right neural foraminal narrowing related to posterior lateral bulging disc and osteophyte without vania nerve root impingement. L5-S1: Mild posterior diffuse bulging disc and vertebral body osteophyte with minimal narrowing of spinal canal but no high-grade spinal stenosis. There is moderate left and mild right neural foraminal narrowing related to posterior lateral bulging disc and vertebral body osteophyte as well as facet hypertrophy. There could be contact of the left L5 nerve root within the neural foramen. There is some scattered facet joint effusion related to facet arthropathy at L2-L3 through L4-L5. Impression: No high-grade spinal stenosis or vania disc extrusion. Multilevel mild spinal stenosis related to diffuse bulging disc and osteophyte as well as hypertrophic changes of the posterior elements as detailed above. There is multilevel neural foraminal narrowing, most prominent on the left at L5-S1 Degenerative disc disease PROCEDURE INTERPRETED AT [facility] DEPARTMENT OF RADIOLOGY Final Report Signed by: Dr. Leann Leija
--- NOTE | 2016-12-26 14:36 | Event Note ---
Ambulating in the saleh with physical therapy and doing quite well it would appear. Fever has decreased H&H is still borderline and I have started Trinsicon to try to improve his blood count. My thoughts R is here is reaching a point perhaps being ready to return to the swing bed depending on what Dr. Edwards's findings are with bronchoscopy tomorrow and foot Dr. Avery feels is best for him for chronic pain management
[2016-12-26] MEDS: LEVOFLOXACIN INJ 500 MG in PREMIX 1 EACH IV SCH (14:54)
--- NOTE | 2016-12-26 15:17 | Event Note ---
L/S MRI reviewed and although he has wear and tear spondylosis and DDD there is no adequate explaination for RLE pain which does not appear radicular anyhow. No other recommendations at this time, continue PT, Lyrica, Percocet, and consider repeat sympathetic block in a week if severe neuropathic pain continues.
[2016-12-27] MEDS: ALBUTEROL/IPRATROPIUM 3 ML NEB RESP TX SCH ×4 (00:39→19:18)
[2016-12-27 05:30] LABS: Basophils % 0.5 % (0.0-0.8); Eosinophils # 0.4 10*3/uL (0.0-0.87); Hematocrit 29.2 VOL% (42.0-52.0); Hemoglobin 10.1 GM/DL (14.0-18.0); Immature Granulocytes % 0.5 %; Immature Granulocytes Absolute 0.03 #; Lymphocytes # 1.9 10*3/uL (1.4-4.0); Mean Corpuscular HGB Conc 34.6 GM/DL (32-36); Mean Corpuscular Hemoglobin 33 PG (27-34); Mean Corpuscular Volume 94.5 FL (87-102); Mean Platelet Volume 10.2 FL (9.6-12.0); Monocytes # 0.5 10*3/uL (0.11-0.8); Monocytes % 7.5 % (1.7-12.7); Neutrophils # 3.8 10*3/uL (1.4-7.4); Neutrophils % 56.5 % (38.7-73.9); Platelet Count 356 T/CUMM (130-400); Red Blood Count 3.09 MC/CUMM (3.8-5.5); Red Cell Distribution Width 16.1 % (9.3-17.3); White Blood Count 6.7 T/CUMM (4-12)
[2016-12-27 05:44] LABS: INR 1.1; PT Patient Result 11.5 SECS
[2016-12-27] MEDS: VANCOMYCIN INJ 750 MG in SODIUM CHLORIDE 0.9% 250 ML IV SCH (05:52)
[2016-12-27 05:58] LABS: Calcium 8.2 MG/DL (8.5-10.1); Osmolality,Calculated 276.5 MOS/KG (273-304); Potassium 4.2 MMOL/L (3.5-5.1)
--- NOTE | 2016-12-27 07:50 | Urology Progress Note ---
Urology - PN: Subj Interval history: The patient is voiding well but after 3 days I still do not have a single residual urine recorded. I have asked the nurse to do an in and out cath every 8 hours and as needed after he voids for residual urine and I will also get a bladder scan to see if I can come up with a residual urine today Exam - Constitutional Vitals: Period Temp Pulse Resp BP Sys/Sarmiento Pulse Ox Last 24 Hr 96 F-98.4 F 72-96 18-19 99-133/45-90 94-98 Results - Labs CBC & BMP: 12/27/16 05:15 12/27/16 05:15 Specialty Discharge - Follow Up or Referrals Follow up with: Joel Stokes MD [Physician] -
[2016-12-27] MEDS ORDERED: LIDOCAINE 1% 20 ML VIAL MISC INJ ONE (08:00)
[2016-12-27] MEDS ORDERED: LIDOCAINE 2% 20 ML VIAL RESP TX ONE (08:00)
[2016-12-27] MEDS ORDERED: LIDOCAINE 2% VISCOUS 100 ML BOTTLE SWISH/SPIT ONE (08:00)
--- NOTE | 2016-12-27 08:57 | Event Note ---
Mr. Wilson's fever seems to have resolved he is sleeping this morning but not complaining of pain in his leg looks good. He is due for bronchoscopy today I can probably return him to the swing bed this weekend if Dr. Edwards feels it safe for him to go I will stop the vancomycin at this time
[2016-12-27] MEDS: TAMSULOSIN 0.4 MG CAPSULE PO SCH ×2 (09:00→20:44)
[2016-12-27] MEDS: POTASSIUM CHLORIDE 20 MEQ TABLET PO SCH ×3 (09:00→20:43)
[2016-12-27] MEDS: MUPIROCIN 2% OINT 22 GM TUBE TOP SCH ×2 (09:00→20:47)
[2016-12-27] MEDS: ZINC OXIDE 16% PASTE 57 GM TUBE TOP SCH ×2 (09:00→20:47)
[2016-12-27] MEDS: MAGNESIUM CHLORIDE 64 MG TABLET PO SCH ×2 (09:00→20:43)
[2016-12-27] MEDS: DOCUSATE SODIUM 100 MG CAPSULE PO SCH ×2 (09:00→20:44)
[2016-12-27] MEDS: PREGABALIN 75 MG CAPSULE PO SCH ×3 (09:00→20:44)
[2016-12-27] MEDS: ENOXAPARIN 30 MG/0.3 ML SYRINGE SUBCUT SCH ×2 (09:00→20:46)
[2016-12-27] MEDS: MULTIVITAMIN (INTRINSIC) CAPSULE PO SCH ×2 (09:00→20:44)
[2016-12-27] MEDS: FUROSEMIDE 20 MG/2 ML VIAL IV SCH (09:01)
[2016-12-27] MEDS: SODIUM CHLORIDE 0.9% 500 ML IV SCH (09:59)
[2016-12-27] MEDS ORDERED: MIDAZOLAM 2 MG/2 ML VIAL IV ONE (10:35)
[2016-12-27] MEDS ORDERED: MIDAZOLAM 2 MG/2 ML VIAL ONE (11:08)
--- NOTE | 2016-12-27 13:11 | Event Note ---
In hospital diagnostic and therapeutic fiberoptic bronchoscopy. Bilateral bronchoalveolar lavage specimens were sent for cytology, Gram stain, bacterial cultures, fungal stains and culture, AFB stains and culture. This is a 76-year-old white male smoker who has had a right upper lung pneumonia with loss of volume. This was followed by an infiltrate in the right lower lung. His cough appeared to be ineffective. He complains of dysphasia and it was suspected he might also have aspiration. For these reasons she is evaluated with fiberoptic bronchoscopy. The vocal cords were normal. The patient had practically no gag reflex. The trachea was widely deviated to the right and was moderately collapsible. The osvaldo was sharp. Right mainstem bronchus contains secretions. These were also present in the right upper lung right middle lung but the most secretions were seen in the right lower lung. The airways were markedly collapsible secondary to severe COPD. Many bronchial plugs were removed with bronchoalveolar lavage. The underlying mucosa appeared fairly normal with scattered areas of erosive friable bronchitis. The left mainstem bronchus, left upper lung and left lower lung contain secretions. There were multiple dense hard to remove bronchial plugs in the left lower lung. These were removed with bronchoalveolar lavage. The large and small airways especially in the left lower lung were markedly collapsible secondary to severe COPD. No endobronchial lesions were seen on the right or left that appeared to be cancerous. The patient tolerated procedure well and there were no complications. Impression. 1. Right upper lung pneumonia with volume loss followed by right lower lung infiltrates. 2. Disordered swallowing is suspected aspiration. Not found on fiberoptic bronchoscopy. 3. Severe COPD with markedly collapsible large and small airways which are most prominent in the right lower lung and the left lower lung 4. Retained secretions with multiple bibasilar bronchial plugs. 5. Ineffective cough 6. Poor gag reflex. Plan. 1. Check bronchoscopy specimens 2. Follow-up x-ray.
--- NOTE | 2016-12-27 13:23 | Pulmonology Progress Note ---
Pulmonary - PN: Subj Interval history: This is a 76-year-old white male whom I saw in pulmonary consultation on 2016. This man has a very poor memory. My impressions were. 1. Acute right upper lung pneumonia. Followed by right lower lung pneumonia. Pneumonia is resolved with a residual parapneumonic effusion 2. Probable history of bronchospastic disease. 3. Congestive heart failure. 4. Significant bilateral lower extremity edema. Greater in the right leg as compared to the left leg. edema about the elbows and both arms. Some of this could be due to his low proteins and albumin. Spongy quality of edema in the lower extremities could possibly be secondary to Procardia so consider possibility of stopping this. 5. Peripheral artery disease. Recent surgery. 6. High blood pressure 7. History of hyperlipidemia 8. BPH 9. Severe COPD seen on bronchoscopy done 12/27/2016. 10. Dementia 12/23/2016. Doppler venograms are negative for deep venous thrombophlebitis.Today 's chest x-ray shows the right upper lung infiltrate is smaller than before. It is alveolar in character and has air bronchograms. There is a pleural effusion at the right costophrenic angle. This involves the major fissure. There is slight blunting of the left costophrenic angle. There is apparent bilateral perihilar fullness. There is a background of interstitial scarring and this is a portable film. I think we are dealing with a right upper lung pneumonia and a right-sided pleural effusion. I think the patient's congestive heart failure for all practical purposes is resolved. Natruretic peptide is dropped to 308. Sodium is 134. Potassium 3.4. Creatinine is 0.7 with a BUN of 20. T4 is low normal range. Last H&H was 9.25.5. I have ordered repeat lab. We will repeat his chest x-ray tomorrow. Also repeat lab 12/27/2016. This patient's had a right upper lung infiltrate with volume loss. He went on to develop right lower lung infiltrate and a small amount of fluid in the right and left chest cavities. He was evaluated with fiberoptic bronchoscopy today. There were no endobronchial cancers appearing lesions. He had a good deal of retained secretions and he had very dense bronchial plugs in both bases. These were removed with bronchoalveolar lavage. The underlying airways were markedly collapsible compatible with severe COPD. Specimens were sent for cytology, bacterial, fungal and AFB studies. Today his x-ray shows resolution of the infiltrates he does have a moderate size right pleural effusion and I think this will glove turner to be a parapneumonic effusion. His white count is normal and he is afebrile for quite some time. He had documented fever from 12/23/2016 through 12/25/2016 but he has become afebrile on antibiotics. He had a positive blood culture for Staphylococcus epidermidis. He had MRSA in his nares. I suspect his fever came from his pneumonia. The patient has become afebrile on Levaquin. Early on he was also treated with vancomycin which he is no longer receiving. When he goes home I think he should be left on 250 mg daily for another 7-10 days since she has a pleural effusion. White count is 6700 with 56 segs 29 lymphs and 7.5 monos. H&H is 10.1/29.2. Platelets are 356,000. INR is 1.1. Creatinine is 0.70 with a BUN of 16. Electrolytes are normal. From my standpoint I think this patient can be discharged whenever safe from the standpoint of his other conditions. Note that early on he had a nitrated peptide of 308 and he was diuresed slightly. Natruretic Peptide is now 140s. The patient was initially on Lasix 20 mg IV push every 8 hours. I am switching that to 20 mg every morning. I will sign off. Please reconsult if needed Physical exam. Vital signs. Low-grade fever. Psychiatric. He is alert. His memory is almost nonexistent. Face is symmetrical. There is no edema of the lips or tongue. Neck. Symmetrical. No meningismus. Chest. Surprisingly clear. Heart. Distant heart sounds Abdomen. Nontender. Bowel sounds are present Extremities. Patient has +2/4 right lower extremity edema that extends to the tibial plateau. There is been venous harvesting on the side. Edema previously noted on the left side has resolved. Patient does have sacral edema and he has edema about both elbows. Plan. 12/22/2016 1. Sputum for Gram stain culture and sensitive 3.Echocardiogram. 2. Follow-up chest x-ray 4. Cold agglutinins 5. Inhalation therapy 6. Lasix 20 IV push every 8 hours. He does not diuresis we could consider salt poor albumin 25 g IV piggyback followed by 20 mg of Lasix IV push immediately afterwards on a q. 8 hour basis 7. Consider stoppingACE inhibitor 8. Blood cultures #9. See orders per. 12/23/2016. 1. Hold Lasix 20 IV push every 8 hours. Watch renal status closely. 2. Edema in the left leg has resolved. Edema remains in right leg. Both elbows are edematous. Chest x-ray is better 3. Anemia. 4. Dementia. 5. Cultures pending 6. Chest x-ray and lab ordered for tomorrow 12/27/2016. 1. Fiberoptic bronchoscopy. COPD and retained secretions. No food particles. No evidence of cancer. 2. Right upper lung and right lower lung infiltrates have resolved. Residual small parapneumonic effusion. 3. Severe underlying COPD. 4. See today's note above. 5. Patient is stable from my standpoint. I will sign off. When discharged keep the patient on Levaquin 250 mg daily for 7-10 days Exam (Progress Note) - Constitutional Vitals: Period Temp Pulse Resp BP Sys/Sarmiento Pulse Ox Last 24 Hr 96 F-98.4 F 72-97 12-24 99-152/45-106 94-100 Results - Labs CBC & BMP: 12/27/16 05:15 12/27/16 05:15 Specialty Discharge - Follow Up or Referrals Follow up with: Joel Stokes MD [Physician] -
[2016-12-27] MEDS: ASPIRIN CHEW 81 MG TABLET PO SCH (16:55)
[2016-12-27] MEDS: DUTASTERIDE 0.5 MG CAPSULE PO SCH (16:56)
[2016-12-27] MEDS: FLUoxetine 20 MG CAPSULE PO SCH (17:00)
[2016-12-27] MEDS: PANTOPRAZOLE 40 MG TABLET PO SCH (17:00)
[2016-12-27] MEDS: LEVOFLOXACIN INJ 500 MG in PREMIX 1 EACH IV SCH (17:01)
[2016-12-27] MEDS: oxyCODONE IR 5 MG TABLET PO PRN (17:35)
[2016-12-27] MEDS: ACETAMINOPHEN 325 MG TABLET PO PRN (20:43)
[2016-12-28] MEDS: ALBUTEROL/IPRATROPIUM 3 ML NEB RESP TX SCH ×4 (00:01→21:26)
[2016-12-28] MEDS: oxyCODONE IR 5 MG TABLET PO PRN ×2 (05:55→12:10)
[2016-12-28] MEDS: DUTASTERIDE 0.5 MG CAPSULE PO SCH (09:25)
[2016-12-28] MEDS: DOCUSATE SODIUM 100 MG CAPSULE PO SCH ×2 (09:25→21:39)
[2016-12-28] MEDS: ASPIRIN CHEW 81 MG TABLET PO SCH (09:25)
[2016-12-28] MEDS: TAMSULOSIN 0.4 MG CAPSULE PO SCH ×2 (09:26→21:39)
[2016-12-28] MEDS: PREGABALIN 75 MG CAPSULE PO SCH ×3 (09:27→21:39)
[2016-12-28] MEDS: FUROSEMIDE 20 MG TABLET PO SCH (09:27)
[2016-12-28] MEDS: POTASSIUM CHLORIDE 20 MEQ TABLET PO SCH ×3 (09:27→21:39)
[2016-12-28] MEDS: ENOXAPARIN 30 MG/0.3 ML SYRINGE SUBCUT SCH ×2 (09:27→21:39)
[2016-12-28] MEDS: PANTOPRAZOLE 40 MG TABLET PO SCH (09:28)
[2016-12-28] MEDS: FLUoxetine 20 MG CAPSULE PO SCH (09:28)
[2016-12-28] MEDS: MAGNESIUM CHLORIDE 64 MG TABLET PO SCH ×2 (09:28→21:39)
[2016-12-28] MEDS: MULTIVITAMIN (INTRINSIC) CAPSULE PO SCH ×2 (09:28→21:39)
--- NOTE | 2016-12-28 09:46 | Event Note ---
He has no complaints. He has no shortness of breath. He has no lower extremity pain. He wants to go home. He is at a point where his surgery is not an issue as far as discharge. If it is okay with pulmonary medicine then he could go home.
--- NOTE | 2016-12-28 09:54 | Discharge Summary ---
Hospital Course - Hospital Course Hospital Course: He feels well and has no complaints. He came in from bleeding from a femoral- popliteal bypass graft. He then had pneumonia which she has been treated by Dr. Edwards but this is much improved. Dr. Tran signed off yesterday. Patient has no complaints now and has no evidence of ischemia or ongoing pneumonia and is afebrile. He wants to go home and I feel that he should be stable for discharge. We will have him follow up with Dr. Jacobsen. Specialty Discharge - Follow Up or Referrals Follow up with: Joel Stokes MD [Physician] - Discharge Plan - Discharge Data Disposition: Disch To Home/Self Care Condition at Discharge: Stable Discharge Diet: advance to your usual diet Activity: resume usual activities as tolerated - Discharge Medications No Action Albuterol/Ipratropium Neb [Duoneb] 3 ml RESP TX RT Q6H Docusate Sodium Cap [Colace Cap] 100 mg PO BID capsule FLUoxetine [PROzac] 40 mg PO DAILY capsule Lisinopril/Hctz 20-25 [Prinzide 20-25] 1 tablet PO DAILY tablet oxyCODONE/ACETAMINOPHEN 5-325 [Percocet 5-325] 2 tablet PO Q6H PRN tablet PRN Reason: Pain Moderate (4-7) Zinc Oxide 16% Paste [Myra's Butt Paste] 1 applic TOP BID applic Gabapentin Cap/Tab [Neurontin Cap/Tab] 600 mg PO BEDTIME Omeprazole [Prilosec] 20 mg PO DAILY Clopidogrel [Plavix] 75 mg PO DAILY Cyproheptadine Tab [Periactin Tab] 4 mg PO BEDTIME diazePAM [Valium] 10 mg PO Q12H PRN PRN Reason: Anxiety Potassium Chloride 20 meq PO DAILY Dutasteride [Avodart] 0.5 mg PO DAILY capsule Tamsulosin [Flomax] 0.4 mg PO BID capsule Gabapentin Cap/Tab [Neurontin Cap/Tab] 300 mg PO 09,12 Ibuprofen 400 mg PO Q6H PRN PRN Reason: Pain - Follow Up or Referral Follow Up: Joel Stokes MD [Physician] - 1 Week - Forms/Instructions Exam - Constitutional Vitals: Period Temp Pulse Resp BP Sys/Sarmiento Pulse Ox Last 24 Hr 97.7 F-100.7 F 78-99 12-24 106-152/55-106 90-100 Discharge Results Procedures and tests throughout hospitalization: Pending Orders 12/19/16 07:02 Fresh Frozen Plasma Routine Red Blood Cells Leuko Red Routine 12/22/16 14:44 Sputum Culture and Gram Stain Stat 12/26/16 14:15 Sputum Culture and Gram Stain Stat 12/27/16 AFB Culture/Smears Stat Bronchoalveolar Lavage C & GS Stat Fungal Culture w/ Prep Stat Labs on day of discharge: Preliminary micro results at discharge 12/27/16 Unknown Bronchoalveolar Lavage Culture - Preliminary Bronchial Des Lavage Normal [place] at 24 hours DS: Provider Date of admission: 12/19/16 06:22 Primary care physician: . No PCP Attending physician on admission: Joel Stokes MD Consults: 12/19/16 06:53 Consult to Pharmacy [CONS] Routine Reason for Pharmacy Consult: Dose/Manage Vancomycin 12/19/16 12:40 Consult to Dietitian [CONS] Routine Reason for Dietitian: Supplements and/or Snacks 12/20/16 18:05 Consult to Pastoral Services [CONS] Routine Comment: per patient request Pastoral Screen: Declines Visit 12/22/16 11:02 Consult to Physician [CONS] Routine Comment: shortness of breath, edema, crackles left lobes Consulting Provider: When should Consulting Provider be notified: Now Consult to Specialist Group: Pulmonology When should Consulting Provider be notified: Now Person Notified: [facility] Date Notified: 12/22/16 Time Notified: 11:40 Consult Notification Comment: Consult given to After Hours Call Service 12/24/16 12:25 Consult to Physician [CONS] Routine Comment: Consulting Provider: Consult to Physician [CONS] Routine Comment: chronic pain right foot Consulting Provider: Phil Avery Consulting Provider Notified: Yes When should Consulting Provider be notified: Now Consult to Specialist Group: Pain Management Person Notified: rosy called Date Notified: 12/24/16 Time Notified: 13:06 12/24/16 12:28 Consult to Physician [CONS] Routine Comment: Consulting Provider: Consult to Physician [CONS] Routine Comment: patient known to you,urinary retention, edema Consulting Provider: Avtar Bashir Consulting Provider Notified: Yes When should Consulting Provider be notified: Now Person Notified: dr. bashir saw Date Notified: 12/24/16 Time Notified: 13:15 12/24/16 12:32 Consult to Physical Therapy [CONS] Routine Reason for Physical Therapy: Ambulation Discharging clinician: Brady Zhu III.,
[2016-12-28] MEDS: ZINC OXIDE 16% PASTE 57 GM TUBE TOP SCH ×2 (09:55→22:34)
[2016-12-28] MEDS: MUPIROCIN 2% OINT 22 GM TUBE TOP SCH ×2 (10:05→22:33)
--- NOTE | 2016-12-28 10:17 | Event Note ---
Mr. Wilson is far improved from where he was several days ago and Dr. Edwards's bronchoscopy revealed primarily COPD and collapsible airways. He is recommending switching to p.o. Levaquin 250 mg daily for another 7-10 days and I will go ahead with that. Patient's leg is healing his foot is much more comfortable and he could return to the swing bed he was then when he returned at this time. I do not think he should be discharged home as he is living in a trailer and does not have much family support. Case management and social worker masters have been working with him and I do not feel we should send him home.
--- NOTE | 2016-12-28 15:05 | Urology Progress Note ---
Urology - PN: Subj Interval history: The patient is voiding well enough to go home. He needs to continue Flomax and Avodart Exam - Constitutional Vitals: Period Temp Pulse Resp BP Sys/Sarmiento Pulse Ox Last 24 Hr 97.7 F-100.7 F 78-99 18-18 106-136/55-83 90-100 Results - Labs CBC & BMP: 12/27/16 05:15 12/27/16 05:15 Specialty Discharge - Follow Up or Referrals Follow up with: Joel Stokes MD [Physician] - 1 Week
[2016-12-28] MEDS: SODIUM CHLORIDE 0.9% 500 ML IV SCH (22:34)
[2016-12-29] MEDS: oxyCODONE IR 5 MG TABLET PO PRN ×4 (00:13→21:01)
[2016-12-29] MEDS: ALBUTEROL/IPRATROPIUM 3 ML NEB RESP TX SCH ×4 (01:39→19:18)
[2016-12-29] MEDS: DOCUSATE SODIUM 100 MG CAPSULE PO SCH ×2 (09:24→21:01)
[2016-12-29] MEDS: DUTASTERIDE 0.5 MG CAPSULE PO SCH (09:24)
[2016-12-29] MEDS: TAMSULOSIN 0.4 MG CAPSULE PO SCH ×2 (09:24→21:01)
[2016-12-29] MEDS: ASPIRIN CHEW 81 MG TABLET PO SCH (09:24)
[2016-12-29] MEDS: PREGABALIN 75 MG CAPSULE PO SCH ×3 (09:25→21:01)
[2016-12-29] MEDS: POTASSIUM CHLORIDE 20 MEQ TABLET PO SCH ×3 (09:25→21:00)
[2016-12-29] MEDS: LEVOFLOXACIN 250 MG TABLET PO SCH (09:25)
[2016-12-29] MEDS: FUROSEMIDE 20 MG TABLET PO SCH (09:25)
[2016-12-29] MEDS: MAGNESIUM CHLORIDE 64 MG TABLET PO SCH ×2 (09:26→21:00)
[2016-12-29] MEDS: MULTIVITAMIN (INTRINSIC) CAPSULE PO SCH ×2 (09:26→21:00)
[2016-12-29] MEDS: PANTOPRAZOLE 40 MG TABLET PO SCH (09:26)
[2016-12-29] MEDS: SODIUM CHLORIDE 0.9% 500 ML IV SCH (09:30)
[2016-12-29] MEDS: ZINC OXIDE 16% PASTE 57 GM TUBE TOP SCH ×2 (09:32→21:03)
[2016-12-29] MEDS: MUPIROCIN 2% OINT 22 GM TUBE TOP SCH ×2 (09:32→21:03)
[2016-12-29] MEDS: ENOXAPARIN 30 MG/0.3 ML SYRINGE SUBCUT SCH ×2 (09:33→21:01)
[2016-12-29] MEDS: FLUoxetine 20 MG CAPSULE PO SCH (09:36)
--- NOTE | 2016-12-29 10:29 | Event Note ---
Mr. Wilson appears to be doing well this morning he is definitely much more comfortable he is ambulating in the saleh without difficulty. We are working to have him return to the swing bed perhaps that can be done tomorrow
--- NOTE | 2016-12-29 10:29 | Event Note ---
He has no complaints today. He has no leg pain and is feeling better. We are looking at placement for tomorrow.
--- NOTE | 2016-12-29 10:36 | Urology Progress Note ---
Urology - PN: Subj Interval history: The patient's last catheterized residual was 200 cc. I will change in and out catheter to as needed only Exam - Constitutional Vitals: Period Temp Pulse Resp BP Sys/Sarmiento Pulse Ox Last 24 Hr 97.7 F-99.3 F 83-99 15-20 105-141/57-82 93-100 Results - Labs CBC & BMP: 12/27/16 05:15 12/27/16 05:15 Specialty Discharge - Follow Up or Referrals Follow up with: Joel Stokes MD [Physician] - 1 Week
[2016-12-30] MEDS: ALBUTEROL/IPRATROPIUM 3 ML NEB RESP TX SCH ×4 (00:02→20:04)
[2016-12-30] MEDS: oxyCODONE IR 5 MG TABLET PO PRN ×2 (04:37→20:14)
--- NOTE | 2016-12-30 07:42 | Urology Progress Note ---
Urology - PN: Subj Interval history: The patient did not require catheterization yesterday. Will continue to do this on a as needed basis only. It is okay with me to discharge the patient as needed I will follow him in the office and see again if needed Exam - Constitutional Vitals: Period Temp Pulse Resp BP Sys/Sarmiento Pulse Ox Last 24 Hr 92 F-99.3 F 85-96 16-20 111-148/68-88 94-100 Results - Labs CBC & BMP: 12/27/16 05:15 12/27/16 05:15 Specialty Discharge - Follow Up or Referrals Follow up with: Avtar Bashir MD [Physician] - (CALL AND SCHEDULE AN APPOINTMENT FOR 3 MONTHS CHANGE IN AND OUT TO NEEDED ) Joel Stokes MD [Physician] - 1 Week (CALL OFFICE ON FRIDAY TO SCHEDULE AN APPOINTMENT)
[2016-12-30] MEDS: ENOXAPARIN 30 MG/0.3 ML SYRINGE SUBCUT SCH ×2 (09:12→20:15)
[2016-12-30] MEDS: PREGABALIN 75 MG CAPSULE PO SCH ×3 (09:13→20:15)
[2016-12-30] MEDS: DUTASTERIDE 0.5 MG CAPSULE PO SCH (09:13)
[2016-12-30] MEDS: FUROSEMIDE 20 MG TABLET PO SCH (09:13)
[2016-12-30] MEDS: ASPIRIN CHEW 81 MG TABLET PO SCH (09:13)
[2016-12-30] MEDS: MAGNESIUM CHLORIDE 64 MG TABLET PO SCH ×2 (09:13→20:15)
[2016-12-30] MEDS: DOCUSATE SODIUM 100 MG CAPSULE PO SCH ×2 (09:13→20:15)
[2016-12-30] MEDS: MULTIVITAMIN (INTRINSIC) CAPSULE PO SCH ×2 (09:13→20:16)
[2016-12-30] MEDS: PANTOPRAZOLE 40 MG TABLET PO SCH (09:13)
[2016-12-30] MEDS: FLUoxetine 20 MG CAPSULE PO SCH (09:13)
[2016-12-30] MEDS: LEVOFLOXACIN 250 MG TABLET PO SCH (09:13)
[2016-12-30] MEDS: POTASSIUM CHLORIDE 20 MEQ TABLET PO SCH ×3 (09:13→20:15)
[2016-12-30] MEDS: TAMSULOSIN 0.4 MG CAPSULE PO SCH ×2 (09:14→20:15)
--- NOTE | 2016-12-30 09:39 | Event Note ---
Mr. Wilson is generally doing well the small wound on the right thigh is closing and healing by secondary intention the incision site with raj look good his foot is much more comfortable than it was. He can go to the swing bed whenever a spot is available
[2016-12-30] MEDS: ZINC OXIDE 16% PASTE 57 GM TUBE TOP SCH ×2 (09:51→20:14)
[2016-12-30] MEDS: SODIUM CHLORIDE 0.9% 500 ML IV SCH (09:51)
[2016-12-30] MEDS: MUPIROCIN 2% OINT 22 GM TUBE TOP SCH ×2 (09:51→20:16)
--- NOTE | 2016-12-30 12:17 | Pathology Report from [facility] ---
[facility] ACCESSION # : [id number] PATIENT NAME : Gamal Robbins ORDERING DR : KIRK CALLOWAY MD CLINICAL HX: Acute right upper lung pneumonia POST-OP DX: Same SPECIMEN INFO: Washing,Bronchial,AQUILINO - 20 mls mucoid, clear CLASS: II CLASS COMMENTS: Squamous metaplasia, pulmonary macrophages, bacteria, and mild inflammationCELL BLOCK: Same CLASS LEGEND: CLASS 0 Material inadequate for diagnosis because of (see comment) CLASS I Absence of atypical or abnormal cells CLASS II Atypical Cytology but no evidence of malignancy CLASS III Cytology suggestive of but not conclusive for malignancy CLASS IV Cytology strongly suggestive of malignancy CLASS V Cytology conclusive for malignancy COLLECTED DATE: 12/27/2016 [facility] REPORT DATE: 12/30/2016 ELECTRONICALLY SIGNED BY: Tennille Kim M.D. 12/30/2016 - 8:49:48 [facility]
--- NOTE | 2016-12-30 13:02 | Case Mgmt Physician Query Form ---
TB Signs and Symptoms Screening ([place]) INSTRUCTIONS: To be completed annually on residents/staff with a significant Tuberculin Skin Test (TST) upon admission/hire or a prior significant TST. To be completed on all staff at hire. Please respond to each listed symptom with an (X) in either the "YES" or "NO" box. Do you currently have any of the following symptoms: YES NO (x ) ( ) A cough If yes, is it: ( ) Productive ( x) Non- productive ( ) ( x) Hemoptysis (spitting up blood) ( ) (x ) Chest pains ( ) ( x) Weight Loss ( ) (x ) Fever ( ) ( x) Night Sweats ( ) (x ) Weakness ( ) (x ) Loss of Appetite ( ) (xx ) Difficulty Breathing If you answered YES" to any of the above questions, how long have symptoms been present? Comments: If you have any questions, please contact me . Thank you, Rosa Germain Email: [email or web address] [facility] HEALTHYoel
[2016-12-31] MEDS: ALBUTEROL/IPRATROPIUM 3 ML NEB RESP TX SCH ×4 (00:40→19:45)
[2016-12-31] MEDS: oxyCODONE IR 5 MG TABLET PO PRN ×3 (02:40→18:36)
[2016-12-31 06:18] LABS: Basophils # 0.1 10*3/uL (0.0-0.2); Basophils % 0.7 % (0.0-0.8); Eosinophils # 0.2 10*3/uL (0.0-0.87); Eosinophils % 2.9 % (0.00-10.9); Hematocrit 27.8 VOL% (42.0-52.0); Hemoglobin 9.4 GM/DL (14.0-18.0); Immature Granulocytes % 0.7 %; Immature Granulocytes Absolute 0.05 #; Lymphocytes # 2.2 10*3/uL (1.4-4.0); Lymphocytes % 30.5 % (21.2-54.2); Mean Corpuscular HGB Conc 33.8 GM/DL (32-36); Mean Corpuscular Hemoglobin 32 PG (27-34); Mean Corpuscular Volume 94.6 FL (87-102); Monocytes # 0.5 10*3/uL (0.11-0.8); Monocytes % 7.2 % (1.7-12.7); Neutrophils # 4.2 10*3/uL (1.4-7.4); Platelet Count 440 T/CUMM (130-400); Red Blood Count 2.94 MC/CUMM (3.8-5.5); Red Cell Distribution Width 15.8 % (9.3-17.3); White Blood Count 7.3 T/CUMM (4-12)
[2016-12-31 06:44] LABS: Calcium 8.5 MG/DL (8.5-10.1); Osmolality,Calculated 273.8 MOS/KG (273-304); Potassium 4.4 MMOL/L (3.5-5.1)
[2016-12-31] MEDS: PANTOPRAZOLE 40 MG TABLET PO SCH (09:08)
[2016-12-31] MEDS: PREGABALIN 75 MG CAPSULE PO SCH ×3 (09:08→20:49)
[2016-12-31] MEDS: MAGNESIUM CHLORIDE 64 MG TABLET PO SCH ×2 (09:08→20:49)
[2016-12-31] MEDS: MULTIVITAMIN (INTRINSIC) CAPSULE PO SCH ×2 (09:08→20:49)
[2016-12-31] MEDS: FLUoxetine 20 MG CAPSULE PO SCH (09:08)
[2016-12-31] MEDS: LEVOFLOXACIN 250 MG TABLET PO SCH (09:08)
[2016-12-31] MEDS: ASPIRIN CHEW 81 MG TABLET PO SCH (09:08)
[2016-12-31] MEDS: DOCUSATE SODIUM 100 MG CAPSULE PO SCH ×2 (09:08→20:49)
[2016-12-31] MEDS: FUROSEMIDE 20 MG TABLET PO SCH (09:08)
[2016-12-31] MEDS: TAMSULOSIN 0.4 MG CAPSULE PO SCH ×2 (09:08→20:49)
[2016-12-31] MEDS: ZINC OXIDE 16% PASTE 57 GM TUBE TOP SCH ×2 (09:08→20:49)
[2016-12-31] MEDS: POTASSIUM CHLORIDE 20 MEQ TABLET PO SCH ×3 (09:08→20:49)
[2016-12-31] MEDS: DUTASTERIDE 0.5 MG CAPSULE PO SCH (09:08)
[2016-12-31] MEDS: ENOXAPARIN 30 MG/0.3 ML SYRINGE SUBCUT SCH ×2 (09:09→20:49)
[2016-12-31] MEDS: MUPIROCIN 2% OINT 22 GM TUBE TOP SCH ×2 (09:09→20:48)
--- NOTE | 2016-12-31 10:59 | Event Note ---
Mr. Wilson is generally doing well his wound is healing leg is doing good he is ambulating without difficulty. We are hoping for placement back to the swing bed unit in the next day or 2
[2017-01-01] MEDS: ALBUTEROL/IPRATROPIUM 3 ML NEB RESP TX SCH ×4 (00:10→20:13)
[2017-01-01] MEDS: oxyCODONE IR 5 MG TABLET PO PRN ×4 (00:28→21:55)
--- NOTE | 2017-01-01 09:20 | Event Note ---
Mr. Wilson is doing well still waiting on report from his nasal MRSA screen to return to the swing bed
[2017-01-01] MEDS: POTASSIUM CHLORIDE 20 MEQ TABLET PO SCH ×3 (09:23→21:04)
[2017-01-01] MEDS: FLUoxetine 20 MG CAPSULE PO SCH (09:24)
[2017-01-01] MEDS: PANTOPRAZOLE 40 MG TABLET PO SCH (09:31)
[2017-01-01] MEDS: DUTASTERIDE 0.5 MG CAPSULE PO SCH (09:31)
[2017-01-01] MEDS: MAGNESIUM CHLORIDE 64 MG TABLET PO SCH ×2 (09:32→21:02)
[2017-01-01] MEDS: PREGABALIN 75 MG CAPSULE PO SCH ×3 (09:32→21:02)
[2017-01-01] MEDS: LEVOFLOXACIN 250 MG TABLET PO SCH (09:33)
[2017-01-01] MEDS: TAMSULOSIN 0.4 MG CAPSULE PO SCH ×2 (09:33→21:03)
[2017-01-01] MEDS: FUROSEMIDE 20 MG TABLET PO SCH (09:34)
[2017-01-01] MEDS: ASPIRIN CHEW 81 MG TABLET PO SCH (09:34)
[2017-01-01] MEDS: DOCUSATE SODIUM 100 MG CAPSULE PO SCH ×2 (09:34→21:02)
[2017-01-01] MEDS: MULTIVITAMIN (INTRINSIC) CAPSULE PO SCH ×2 (09:35→21:04)
--- NOTE | 2017-01-01 09:42 | Anesthesia Post-Op ---
Anesthesia Post OP - Post Ansesthetic Evaluation Patient seen in post op: Yes Resp: within normal limits CV: within normal limits Mental: within normal limits Temp: within normal limits Csny-Hl-Ejozhmcty: within normal limits Nausea and Vomiting: within normal limits Pain: within normal limits
[2017-01-01] MEDS: ENOXAPARIN 30 MG/0.3 ML SYRINGE SUBCUT SCH ×2 (10:36→21:04)
[2017-01-01] MEDS: ZINC OXIDE 16% PASTE 57 GM TUBE TOP SCH ×2 (15:52→21:04)
[2017-01-01] MEDS: MUPIROCIN 2% OINT 22 GM TUBE TOP SCH ×2 (15:52→21:04)
[2017-01-01] MEDS: ACETAMINOPHEN 325 MG TABLET PO PRN (21:03)
[2017-01-02] MEDS: ALBUTEROL/IPRATROPIUM 3 ML NEB RESP TX SCH ×3 (01:36→13:38)
--- NOTE | 2017-01-02 08:19 | Discharge Summary ---
Hospital Course - Hospital Course Hospital Course: Mr. Meneses had a right femoral-popliteal bypass with in situ vein in early November had done well but developed a wound opening in the right thigh at the site for branch ligation. He was at the [facility] and [place] and had sudden massive bleeding from this area was treated came in here initially I thought we could wait on it until the following morning but he bled again he was taken to surgery were ligated this portion of the vein graft and then the extra-anatomic vortex vein the vein bypass. This is worked well and the wound in the mid thigh is closing in by secondary intention there is no evidence of infection involving his leg but he did develop a right lung pneumonia that required Levaquin. His fever chills and generalized situation has improved he is ambulating tolerating his diet and getting well. He had severe right foot pain that may well be a reflex sympathetic dystrophy Dr. Avery is helped with lumbar injection he is currently on p.o. OxyContin for that pain he is now ready for transfer back to the swing bed or an think he needs to stay apparently he is living in a trailer as his old home has fallen and has not habitable. He has raj in the medial thigh that I will need to remove next week we will plan for him to return to the swing bed in [facility] today. Diagnosis - Discharge Diagnosis (1) bleeding femoral popliteal graft Status: Acute Specialty Discharge - Follow Up or Referrals Follow up with: Avtar Bashir MD [Physician] - 03/31/17 9:30 am ( ) Joel Stokes MD [Physician] - 01/07/17 3:00 pm () Discharge Plan - Discharge Data Disposition: Swing Bed, [facility] Based, [facility] [place] Condition at Discharge: Stable Discharge Diet: advance to your usual diet Activity: resume usual activities as tolerated Hygiene: may shower Weight Bearing at Discharge: full weight bearing Driving: not until seen by doctor Contact your physician if you experience:: fever over 101, Bleeding - Discharge Medications New Acetaminophen Tab [Tylenol Tab] 650 mg PO Q6H PRN tablet PRN Reason: Pain Mild (1-3) And/Or Fever Aspirin Chew Tab 81 mg PO DAILY tablet guaiFENesin ER TAB [Mucinex] 600 mg PO BID tablet Levofloxacin Tab [Levaquin Tab] 250 mg PO DAILY tablet Magnesium Chloride [Slow Mag] 64 mg PO BID tablet Multivitamin (Intrinsic) [Trinsicon] 1 capsule PO BID capsule Mupirocin 2% Oint [Bactroban 2% Oint] 1 applic TOP BID applic oxyCODONE IR [Roxicodone] 10 mg PO Q6H PRN tablet PRN Reason: Pain Severe (8-10) Potassium Chloride Cap/Tab [K Dur] 20 meq PO TID tablet Furosemide Tab [Lasix Tab] 20 mg PO DAILY tablet Magnesium Hydroxide Susp [Milk of Magnesia] 30 ml PO BID PRN PRN Reason: Constipation Pregabalin [Lyrica] 75 mg PO TID capsule Continue Albuterol/Ipratropium Neb [Duoneb] 3 ml RESP TX RT Q6H Docusate Sodium Cap [Colace Cap] 100 mg PO BID capsule FLUoxetine [PROzac] 40 mg PO DAILY capsule Zinc Oxide 16% Paste [Myra's Butt Paste] 1 applic TOP BID applic Omeprazole [Prilosec] 20 mg PO DAILY Clopidogrel [Plavix] 75 mg PO DAILY diazePAM [Valium] 10 mg PO Q12H PRN PRN Reason: Anxiety Potassium Chloride 20 meq PO DAILY Dutasteride [Avodart] 0.5 mg PO DAILY capsule Tamsulosin [Flomax] 0.4 mg PO BID capsule Discontinued Lisinopril/Hctz 20-25 [Prinzide 20-25] 1 tablet PO DAILY tablet oxyCODONE/ACETAMINOPHEN 5-325 [Percocet 5-325] 2 tablet PO Q6H PRN tablet PRN Reason: Pain Moderate (4-7) Gabapentin Cap/Tab [Neurontin Cap/Tab] 600 mg PO BEDTIME Cyproheptadine Tab [Periactin Tab] 4 mg PO BEDTIME Gabapentin Cap/Tab [Neurontin Cap/Tab] 300 mg PO ,12 Ibuprofen 400 mg PO Q6H PRN PRN Reason: Pain - Follow Up or Referral Follow Up: Avtar Bashir MD [Physician] - 03/31/17 9:30 am ( ) Joel Stokes MD [Physician] - 01/07/17 3:00 pm () - Forms/Instructions Instructions: Peripheral Vascular Disorders (DC), Bacterial Pneumonia (DC) Exam - Constitutional Vitals: Period Temp Pulse Resp BP Sys/Sarmiento Pulse Ox Last 24 Hr 97.7 F-99.1 F 81-97 16-20 102-134/60-82 94-99 Discharge Results Procedures and tests throughout hospitalization: Pending Orders 12/19/16 07:02 Fresh Frozen Plasma Routine Red Blood Cells Leuko Red Routine 12/22/16 14:44 Sputum Culture and Gram Stain Stat 12/27/16 AFB Culture/Smears Stat Fungal Culture w/ Prep Stat Labs on day of discharge: Preliminary micro results at discharge 12/27/16 Unknown Fungal Culture - Preliminary Bronchial Des Lavage Yamilex albicans DS: Provider Date of admission: 12/19/16 06:22 Primary care physician: . No PCP Attending physician on admission: Joel Stokes MD Consults: 12/19/16 06:53 Consult to Pharmacy [CONS] Routine Reason for Pharmacy Consult: Dose/Manage Vancomycin 12/19/16 12:40 Consult to Dietitian [CONS] Routine Reason for Dietitian: Supplements and/or Snacks 12/20/16 18:05 Consult to Pastoral Services [CONS] Routine Comment: per patient request Pastoral Screen: Declines Visit 12/22/16 11:02 Consult to Physician [CONS] Routine Comment: shortness of breath, edema, crackles left lobes Consulting Provider: When should Consulting Provider be notified: Now Consult to Specialist Group: Pulmonology When should Consulting Provider be notified: Now Person Notified: [facility] Date Notified: 12/22/16 Time Notified: 11:40 Consult Notification Comment: Consult given to After Hours Call Service 12/24/16 12:25 Consult to Physician [CONS] Routine Comment: Consulting Provider: Consult to Physician [CONS] Routine Comment: chronic pain right foot Consulting Provider: Phil Avery Consulting Provider Notified: Yes When should Consulting Provider be notified: Now Consult to Specialist Group: Pain Management Person Notified: rosy called Date Notified: 12/24/16 Time Notified: 13:06 12/24/16 12:28 Consult to Physician [CONS] Routine Comment: Consulting Provider: Consult to Physician [CONS] Routine Comment: patient known to you,urinary retention, edema Consulting Provider: Avtar Bashir Consulting Provider Notified: Yes When should Consulting Provider be notified: Now Person Notified: dr. bashir saw Date Notified: 12/24/16 Time Notified: 13:15 12/24/16 12:32 Consult to Physical Therapy [CONS] Routine Reason for Physical Therapy: Ambulation 12/28/16 14:55 Consult to Case Mgmt/Social Srvs [CONS] Routine Reason for Case Mgmt/Social Srvs: Swingbed/SNF/Care Home Discharging clinician: Joel Stokes MD
[2017-01-02] MEDS: FLUoxetine 20 MG CAPSULE PO SCH (09:32)
[2017-01-02] MEDS: POTASSIUM CHLORIDE 20 MEQ TABLET PO SCH ×2 (09:33→14:45)
[2017-01-02] MEDS: DOCUSATE SODIUM 100 MG CAPSULE PO SCH (09:34)
[2017-01-02] MEDS: DUTASTERIDE 0.5 MG CAPSULE PO SCH (09:34)
[2017-01-02] MEDS: PREGABALIN 75 MG CAPSULE PO SCH ×2 (09:35→14:45)
[2017-01-02] MEDS: FUROSEMIDE 20 MG TABLET PO SCH (09:35)
[2017-01-02] MEDS: PANTOPRAZOLE 40 MG TABLET PO SCH (09:35)
[2017-01-02] MEDS: ASPIRIN CHEW 81 MG TABLET PO SCH (09:36)
[2017-01-02] MEDS: MAGNESIUM CHLORIDE 64 MG TABLET PO SCH (09:36)
[2017-01-02] MEDS: TAMSULOSIN 0.4 MG CAPSULE PO SCH (09:36)
[2017-01-02] MEDS: MULTIVITAMIN (INTRINSIC) CAPSULE PO SCH (09:36)
[2017-01-02] MEDS: LEVOFLOXACIN 250 MG TABLET PO SCH (09:36)
[2017-01-02] MEDS: ENOXAPARIN 30 MG/0.3 ML SYRINGE SUBCUT SCH (09:40)
[2017-01-02 11:21] VITALS: BP 109/56
[2017-01-02] MEDS: ZINC OXIDE 16% PASTE 57 GM TUBE TOP SCH (14:47)
[2017-01-02] MEDS: MUPIROCIN 2% OINT 22 GM TUBE TOP SCH (14:59)
== END 2017-01-02 15:16 | DRG 907 ==
LOC: EDUNIT# → EDBD → N.ED 01:04 → N.EDINP 01:38 → N.2E 02:14 → N.ED 03:25 → N.2E 03:25 → N.CC 06:22 → EDSTATUS 07:00 → N.CC 09:00 → N.3E 12-20 14:07
PROVIDERS: ADMIT Surgery; ATTEND Surgery